=== PATIENT | male | born 1975 | race Caucasian/White ===

== ENCOUNTER 2019-05-20 14:44 | Emergency (ER) | payer OTHER, SELFPAY ==
[2019-05-20] VITALS (28 sets, daily range): BP systolic 109–133; BP diastolic 57–82; PULSE 55–77; RESP 6–19; TEMP 36.9; O2SAT 91–98
--- NOTE | 2019-05-20 14:51 | ED.GENADUL_ITS ---
Discharge Plan Disposition Patient Disposition: AGAINST MEDICAL ADVICE Condition: Stable Discharge Details Chief Complaint: Chest Pain Clinical Impression: Chest pain, Arm pain, left Primary Care Provider: Jayleen Bird ED Provider: Hillary Grijalva Home Meds and New Rx's Prescriptions: Continued acetaminophen [Tylenol] 325 MG tablet 1,000 mg PO PRN RF: 0 loratadine [Claritin] 10 MG tablet 10 mg PO PRN RF: 0 Discharge Instructions Instructions: Chest Pain (ED) Additional Instructions: Call your primary care doctor tomorrow to schedule a follow-up appointment for reevaluation and for referral for outpatient stress test. Return immediately to the emergency department if you develop any worsening or new concerning symptoms. Discharge Data Discharge Physician: Hillary Grijalva Medical Decision Making 43-year-old male with a history of sleep apnea who presents with left-sided chest pain since yesterday morning while sitting at his desk. EKG notes a rate of 65, sinus no acute ST-T wave ischemic changes, nondiagnostic. Patient is hemodynamically stable. Patient has had similar episodes over the past few years, with negative cardiac work-up each time, most recently November 2017 in which she had a negative stress test. Heart score 0. PERC negative and no DVT risk factors so doubt PE. Denies any tearing sensation so doubt dissection. As his episodes are similar to previous episodes may be associated to musculoskeletal pain, anxiety, costochondritis. We will do a cardiac work-up, chest x-ray and give a dose of nitro and reassess. 1540 -- no relief with nitro and pt now has headache. Will stop nitro and give toradol, IVF. 1630 -- labs and imaging reviewed and unremarkable. Chest x-ray negative. Patient had requested to go home per nurse. Upon my evaluation, patient admits to return of chest and left arm pain. I advised that patient obtain a second troponin EKG but he is declining at this time. The risks of and disability due to a serious cardiac pathology were explained and patient fully understands and is still requesting to leave. He demonstrates capacity make decisions. AMA form signed. He is advised to follow-up with his primary care doctor for evaluation and for referral for outpatient stress test and to return here if worse. Medical Records Medical records reviewed: Yes I reviewed the patient's medical records. ECG Data Attestation: I personally reviewed and interpreted this ECG (s) as follows: Interpretation: Rate of 65, sinus, no acute ST elevation or depression. QTc 393. QRS 99 HPI General Mode of arrival: ambulatory . Date/Time Provider Initiated Documentation: 05/20/19 14:51 . Limitations to Documentation: no limitations . Information obtained by: patient . HPI Narrative: Patient is a 43-year-old male with a history of sleep apnea who presents with left-sided chest pain since yesterday morning. Patient states he was sitting at his desk at work when the pain started. He describes it as sharp, radiating to his left arm associated with left hand numbness. He states the pain is worse with any movement. He denies any relieving factors. He has taken Tylenol last dose at 1 PM without relief. States the pain is 4/10 currently and at its worst. He admits to occasional dizziness but none at present. He denies any vomiting or shortness of breath, recent travel, recent surgery, leg pain or swelling. He denies any family history of sudden cardiac . Related Data Home Medications Medication Instructions Recorded Confirmed acetaminophen [Tylenol] 1,000 mg PO PRN 01/28/17 05/20/19 loratadine [Claritin] 10 mg PO PRN tab-cap 07/01/17 05/20/19 Allergies Allergy/AdvReac Type Severity Reaction Status Date / Time ANIMALS Allergy Intermediate Uncoded 05/20/19 14:58 Review of Systems Review of Systems All systems reviewed & are unremarkable except as noted in HPI and below Constitutional Reports as per HPI, Denies chills and Denies fever(s) Eyes Denies blurry vision ENT Denies dizziness, Denies sore throat and Denies throat swelling Cardiovascular Reports chest pain and Denies dyspnea Respiratory Denies cough and Denies dyspnea Gastrointestinal Denies abdominal pain, Denies diarrhea and Denies vomiting Genitourinary Denies hematuria and Denies dysuria Musculoskeletal Denies back pain and Denies numbness Integumentary/Breasts Denies lesions and Denies rash Neurologic Denies dizziness, Denies focal weakness and Denies numbness Allergic/Immunologic Denies throat swelling [facility] Medical History Obstructive sleep apnea (Chronic) Surgical History History of hernia repair (Chronic) History of tonsillectomy (Chronic) Hx of cholecystectomy (Chronic) Social History Smoking/Tobacco Use Status: Former Tobacco Use Alcohol Intake: current Alcohol Intake frequency: a few times a month Drug use: Never Do you feel safe at home: Yes Do you feel safe in your relationship?: Yes Exam Const General: cooperative, healthy appearing and no acute distress HENMT Head: normal to inspection Face and sinus: normal facial exam Eyes General: appearance normal, both eyes and all related structures Pupils: PERRL EOM: EOM intact bilaterally Neck Neck: normal visual inspection and No submandibular swelling Lymphatic: no lymphadenopathy noted Chest Chest: normal inspection of the chest, normal palpation of entire chest wall, no crepitus and no tenderness Resp Effort & Inspection: normal respiratory effort and able to speak in complete sentences Auscultation: clear to auscultation bilaterally Cardio Rate: regular rate Rhythm: regular rhythm GI Inspection: normal to inspection Palpation: soft, not firm, not rigid and nontender Auscultation: normal bowel sounds Back/Spine/Pelvis Pelvis: no pain with anterior-posterior compression Skin General skin exam: no rashes or lesions noted Neuro General: alert, awake and oriented x3 Cognition: normal cognition Speech: speech normal Motor: muscle tone normal throughout Sensory Exam: no sensory deficits noted Extrem General: normal to inspection, full ROM, normal capillary refill, no calf tenderness bilaterally and no edema Psych Appearance: grossly normal Mental Status: mental status grossly normal Speech and Movement: speech and movement normal Affect: normal affect
--- NOTE | 2019-05-20 15:17 | DI.RAD_ITS ---
SYMPTOM/DIAGNOSIS: CHEST PAIN, R/O ACUTE DISEASE CHEST X-RAY: PA and lateral. Comparison 11/04/17 The heart is normal in size. The lungs are clear. The mediastinal structures and pleura appear intact. CONCLUSION: Normal chest.
[2019-05-20] MEDS: Aspirin 325 MG TAB PO (15:29)
[2019-05-20 15:30] LABS: Abs Immature Grans 0.02 k/cumm (0.0-0.09); Absolute Basophil Count 0.05 k/cumm (0.0-0.2); Absolute Eosinophil Count 0.21 k/cumm (0.0-0.7); Absolute Lymphocyte Count 2.21 k/cumm (1.2-3.4); Absolute Monocyte Count 0.75 k/cumm (0.11-0.7); Absolute Neutrophil Count 5.64 k/cumm (1.2-6.7); Basophils % 0.6; Eosinophils % 2.4; HCT 46.8 % (40.0-50.0); HGB 15.7 g/dL (13.5-17.5); Immature Grans % 0.2; Lymphocytes % 24.9; Mean Corp. HGB Concentration 33.5 g/dL (32.0-36.0); Mean Corpuscular Hemoglobin 28.9 pg (27.0-33.0); Mean Corpuscular Volume 86.2 fL (80-95); Mean Platelet Volume 10.8 fL (8.0-11.0); Monocytes % 8.4; Neutrophils % 63.5; Platelet Count 289 x1000/uL (130-400); RBC 5.43 m/cumm (4.50-6.00); White Blood Cell Count 8.88 k/cumm (4.4-10.8)
[2019-05-20] MEDS: Ketorolac 30 MG/ML VIAL IVP (15:52)
[2019-05-20] MEDS: Normal Saline 1,000 ML 1000 ML IV (15:52)
[2019-05-20 16:10] LABS: ALT 29 U/L (12-78); AST 15 U/L (15-37); Albumin 3.9 g/dL (3.4-5.0); Alkaline Phosphatase 78 U/L (46-116); Anion Gap 9.7 mmol/L (3-11); BUN 17 mg/dL (7-18); Bilirubin, Total 0.3 mg/dL (0.2-1.0); CO2 27.3 mmol/L (21.0-32.0); CREATININE 1.01 mg/dL (0.70-1.30); Calcium 8.5 mg/dL (8.5-10.1); Chloride 101 mmol/L (98-107); Glucose 91 mg/dL (70-100); Magnesium 1.8 mg/dL (1.8-2.4); Potassium 4.1 mmol/L (3.5-5.1); Sodium 138 mmol/L (136-145); Total Protein 7.4 g/dL (6.4-8.2)
[2019-05-20 16:20] LABS: Troponin I < 0.05 ng/mL (0.00-0.06)
--- NOTE | 2019-05-20 16:29 | DI.VRAD_ITS ---
EXAM: XR Chest, 2 Views EXAM DATE/TIME: 05/20/2019 3:19 PM CLINICAL HISTORY: 43 years old, male; Left-sided chest pain; Patient HX: Chest pain; Per PT: Left center; Additional info: R/O acute disease TECHNIQUE: Imaging protocol: XR of the chest, 2 views. COMPARISON: CR PORTABLE CHEST ONE VIEW 11/04/2017 7:58 AM FINDINGS: Lungs: Unremarkable. No consolidation. Pleural space: Unremarkable. No pleural effusion. No pneumothorax. Heart/Mediastinum: Unremarkable. No cardiomegaly. Bones/joints: Mild scoliosis. IMPRESSION: No acute finding. Dictated and Authenticated by: Sandra Seymour MD. Ordering:ANALISA Thornton MD
== END 2019-05-20 17:10 | disposition left against medical advice (07) ==
PROVIDERS: Emergency Provider Physician Assistant; PCP Nurse Practitioner Family
DX: R07.9 Chest pain, unspecified (principal); M79.602 Pain in left arm; Z53.29 Procedure and treatment not carried out because of patient's decision for other reasons; G47.33 Obstructive sleep apnea (adult) (pediatric)
CPT/HCPCS: 36415; 80053; 93005; 96361; 96374; 99285; 71046; 83735; 84484; 85025; 93010; J1885

== ENCOUNTER 2019-12-23 11:09 | Emergency (ER) | payer MEDICAID, SELFPAY ==
[2019-12-23 11:11] VITALS: BP 137/87; PULSE 73; TEMP 36.8; O2SAT 97
--- NOTE | 2019-12-23 11:15 | DI.RAD_ITS ---
EXAM: XR FOOT RT COMPLETE CLINICAL HISTORY: pain s/p trauma. TECHNIQUE: 2D digital imaging was performed. COMPARISON: No exams were available for comparison FINDINGS: BONES: No acute fracture is present. No bony destructive lesion is seen. JOINTS: No dislocation present. There are minimal degenerative changes. SOFT TISSUE: Normal. IMPRESSION: Unremarkable radiographs of the right foot. DATA REPOSITORY: RADIATION DOSE DELIVERED:
--- NOTE | 2019-12-23 11:19 | ED.GENADUL_ITS ---
Discharge Plan Disposition Patient Disposition: HOME Condition: Stable Discharge Details Chief Complaint: Orthopedic Clinical Impression: Foot pain, right Primary Care Provider: Jayleen Bird ED Provider: Oc Ortiz Home Meds and New Rx's Prescriptions: Continued acetaminophen [Tylenol] 325 MG tablet 1,000 mg PO PRN RF: 0 loratadine [Claritin] 10 MG tablet 10 mg PO PRN RF: 0 Discharge Instructions Additional Instructions: you can take 1000mg tylenol and 600mg ibuprofen every 6 hours for pain as needed if pain continues in a week follow up with your primary care provider if you have severe worsening pain, fevers or spreading redness of the skin return to the emergency department Medical Decision Making 44 yo male comes in with right foot pain. States over a week ago hit the inner aspect on a table and has had pain since and now feels a lump so came here for ane tricia. Denies pain elsewhere such as headache, neck pain, chest pain or abdominal pain. Has no pain in the ankle with full rom, normal pulses and sensation. Pain is localized to mid 1st metatarsal and does have hard area of swelling. Suspect bone spur but will xray to eval for fx. xray unremarkable on my read, suspect contusion with swelling, advised follow up with pcp if pain contineus and return precautions given Differential Diagnosis Differential Diagnosis: fracture, bone spur Imaging Data Radiologic Study: Attestation: I personally reviewed and interpreted this imaging study as follows: Imaging: X-Ray My impression: no acute findings HPI General Mode of arrival: ambulatory . Date/Time Provider Initiated Documentation: 12/23/19 11:10 . Limitations to Documentation: no limitations . Information obtained by: patient . History of Present Illness 44 year old M presents to the emergency department with the chief complaint of right foot pain, described as moderate, Patient started experiencing this day(s) (10) and it has been constant. No relieving factors improve symptom(s), No exacerbating factors reported . Patient notes no other symptoms.. Related Data Home Medications Medication Instructions Recorded Confirmed acetaminophen [Tylenol] 1,000 mg PO PRN 01/28/17 12/23/19 loratadine [Claritin] 10 mg PO PRN tab-cap 07/01/17 12/23/19 Allergies Allergy/AdvReac Type Severity Reaction Status Date / Time ANIMALS Allergy Intermediate Uncoded 12/23/19 11:14 General Stated Complaint: Orthopedic TJ: 4 Review of Systems All systems reviewed & are unremarkable except as noted in HPI and below Constitutional Constitutional: Denies chills, Denies fever(s) and Denies weakness Cardiovascular Cardiovascular: Denies chest pain and Denies dyspnea Respiratory Respiratory: Denies cough and Denies dyspnea Gastrointestinal Gastrointestinal: Denies abdominal pain, Denies nausea and Denies vomiting Musculoskeletal Musculoskeletal: Denies joint swelling Neurologic Neurologic: Denies weakness [facility] Social History Smoking/Tobacco Use Status: Former Tobacco Use Alcohol Intake: current Alcohol Intake frequency: a few times a month Drug use: Never Substance use type: does not use Do you feel safe at home: Yes Do you feel safe in your relationship?: Yes Exam Const General: no acute distress Orientation: alert HENMT Head: normal to inspection Ears: external ears normal General nose exam: external nose normal Mouth: moist mucous membranes Eyes General: appearance normal, both eyes and all related structures Neck Neck: normal visual inspection Resp Effort & Inspection: normal respiratory effort and able to speak in complete sentences Cardio Rate: regular rate Skin General skin exam: no rashes or lesions noted Neuro General: alert and oriented x3 Extrem General: full ROM and normal capillary refill Psych Mental Status: mental status grossly normal Course Vital Signs Vital signs: Vital Signs Temperature 36.8 C 12/23/19 11:11 Pulse 73 12/23/19 11:11 Blood Pressure 137/87 12/23/19 11:11 Pulse Oximetry 97 12/23/19 11:11 Temperature 36.8 C 12/23/19 11:11 Temperature Source Temporal Artery Scan 12/23/19 11:11 Pulse 73 12/23/19 11:11 Respiratory Effort Non-Labored 12/23/19 11:13 Blood Pressure 137/87 12/23/19 11:11 Blood Pressure Position Sitting 12/23/19 11:11 Pulse Oximetry 97 12/23/19 11:11 Oxygen Delivery Method Room Air 12/23/19 11:11 Oxygen Flow Rate 0 12/23/19 11:11 Pain Level 10 12/23/19 11:11
== END 2019-12-23 11:47 | disposition home or self-care (01) ==
PROVIDERS: Emergency Provider Emergency Medicine; PCP Nurse Practitioner Family
DX: M25.571 Pain in right ankle and joints of right foot (principal)
CPT/HCPCS: 99283; 73630

== ENCOUNTER 2021-02-10 09:09 | Emergency (ER) | payer MEDICAID, SELFPAY ==
[2021-02-10] VITALS (26 sets, daily range): BP systolic 93–134; BP diastolic 65–79; PULSE 66–93; RESP 10–24; TEMP 36.4–36.6; O2SAT 99–100
--- NOTE | 2021-02-10 09:00 | RT.EKG_ITS ---
APPROVED REPORT Exam: Resting ECG Patient Location: E HR:75 bpm ECG Measurements Heart Rate 75 AXIS WV 151 P 61 QRSd 101 QRS 43 QT 354 T 68 QTc 396 Conclusion Sinus rhythm...normal P axis, V-rate 60- 99 I have reviewed and interpreted ECG and agree with software generated interpretation.
--- NOTE | 2021-02-10 09:26 | W.ED.GENAD ---
Discharge Plan Disposition Patient Disposition: HOME Condition: Stable Discharge Details Clinical Impression: Neutropenia, Colloid cyst of brain Primary Care Provider: Jayleen Bird ED Provider: Cali Curry Home Meds and New Rx's Prescriptions: Continued acetaminophen [Tylenol] 325 MG tablet 1,000 mg PO PRN RF: 0 loratadine [Claritin] 10 MG tablet 10 mg PO PRN RF: 0 Discharge Instructions Instructions: Neutropenia (ED) Additional Instructions: At this time your CT of your head reveals a colloid cyst, I personally spoke with Dr. Bran, neurosurgery at [facility] regarding this. His office will be reaching out to you Friday or Friday to set up outpatient reevaluation. Your laboratory values reveal that your white blood cell count is low and you will require further evaluation for this. I have placed you on our care management team to help expedite outpatient follow-up through your primary care provider and/or hematology-oncology. Please watch for new or worsening symptoms and return to the ER for any concerns. Discharge Data Discharge Date/Time-TO BE ENTERED AT DEPARTURE: 02/10/21 12:13 Medical Decision Making 45-year-old gentleman with no significant past medical history presents to the ER for multiple complaints. Global headache intermittent for 3 years, dizziness described more as weakness or that he could pass out, not like the room is spinning, intermittent blurry vision. He states his symptoms were worse yesterday but they have not completely resolved so he is here for evaluation. Clinically he appears well, nontoxic, neurologically intact. No nuchal rigidity. Given his multiple vague symptoms I will obtain a cardiac work-up I will also like to obtain a head CT for further evaluation of potential intracranial process. Will obtain IV access, give IV fluids, and reassess. Visual acuity bilaterally 20/25, right eye 20/50, left eye 20/30 Laboratory values reveal a white blood cell count of 0.67 hemoglobin 11.6 hematocrit 32.9 platelet count 112 absolute neutrophil 0.04. INR 1.1, sodium 130 potassium 4.2 chloride 95, creatinine 1.1 with a GFR greater than 60. Glucose 66. Calcium 8.3 magnesium 2.0 troponin less than 0.05. This neutropenia appears new however are most recent CBC is at least a couple of years old. He denies any fever or symptoms that would be consistent with acute illness. CT imaging of head revealed 8 mm colloid cyst, nothing acute. I was able to speak with with neurosurgery, Dr. Bran at [facility]. He does not believe the patient requires emergent transfer. He will have his office contact the patient on Friday or Friday of next week and set up outpatient reevaluation to discuss potential elective procedures. Given his newfound neutropenia without any obvious signs of infection, my plan is to place him on the care management list to help expedite outpatient heme-onc follow-up. I discussed his work-up including my conversation with Dr. Bran, as well as his neutropenia and my concern for underlying illness. He does understand that he will need outpatient neurology follow-up and will need follow-up with likely heme-onc for further evaluation of his neutropenia. At this time he reports that he is feeling improvement and is comfortable discharge. He was given standard discharge instructions and strict return precautions. Patient has no additional questions or concerns and is comfortable with this plan. Upon discharge he is able to ambulate steadily. Medical Records Medical records reviewed: Yes I reviewed the patient's medical records. Imaging Data Radiologic Study: Attestation: I personally reviewed and interpreted this imaging study as follows: Imaging: X-Ray Radiologist's impression: Chest x-ray read by radiology as no acute findings Radiologic Study #2: Attestation: I personally reviewed and interpreted this imaging study as follows: Imaging: CT Scan Radiologist's impression: CT of head read by radiology as an 8 mm colloid cyst at the foramen of Monro. No acute abnormality. No significant ventricular dilatation Lab Data Lab results reviewed: Yes I reviewed the patient's lab results. Labs: Laboratory Tests Range/Units 02/10/21 02/10/21 02/10/21 09:28 09:28 09:28 WBC (4.4-10.8) 10^3/uL 0.67 L* RBC (4.36-5.78) 10^6/uL 3.21 L Hgb (13.5-17.5) g/dL 11.6 L Hct (40.0-50.0) % 32.9 L MCV (80-95) fL 102.5 H MCH (27.0-33.0) pg 36.1 H MCHC (32.0-36.0) % 35.3 RDW (11.8-14.1) % 13.1 Plt Count (130-400) 10^3/uL 112 L MPV (8.0-11.0) fL 9.5 Immature Gran % 0.0 Neutrophils % 6.0 Lymphocytes % 85.0 Atypical Lymphs % 3 Monocytes % 6.0 Eosinophils % 0.0 Basophils % 0.0 Nucleated RBC % % 1 Absolute Neutrophils (1.2-6.7) 10^3/uL 0.04 L* Absolute Lymphocytes (1.2-3.4) 10^3/uL 0.59 L Absolute Monocytes (0.1-0.8) 10^3/uL 0.04 L Absolute Eosinophils (0.0-0.7) 10^3/uL 0.00 Absolute Basophils (0.0-0.2) 10^3/uL 0.00 RBC Morphology See below Basophilic Stippling Present Macrocytosis 2+ PT (9.3-11.0) sec 10.9 INR (0.9-1.1) 1.1 APTT (21.0-27.5) sec 22.5 Sodium (136-145) mmol/L 130 L Potassium (3.5-5.1) mmol/L 4.2 Chloride (98-107) mmol/L 97 L Carbon Dioxide (21.0-32.0) mmol/L 31.6 Anion Gap (3-11) mmol/L 1.4 L BUN (7-18) mg/dL 17 Creatinine (0.70-1.30) mg/dL 1.1 Estimated GFR/1.73 m2 (mL/min/1.73m2) >= 60.00 Glucose (74-106) mg/dL 66 L Calcium (8.5-10.1) mg/dL 8.3 L Magnesium (1.8-2.4) mg/dL 2.0 Total Bilirubin (0.2-1.0) mg/dL 0.3 AST (15-37) U/L 20 ALT (16-63) U/L 35 Alkaline Phosphatase (46-116) U/L 74 Troponin I (<0.06) ng/mL < 0.05 Total Protein (6.4-8.2) g/dL 7.5 Albumin (3.4-5.0) g/dL 3.9 TSH (0.36-3.74) uIU/mL 1.18 ECG Data Attestation: I personally reviewed and interpreted this ECG (s) as follows: Interpretation: Sinus rhythm, ventricular of 75. No STEMI. Please see official report by Dr. Shayla MARTINEZ General Mode of arrival: ambulatory. Date/Time Provider Initiated Documentation: 02/10/21 09:26. Limitations to Documentation: no limitations. Information obtained by: patient. HPI Narrative: This is a 45-year-old gentleman who denies significant past medical history. He denies smoking or drug use. Reports alcohol a few times a month. He presents today with multiple complaints. He reports a headache more often than not, global, intermittent for the last few years. He reports that occasionally his headaches are associated with nausea and vomiting but very infrequently. He also reports intermittent blurry vision in both eyes, was worse yesterday, almost back to baseline now. He reports dizziness has also been intermittent, the dizziness feels more like generalized weakness or like he could pass out as opposed to the room spinning. He has occasionally felt a little ataxic but has never fallen because of it. He denies recent illness or trauma. He denies neck pain, chest pain, shortness of breath, abdominal pain, nausea, vomiting, focal weakness, numbness, tingling, change in bowel or bladder habits. He tells me that nothing really makes his symptoms worse or better. Typically simply resolve on their own. Related Data Home Medications Medication Instructions Recorded Confirmed acetaminophen [Tylenol] 1,000 mg PO PRN 01/28/17 02/11/21 loratadine [Claritin] 10 mg PO PRN tab-cap 07/01/17 02/11/21 Allergies Allergy/AdvReac Type Severity Reaction Status Date / Time ANIMALS Allergy Intermediate Uncoded 02/11/21 10:23 General Stated Complaint: Dizzy/Sync TJ: 3 Review of Systems Constitutional Constitutional: Reports fatigue, Denies fever(s), Reports headache(s) and Reports weakness Eyes Eyes: Reports blurry vision and Denies diplopia ENT Ears, Nose, Mouth, and Throat: Denies vertigo, Reports dizziness, Reports headache(s) and Denies neck pain Cardiovascular Cardiovascular: Denies chest pain and Denies dyspnea Respiratory Respiratory: Denies cough and Denies dyspnea Gastrointestinal Gastrointestinal: Denies abdominal pain, Denies nausea and Denies vomiting Musculoskeletal Musculoskeletal: Denies back pain and Denies neck pain Integumentary/Breasts Skin/Breast: Denies rash Neurologic Neurologic: Denies vertigo, Reports dizziness, Reports headache(s) and Reports weakness Endocrine Endocrine: Reports fatigue Hematologic/Lymphatic Hematologic/Lymphatic: Denies easy bleeding and Denies easy bruising [facility] Medical History Obstructive sleep apnea Surgical History History of hernia repair History of tonsillectomy Hx of cholecystectomy Social History Smoking/Tobacco Use Status: Former Tobacco Use Smoking risk assessment performed?: Yes Alcohol Intake: current Alcohol Intake frequency: a few times a month Drug use: Never Substance use type: does not use Do you feel safe at home: Yes Do you feel safe in your relationship?: Yes Exam Const General: cooperative, healthy appearing, comfortable and no acute distress Orientation: alert, awake and oriented x3 HENMT Head: normal to inspection, normocephalic and atraumatic Ears: external ears normal, TM's normal bilaterally and EAC's normal General nose exam: external nose normal Face and sinus: normal facial exam Mouth: moist mucous membranes Throat: posterior oropharynx normal Eyes General: appearance normal, both eyes and all related structures Alignment and Position: alignment normal Periorbital: periorbital findings normal Eyelids: eyelids normal Conjunctivae: conjunctivae normal Sclera: sclerae normal Cornea: corneas normal Pupils: PERRL EOM: EOM intact bilaterally Direct ophthalmoscopy: normal light reflex Other: No nystagmus Neck Neck: normal visual inspection, full ROM, no lymphadenopathy, no meningeal signs, trachea midline, supple and nontender Resp Effort & Inspection: normal respiratory effort and able to speak in complete sentences Auscultation: clear to auscultation bilaterally Cardio Rate: regular rate Rhythm: regular rhythm GI Palpation: soft, not firm, no guarding and nontender Back/Spine/Pelvis Back: No back tenderness Skin General skin exam: no rashes or lesions noted Neuro General: patient alert, patient awake, patient oriented x3, moves all extremities and no focal motor deficits Cranial Nerves: CN's II-XI intact bilaterally Cognition: normal cognition Speech: speech normal Gait: normal gait Motor: muscle tone normal throughout, strength 5/5 throughout, no pronator drift, no movement abnormalities noted and no fasciculations Sensory Exam: no sensory deficits noted Coordination: [id number] test normal, [id number] test normal and Does not sway with eyes open Extrem General: normal to inspection, full ROM and capillary refill normal Psych Appearance: grossly normal Mental Status: mental status grossly normal Course Vital Signs Vital signs: Vital Signs Temperature 36.4 C L 02/10/21 09:13 Pulse 82 02/10/21 09:13 Respiratory Rate 18 02/10/21 09:13 Blood Pressure 134/79 02/10/21 09:13 Pulse Oximetry 99 02/10/21 09:13 Temperature 36.4 C L 02/10/21 09:13 Temperature Source Temporal Artery Scan 02/10/21 09:13 Pulse 82 02/10/21 09:13 Respiratory Rate 18 02/10/21 09:13 Respiratory Effort Non-Labored 02/10/21 09:18 Blood Pressure 134/79 02/10/21 09:13 Blood Pressure Position Sitting 02/10/21 09:13 Pulse Oximetry 99 02/10/21 09:13 Oxygen Delivery Method Room Air 02/10/21 09:13 Oxygen Flow Rate 0 02/10/21 09:13 Pain Level 5 02/10/21 09:13
[2021-02-10] MEDS: Normal Saline 1,000 ML 125 ML IV (09:45)
[2021-02-10] MEDS: Normal Saline Flush 10 ML SYR IVP (09:45)
[2021-02-10 09:49] LABS: HCT 32.9 % (40.0-50.0); HGB 11.6 g/dL (13.5-17.5); MCH 36.1 pg (27.0-33.0); MCHC 35.3 % (32.0-36.0); MCV 102.5 fL (80-95); MPV 9.5 fL (8.0-11.0); RBC 3.21 10^6/uL (4.36-5.78); RDW 13.1 % (11.8-14.1); RDW-SD 49.1 fL
--- NOTE | 2021-02-10 10:02 | DI.CT_ITS ---
EXAM: CT HEAD WO CLINICAL HISTORY: CARCAMO, blurry vision, dizzy. TECHNIQUE: Imaging Protocol: Axial computed tomography images with coronal and sagittal reformatted images were created and reviewed COMPARISON: CT HEAD WITHOUT CONTRAST from 07/17/2016 FINDINGS: Ventricles and Extra axial spaces: Normal in size and morphology for the patient's age. There is an 0 .8 cm round hyperdense mass at the foramen of Monro. This is consistent with a colloid cyst. Hemorrhage: None. Cerebral parenchyma: Normal. No acute territorial infarct. Midline shift: None. Brainstem/Cerebellum: Normal. Calvarium: Normal. Visualized Paranasal sinuses/Mastoids: Clear. Soft Tissues: Unremarkable. IMPRESSION: 1. No acute intracranial process. 2. Round hyperdense mass at the foramen of Monro most consistent with a colloid cyst. 3. No ventricular dilatation. RADIATION DOSE DELIVERED: 946.92mGy.cm Total DLP DATA REPOSITORY: All CT scans at this facility are submitted to the National Radiology Data Registry (NRDR) Dose Index Registry (DIR) with the [employer] ([employer]). RADIATION OPTIMIZATION: All CT scans at this facility use at least one of these dose optimization te chniques: automated exposure control; mA and/or kV adjustment per patient size (includes targeted exa ms where dose is matched to clinical indication); or iterative reconstruction.
[2021-02-10 10:05] LABS: INR 1.1 (0.9-1.1); PTT Activated 22.5 sec (21.0-27.5); Prothrombin Time 10.9 sec (9.3-11.0)
--- NOTE | 2021-02-10 10:07 | DI.RAD_ITS ---
EXAM: XR CHEST 2V PA LATERAL CLINICAL HISTORY: dizzy TECHNIQUE: 2D digital imaging was performed. COMPARISON: CR XR CHEST 2V PA LATERAL from 05/20/2019 FINDINGS: MEDIASTINUM: Normal. HEART: Normal. PULMONARY VASCULATURE: Normal. LUNGS: Clear. PLEURAL SPACE: No pleural effusion or pneumothorax. BONE:Within normal limits for the patient's age. Stable scoliosis. OTHER FINDINGS:Normal. IMPRESSION: No acute pulmonary findings. DATA REPOSITORY: RADIATION DOSE DELIVERED:
[2021-02-10 10:11] LABS: Absolute Neutrophil Count 0.04 10^3/uL (1.2-6.7); Nucleated RBC 1 %; WBC 0.67 10^3/uL (4.4-10.8)
[2021-02-10 10:12] LABS: ALT 35 U/L (16-63); AST 20 U/L (15-37); Absolute Lymphocyte Count 0.59 10^3/uL (1.2-3.4); Albumin 3.9 g/dL (3.4-5.0); Alkaline Phosphatase 74 U/L (46-116); Anion Gap 1.4 mmol/L (3-11); Atypical Lymphocytes % 3; BUN 17 mg/dL (7-18); Bilirubin, Total 0.3 mg/dL (0.2-1.0); CO2 31.6 mmol/L (21.0-32.0); CREATININE 1.1 mg/dL (0.70-1.30); Calcium 8.3 mg/dL (8.5-10.1); Chloride 97 mmol/L (98-107); Glucose 66 mg/dL (74-106); Potassium 4.2 mmol/L (3.5-5.1); Sodium 130 mmol/L (136-145); TSH (W/Ref FT4) 1.18 uIU/mL (0.36-3.74); Total Protein 7.5 g/dL (6.4-8.2); Troponin I < 0.05 ng/mL (<0.06)
[2021-02-10 10:13] LABS: Absolute Monocyte Count 0.04 10^3/uL (0.1-0.8)
[2021-02-10 10:14] LABS: Basophilic Stippling Present; Diff Comment Manual Differential; Macrocytosis 2+; Platelet Count 112 10^3/uL (130-400)
--- NOTE | 2021-02-10 10:24 | DI.VRAD_ITS ---
PROCEDURE INFORMATION: Exam: CT Head Without Contrast Exam date and time: 02/10/2021 10:03 AM Age: 45 years old Clinical indication: Pain; Headache not specified; Patient HX: Headache, blurry vision, dizzy. TECHNIQUE: Imaging protocol: Computed tomography of the head without contrast. COMPARISON: CT HEAD WITHOUT CONTRAST 07/17/2016 2:57 PM FINDINGS: Brain: The examination shows a rounded hyperdense mass measuring 8 mm in diameter at the foramen of Monro. This is consistent with a colloid cyst. There is no significant ventricular dilatation. No abnormal parenchymal densities are seen. There is no intracranial hemorrhage edema or other acute abnormality. Cerebral ventricles: The ventricles are not dilated. Bones/joints: Unremarkable. No acute fracture. Paranasal sinuses: Visualized sinuses are unremarkable. No fluid levels. Mastoid air cells: Visualized mastoid air cells are well aerated. Soft tissues: Unremarkable. IMPRESSION: 1. There is an 8 mm colloid cyst at the foramen of Monro. 2. No acute abnormality. 3. No significant ventricular dilatation. Dictated and Authenticated by: Moshe Henderson MD. Ordering:YADIEL Leiva MD
--- NOTE | 2021-02-10 10:26 | DI.VRAD_ITS ---
PROCEDURE INFORMATION: Exam: XR Chest Exam date and time: 02/10/2021 10:09 AM Age: 45 years old Clinical indication: Pain; Patient HX: Dizzy SOB TECHNIQUE: Imaging protocol: XR of the chest. Views: 2 views. COMPARISON: CR XR CHEST 2V PA LATERAL 05/20/2019 4:01 PM FINDINGS: Lungs: Unremarkable. No consolidation. Pleural spaces: Unremarkable. No pleural effusion. No pneumothorax. Heart/Mediastinum: Unremarkable. No cardiomegaly. Bones/joints: Mild scoliosis. IMPRESSION: No acute findings. Dictated and Authenticated by: Moshe Henderson MD. Ordering:YADIEL Leiva MD
--- NOTE | 2021-02-10 12:15 | NUR.NOTE ---
Referral given to Care Management to f/u with heme onc at [facility] [place] to f/u neutropeniaNursing Note:
== END 2021-02-10 12:13 | disposition home or self-care (01) ==
PROVIDERS: Emergency Provider Physician Assistant; PCP Nurse Practitioner Family
DX: D70.9 Neutropenia, unspecified (principal); G93.0 Cerebral cysts
CPT/HCPCS: 80053; 93005; 96360; 99285; 70450; 71046; 83735; 84443; 84484; 85025; 85610; 85730; 93010; 99284

== ENCOUNTER 2021-02-11 10:16 | Inpatient (IN) | payer MEDICAID, SELFPAY ==
[2021-02-11] VITALS (51 sets, daily range): BP systolic 88–145; BP diastolic 67–83; PULSE 63–104; RESP 9–29; TEMP 36.7–38.9; O2SAT 97–100
[2021-02-11] MEDS: Normal Saline 1,000 ML 1000 ML IV (10:34)
[2021-02-11] MEDS: Ondansetron 4 MG/2 ML VIAL IVP (10:34)
[2021-02-11 10:44] LABS: HCT 31.5 % (40.0-50.0); HGB 11.1 g/dL (13.5-17.5); MCH 35.7 pg (27.0-33.0); MCHC 35.2 % (32.0-36.0); MCV 101.3 fL (80-95); MPV 9.6 fL (8.0-11.0); Nucleated RBC 0 %; RBC 3.11 10^6/uL (4.36-5.78); RDW 12.8 % (11.8-14.1); RDW-SD 47.8 fL
[2021-02-11 10:52] LABS: ALT 34 U/L (16-63); AST 21 U/L (15-37); Albumin 3.9 g/dL (3.4-5.0); Alkaline Phosphatase 72 U/L (46-116); Anion Gap 8.3 mmol/L (3-11); BUN 16 mg/dL (7-18); Bilirubin, Total 0.4 mg/dL (0.2-1.0); CO2 30.7 mmol/L (21.0-32.0); Calcium 8.5 mg/dL (8.5-10.1); Chloride 103 mmol/L (98-107); Glucose 144 mg/dL (74-106); Potassium 4.3 mmol/L (3.5-5.1); Sodium 142 mmol/L (136-145); Total Protein 7.4 g/dL (6.4-8.2)
[2021-02-11 11:12] LABS: WBC 0.64 10^3/uL (4.4-10.8)
[2021-02-11 11:13] LABS: Platelet Count 99 10^3/uL (130-400)
[2021-02-11 11:14] LABS: Absolute Lymphocyte Count 0.55 10^3/uL (1.2-3.4); Absolute Monocyte Count 0.03 10^3/uL (0.1-0.8); Atypical Lymphocytes % 3
[2021-02-11 11:15] LABS: Absolute Neutrophil Count 0.06 10^3/uL (1.2-6.7); Basophilic Stippling Present; Diff Comment Manual Differential; Polychromasia Present
[2021-02-11] MEDS: ACETAMINOPHEN 1,000 MG/100 ML BTL 400 MG IVPB (11:17)
[2021-02-11 11:59] LABS: Bilirubin Negative (Negative); Blood Negative (Negative); Clarity Clear (Clear); Glucose Negative (Negative); Ketones Negative (Negative); Leukocyte Esterase Negative (Negative); Nitrite Negative (Negative); Urobilinogen 0.2 EU/dL (Up TO 0.2)
[2021-02-11 12:40] LABS: Mono Screening Negative (Negative)
--- NOTE | 2021-02-11 12:41 | W.ED.GENAD ---
Discharge Plan Disposition Patient Disposition: [facility] INPATIENT Condition: Serious Discharge Details Chief Complaint: Headache Clinical Impression: Pancytopenia, Headache, Dizziness Primary Care Provider: Jayleen Bird ED Provider: Cali Curry Home Meds and New Rx's Prescriptions: No Action acetaminophen [Tylenol] 325 MG tablet 1,000 mg PO PRN RF: 0 loratadine [Claritin] 10 MG tablet 10 mg PO PRN RF: 0 Medical Decision Making 45-year-old gentleman who denies any significant past medical history presents to the ER today for ongoing symptoms. He was actually seen in the ER yesterday by me, diagnosed with neutropenia and a colloid cyst. Neurosurgery was contacted and will follow him as an outpatient. During his evaluation yesterday he reported that his symptoms have been increasing in frequency and severity over the past couple of weeks although when I personally saw him he reports his symptoms were worse yesterday than they were at the time of his visit. He was subsequently discharged and went home feeling well throughout the evening. He awoke this morning and reports that his symptoms have returned. Nausea, vomiting, photosensitivity, headache, generalized weakness, feeling like he could pass out, blurry vision. Clinically he appears well, nontoxic, no meningeal signs, and is neurologically intact. Given his neutropenia, will obtain IV access, repeat laboratory values and recheck to heme-onc at [facility]. At [address] Ponce. He reports that the differential is wide and he certainly needs a further evaluation and work-up. Based upon the patient's clinical presentation he feels as though the patient does not meet requirement to transfer emergently to his facility and believes the patient could be evaluated at our facility. If our hospitalist team is uncomfortable with our plan then he recommends I speak with their hospitalist team. In the meantime he recommends adding on a folate, B12, TSH, blood cultures, urinalysis. Plus or minus an LP if clinically indicated. He also brings up the idea of a atypical endocarditis presentation. He would also recommend seeing if we can get a blood smear evaluated by a pathologist in a more timely fashion. Ultimately he believes the patient will need a bone biopsy. I then spoke with our pathologist, Dr. Noble. He agrees that the case is interesting in the differential is wide from myeloid neoplastic disorder, infectious process, DIC, etc. He recommends adding on an LDH. He is able to let me know that the smear will be read likely tomorrow morning. Patient is afebrile, no meningeal signs. He reports a headache intermittent for years. Difficult to say that an LP is emergently indicated, especially in the setting of neutropenia if this is not infectious we could introduce infection or other complications. Patient was given 1 g IV Tylenol, reports his headache is a 6 out of 10 and declines any additional pain medication. I then discussed the case with our hospitalist team Dr. Jimenez. He recommends adding on a CRP, D-dimer, Covid test, Monospot. He is agreeable to admission but would like to await the Covid test to know where to place the patient. D-dimer elevated, negative Covid test. CTA of chest and abdomen and pelvis CT with contrast ordered, awaiting admission. Medical Records Medical records reviewed: Yes I reviewed the patient's medical records. Lab Data Lab results reviewed: Yes I reviewed the patient's lab results. Lab results narrative: 02/11/21 12:34 Blood Blood Culture - Pending 02/11/21 12:05 Blood Blood Culture - Pending Laboratory Tests Range/Units 02/11/21 02/11/21 02/11/21 10:30 10:30 10:30 WBC (4.4-10.8) 10^3/uL 0.64 L* RBC (4.36-5.78) 10^6/uL 3.11 L Hgb (13.5-17.5) g/dL 11.1 L Hct (40.0-50.0) % 31.5 L MCV (80-95) fL 101.3 H MCH (27.0-33.0) pg 35.7 H MCHC (32.0-36.0) % 35.2 RDW (11.8-14.1) % 12.8 Plt Count (130-400) 10^3/uL 99 L MPV (8.0-11.0) fL 9.6 Immature Gran % 0.0 Neutrophils % 9.0 Lymphocytes % 83.0 Atypical Lymphs % 3 Monocytes % 5.0 Eosinophils % 0.0 Basophils % 0.0 Nucleated RBC % % 0 Absolute Neutrophils (1.2-6.7) 10^3/uL 0.06 L* Absolute Lymphocytes (1.2-3.4) 10^3/uL 0.55 L Absolute Monocytes (0.1-0.8) 10^3/uL 0.03 L Absolute Eosinophils (0.0-0.7) 10^3/uL 0.00 Absolute Basophils (0.0-0.2) 10^3/uL 0.00 RBC Morphology See below Polychromasia Present Basophilic Stippling Present D-Dimer (<500) ng/mlFEU > 7500 H Sodium (136-145) mmol/L 142 D Potassium (3.5-5.1) mmol/L 4.3 Chloride (98-107) mmol/L 103 Carbon Dioxide (21.0-32.0) mmol/L 30.7 Anion Gap (3-11) mmol/L 8.3 BUN (7-18) mg/dL 16 Creatinine (0.70-1.30) mg/dL 1.0 Estimated GFR/1.73 m2 (mL/min/1.73m2) >= 60.00 Glucose (74-106) mg/dL 144 H D Calcium (8.5-10.1) mg/dL 8.5 Total Bilirubin (0.2-1.0) mg/dL 0.4 AST (15-37) U/L 21 ALT (16-63) U/L 34 Alkaline Phosphatase (46-116) U/L 72 Lactate Dehydrogenase (85-227) U/L C-Reactive Protein (0.0-0.3) mg/dL Total Protein (6.4-8.2) g/dL 7.4 Albumin (3.4-5.0) g/dL 3.9 Vitamin B12 (193-986) pg/mL Folate (8.6-20.0) ng/mL TSH (0.36-3.74) uIU/mL Urine Color (Yellow) Urine Clarity (Clear) Urine pH (5-8) Ur Specific [place] (1.005-1.025) Urine Protein (Negative) mg/dL Urine Ketones (Negative) mg/dL Urine Blood (Negative) Urine Nitrite (Negative) Urine Bilirubin (Negative) Urine Urobilinogen (Up TO 0.2) EU/dL Ur Leukocyte Esterase (Negative) Urine Glucose (Negative) mg/dL COVID-19 Source SARS-CoV-2 (PCR) (Negative) Monoscreen (Negative) Range/Units 02/11/21 02/11/21 02/11/21 10:30 11:52 12:34 WBC (4.4-10.8) 10^3/uL RBC (4.36-5.78) 10^6/uL Hgb (13.5-17.5) g/dL Hct (40.0-50.0) % MCV (80-95) fL MCH (27.0-33.0) pg MCHC (32.0-36.0) % RDW (11.8-14.1) % Plt Count (130-400) 10^3/uL MPV (8.0-11.0) fL Immature Gran % Neutrophils % Lymphocytes % Atypical Lymphs % Monocytes % Eosinophils % Basophils % Nucleated RBC % % Absolute Neutrophils (1.2-6.7) 10^3/uL Absolute Lymphocytes (1.2-3.4) 10^3/uL Absolute Monocytes (0.1-0.8) 10^3/uL Absolute Eosinophils (0.0-0.7) 10^3/uL Absolute Basophils (0.0-0.2) 10^3/uL RBC Morphology Polychromasia Basophilic Stippling D-Dimer (<500) ng/mlFEU Sodium (136-145) mmol/L Potassium (3.5-5.1) mmol/L Chloride (98-107) mmol/L Carbon Dioxide (21.0-32.0) mmol/L Anion Gap (3-11) mmol/L BUN (7-18) mg/dL Creatinine (0.70-1.30) mg/dL Estimated GFR/1.73 m2 (mL/min/1.73m2) Glucose (74-106) mg/dL Calcium (8.5-10.1) mg/dL Total Bilirubin (0.2-1.0) mg/dL AST (15-37) U/L ALT (16-63) U/L Alkaline Phosphatase (46-116) U/L Lactate Dehydrogenase (85-227) U/L C-Reactive Protein (0.0-0.3) mg/dL Total Protein (6.4-8.2) g/dL Albumin (3.4-5.0) g/dL Vitamin B12 (193-986) pg/mL > 2000 H Folate (8.6-20.0) ng/mL 15.7 TSH (0.36-3.74) uIU/mL 1.47 Urine Color (Yellow) Yellow Urine Clarity (Clear) Clear Urine pH (5-8) 6.0 Ur Specific [place] (1.005-1.025) 1.020 Urine Protein (Negative) mg/dL Negative Urine Ketones (Negative) mg/dL Negative Urine Blood (Negative) Negative Urine Nitrite (Negative) Negative Urine Bilirubin (Negative) Negative Urine Urobilinogen (Up TO 0.2) EU/dL 0.2 Ur Leukocyte Esterase (Negative) Negative Urine Glucose (Negative) mg/dL Negative COVID-19 Source SARS-CoV-2 (PCR) (Negative) Monoscreen (Negative) Negative Range/Units 02/11/21 02/11/21 02/11/21 12:34 12:34 12:35 WBC (4.4-10.8) 10^3/uL RBC (4.36-5.78) 10^6/uL Hgb (13.5-17.5) g/dL Hct (40.0-50.0) % MCV (80-95) fL MCH (27.0-33.0) pg MCHC (32.0-36.0) % RDW (11.8-14.1) % Plt Count (130-400) 10^3/uL MPV (8.0-11.0) fL Immature Gran % Neutrophils % Lymphocytes % Atypical Lymphs % Monocytes % Eosinophils % Basophils % Nucleated RBC % % Absolute Neutrophils (1.2-6.7) 10^3/uL Absolute Lymphocytes (1.2-3.4) 10^3/uL Absolute Monocytes (0.1-0.8) 10^3/uL Absolute Eosinophils (0.0-0.7) 10^3/uL Absolute Basophils (0.0-0.2) 10^3/uL RBC Morphology Polychromasia Basophilic Stippling D-Dimer (<500) ng/mlFEU Sodium (136-145) mmol/L Potassium (3.5-5.1) mmol/L Chloride (98-107) mmol/L Carbon Dioxide (21.0-32.0) mmol/L Anion Gap (3-11) mmol/L BUN (7-18) mg/dL Creatinine (0.70-1.30) mg/dL Estimated GFR/1.73 m2 (mL/min/1.73m2) Glucose (74-106) mg/dL Calcium (8.5-10.1) mg/dL Total Bilirubin (0.2-1.0) mg/dL AST (15-37) U/L ALT (16-63) U/L Alkaline Phosphatase (46-116) U/L Lactate Dehydrogenase (85-227) U/L 189 C-Reactive Protein (0.0-0.3) mg/dL 0.16 Total Protein (6.4-8.2) g/dL Albumin (3.4-5.0) g/dL Vitamin B12 (193-986) pg/mL Folate (8.6-20.0) ng/mL TSH (0.36-3.74) uIU/mL Urine Color (Yellow) Urine Clarity (Clear) Urine pH (5-8) Ur Specific [place] (1.005-1.025) Urine Protein (Negative) mg/dL Urine Ketones (Negative) mg/dL Urine Blood (Negative) Urine Nitrite (Negative) Urine Bilirubin (Negative) Urine Urobilinogen (Up TO 0.2) EU/dL Ur Leukocyte Esterase (Negative) Urine Glucose (Negative) mg/dL COVID-19 Source Nasal/nares SARS-CoV-2 (PCR) (Negative) Negative Monoscreen (Negative) HPI General Mode of arrival: wheelchair. Date/Time Provider Initiated Documentation: 02/11/21 10:21. Limitations to Documentation: no limitations. Information obtained by: patient. HPI Narrative: This is a 45-year-old gentleman who denies significant past medical history. Patient was seen in the ER yesterday and evaluated by me, please see my note from yesterday as well. In short, he reports global headache over the past few years is there more often than not, typically takes [id number] medication for his symptoms. He has had what he describes as intermittent dizzy spells and blurry vision however they have increased in severity and frequency over the past couple of weeks. He describes his dizziness more of a sensation as he could fall or pass out. He has not fallen or passed out. 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 He was also diagnosed with neutropenia, last lab value back in 2019, unclear how acute this is. He has no infectious symptoms. He was placed on the care management list to help expedite outpatient hematology-oncology evaluation. Patient reports that after leaving the ER yesterday he felt fairly well throughout the evening but upon awakening this morning he felt as though his symptoms were as severe today as they were 2 days ago. He reports a global headache worse in the posterior aspect, nausea, vomiting, mild photosensitivity. He reports to me that he does occasionally have nausea, vomiting, photosensitivity with his headaches but the symptoms are not always present with his headache. Since leaving the ER yesterday he denies any trauma. He tells me that he took [id number] medications before arriving in the ER, reports his headache is a 7 out of 10. He tells me that this headache is bearable and does not want anything stronger for his discomfort. Related Data Home Medications Medication Instructions Recorded Confirmed acetaminophen [Tylenol] 1,000 mg PO PRN 01/28/17 02/11/21 loratadine [Claritin] 10 mg PO PRN tab-cap 07/01/17 02/11/21 Allergies Allergy/AdvReac Type Severity Reaction Status Date / Time ANIMALS Allergy Intermediate Uncoded 02/11/21 10:23 General Stated Complaint: Headache TJ: 2 Review of Systems Constitutional Constitutional: Reports fatigue, Denies fever(s) and Reports headache(s) Eyes Eyes: Reports blurry vision ENT Ears, Nose, Mouth, and Throat: Reports dizziness and Reports headache(s) Cardiovascular Cardiovascular: Denies chest pain and Denies dyspnea Respiratory Respiratory: Denies cough and Denies dyspnea Gastrointestinal Gastrointestinal: Denies abdominal pain, Reports nausea and Reports vomiting Genitourinary Genitourinary: Denies dysuria Musculoskeletal Musculoskeletal: Denies back pain, Denies numbness and Denies tingling Integumentary/Breasts Skin/Breast: Denies rash Neurologic Neurologic: Reports dizziness, Reports headache(s), Denies numbness, Denies tingling and Reports weakness (Generalized) Endocrine Endocrine: Reports fatigue Hematologic/Lymphatic Hematologic/Lymphatic: Denies easy bleeding and Denies easy bruising [facility] Medical History (Updated 02/11/21 @ 14:48 by JUNE Nagy) Obstructive sleep apnea Surgical History History of hernia repair History of tonsillectomy Hx of cholecystectomy Social History Smoking/Tobacco Use Status: Former Tobacco Use Smoking risk assessment performed?: Yes Alcohol Intake: current Alcohol Intake frequency: a few times a month Drug use: Never Substance use type: does not use Do you feel safe at home: Yes Do you feel safe in your relationship?: Yes Exam Const General: cooperative, healthy appearing, comfortable and no acute distress Orientation: alert, awake and oriented x3 HENNM Head: normal to inspection, normocephalic and atraumatic Face and sinus: normal facial exam Eyes General: appearance normal, both eyes and all related structures Alignment and Position: alignment normal Periorbital: periorbital findings normal Eyelids: eyelids normal Conjunctivae: conjunctivae normal Sclera: sclerae normal Cornea: corneas normal Pupils: PERRL EOM: EOM intact bilaterally Direct ophthalmoscopy: normal light reflex Other: No nystagmus Neck Neck: normal visual inspection, full ROM, no lymphadenopathy, no meningeal signs, trachea midline, supple, negative Brudzinski's sign, negative Kernig's sign and nontender Resp Effort & Inspection: normal respiratory effort and able to speak in complete sentences Auscultation: clear to auscultation bilaterally Cardio Rate: regular rate Rhythm: regular rhythm GI Palpation: soft, not firm, no guarding and nontender Back/Spine/Pelvis Back: No back tenderness Skin General skin exam: no rashes or lesions noted Neuro General: patient alert, patient awake, patient oriented x3, moves all extremities and no focal motor deficits Cranial Nerves: CN's II-XI intact bilaterally Cognition: normal cognition Speech: speech normal Gait: normal gait Motor: muscle tone normal throughout and strength 5/5 throughout Sensory Exam: no sensory deficits noted Extrem General: normal to inspection, full ROM and capillary refill normal Psych Appearance: grossly normal Mental Status: mental status grossly normal Course Vital Signs Vital signs: Vital Signs Temperature 36.7 C 02/11/21 10:20 Pulse 82 02/11/21 10:20 Respiratory Rate 20 02/11/21 10:20 Blood Pressure 145/76 H 02/11/21 10:20 Pulse Oximetry 98 02/11/21 10:20 Temperature 36.7 C 02/11/21 10:20 Temperature Source Skin 02/11/21 10:20 Pulse 77 02/11/21 11:46 Pulse 71 02/11/21 11:46 Respiratory Rate 17 02/11/21 11:46 Respiratory Effort Non-Labored 02/11/21 10:23 Blood Pressure 105/71 02/11/21 11:46 Blood Pressure Mean 79 02/11/21 11:46 Blood Pressure Position Sitting 02/11/21 10:20 Pulse Oximetry 100 02/11/21 11:46 Oxygen Delivery Method Room Air 02/11/21 10:20 Oxygen Flow Rate 0 02/11/21 10:20 Pain Level 7 02/11/21 10:20 Lab/Test Results Lab/Test Results: 02/11/21 12:05 Blood Blood Culture - Pending 02/11/21 11:50 Blood Blood Culture - Pending Laboratory Tests Range/Units 02/11/21 02/11/21 02/11/21 10:30 10:30 10:30 WBC (4.4-10.8) 10^3/uL 0.64 L* RBC (4.36-5.78) 10^6/uL 3.11 L Hgb (13.5-17.5) g/dL 11.1 L Hct (40.0-50.0) % 31.5 L MCV (80-95) fL 101.3 H MCH (27.0-33.0) pg 35.7 H MCHC (32.0-36.0) % 35.2 RDW (11.8-14.1) % 12.8 Plt Count (130-400) 10^3/uL 99 L MPV (8.0-11.0) fL 9.6 Immature Gran % 0.0 Neutrophils % 9.0 Lymphocytes % 83.0 Atypical Lymphs % 3 Monocytes % 5.0 Eosinophils % 0.0 Basophils % 0.0 Nucleated RBC % % 0 Absolute Neutrophils (1.2-6.7) 10^3/uL 0.06 L* Absolute Lymphocytes (1.2-3.4) 10^3/uL 0.55 L Absolute Monocytes (0.1-0.8) 10^3/uL 0.03 L Absolute Eosinophils (0.0-0.7) 10^3/uL 0.00 Absolute Basophils (0.0-0.2) 10^3/uL 0.00 RBC Morphology See below Polychromasia Present Basophilic Stippling Present Sodium (136-145) mmol/L 142 D Potassium (3.5-5.1) mmol/L 4.3 Chloride (98-107) mmol/L 103 Carbon Dioxide (21.0-32.0) mmol/L 30.7 Anion Gap (3-11) mmol/L 8.3 BUN (7-18) mg/dL 16 Creatinine (0.70-1.30) mg/dL 1.0 Estimated GFR/1.73 m2 (mL/min/1.73m2) >= 60.00 Glucose (74-106) mg/dL 144 H D Calcium (8.5-10.1) mg/dL 8.5 Total Bilirubin (0.2-1.0) mg/dL 0.4 AST (15-37) U/L 21 ALT (16-63) U/L 34 Alkaline Phosphatase (46-116) U/L 72 Total Protein (6.4-8.2) g/dL 7.4 Albumin (3.4-5.0) g/dL 3.9 Urine Color (Yellow) Urine Clarity (Clear) Urine pH (5-8) Ur Specific [place] (1.005-1.025) Urine Protein (Negative) mg/dL Urine Ketones (Negative) mg/dL Urine Blood (Negative) Urine Nitrite (Negative) Urine Bilirubin (Negative) Urine Urobilinogen (Up TO 0.2) EU/dL Ur Leukocyte Esterase (Negative) Urine Glucose (Negative) mg/dL Monoscreen (Negative) Negative Range/Units 02/11/21 11:52 WBC (4.4-10.8) 10^3/uL RBC (4.36-5.78) 10^6/uL Hgb (13.5-17.5) g/dL Hct (40.0-50.0) % MCV (80-95) fL MCH (27.0-33.0) pg MCHC (32.0-36.0) % RDW (11.8-14.1) % Plt Count (130-400) 10^3/uL MPV (8.0-11.0) fL Immature Gran % Neutrophils % Lymphocytes % Atypical Lymphs % Monocytes % Eosinophils % Basophils % Nucleated RBC % % Absolute Neutrophils (1.2-6.7) 10^3/uL Absolute Lymphocytes (1.2-3.4) 10^3/uL Absolute Monocytes (0.1-0.8) 10^3/uL Absolute Eosinophils (0.0-0.7) 10^3/uL Absolute Basophils (0.0-0.2) 10^3/uL RBC Morphology Polychromasia Basophilic Stippling Sodium (136-145) mmol/L Potassium (3.5-5.1) mmol/L Chloride (98-107) mmol/L Carbon Dioxide (21.0-32.0) mmol/L Anion Gap (3-11) mmol/L BUN (7-18) mg/dL Creatinine (0.70-1.30) mg/dL Estimated GFR/1.73 m2 (mL/min/1.73m2) Glucose (74-106) mg/dL Calcium (8.5-10.1) mg/dL Total Bilirubin (0.2-1.0) mg/dL AST (15-37) U/L ALT (16-63) U/L Alkaline Phosphatase (46-116) U/L Total Protein (6.4-8.2) g/dL Albumin (3.4-5.0) g/dL Urine Color (Yellow) Yellow Urine Clarity (Clear) Clear Urine pH (5-8) 6.0 Ur Specific [place] (1.005-1.025) 1.020 Urine Protein (Negative) mg/dL Negative Urine Ketones (Negative) mg/dL Negative Urine Blood (Negative) Negative Urine Nitrite (Negative) Negative Urine Bilirubin (Negative) Negative Urine Urobilinogen (Up TO 0.2) EU/dL 0.2 Ur Leukocyte Esterase (Negative) Negative Urine Glucose (Negative) mg/dL Negative Monoscreen (Negative)
[2021-02-11 12:45] LABS: Source Nasal/Nares
[2021-02-11 12:57] LABS: C-Reactive Protein 0.16 mg/dL (0.0-0.3)
[2021-02-11 13:00] LABS: LDH 189 U/L (85-227)
[2021-02-11 13:05] LABS: D-Dimer > 7500 ng/mlFEU (<500)
[2021-02-11 13:12] LABS: TSH (W/Ref FT4) 1.47 uIU/mL (0.36-3.74)
--- NOTE | 2021-02-11 13:26 | DI.CT_ITS ---
EXAM: CT CHEST PE ABD PELVIS W CLINICAL HISTORY: elevated dimer. TECHNIQUE: Imaging Protocol: Axial CT angiography was performed with multi-slice acquisition and m ulti-planar and/or 3D reconstructions. CONTRAST MATERIAL: Intravenous: Omnipaque 350 Contrast volume:100 ml Oral: None COMPARISON: CT CTA THORAX from 11/04/2017 FINDINGS: CHEST: PULMONARY ARTERIES: Slightly less than optimal technique. There are no obvious intra-arterial fillin g defects to suggest the presence of acute pulmonary emboli. LUNGS: There are no confluent infiltrates nor pleural effusions. No pneumothorax.. In the lateral a spect of the right upper lobe there is a subtle 8 x 6 millimeter nodular density which was not previo usly present and will require follow-up.Lateral to this is a subtle 3 x 2 millimeter pleural based de nsity which is unchanged from November 2017 and therefore benign. In addition, there is a small nodul e in the peripheral aspect of the superior segment of the right upper lobe which measures 5 millimete rs and is unchanged from November 2017 and therefore probably benign. Lower down in the right lung th ere is a pleural-based 5 millimeter noncalcified nodule which exhibits minimal change from 2018. Low er down in the anterior right lung base-right middle lobe there is a small area of subpleural infiltr ate measuring 10 x 6 millimeters, not previously present. Requires follow-up. There is no pleural e ffusion. In the opposite-left lung there are no significant focal findings nor pleural effusion. No obvious findings in trachea and mainstem bronchi. MEDIASTINUM: There is no hilar nor mediastinal adenopathy. Visualized thyroid unremarkable. CARDIAC: Heart size is normal. There is no pericardial effusion. There is no significant shift of t he interventricular septum.Caliber thoracic aorta is within normal limits. There is no evidence of a ortic dissection. OSSEOUS: No significant osseous lesions.. ABDOMEN: There is no ascites. LIVER: There are no focal hepatic lesions nor dilatation of intrahepatic ducts. GALLBLADDER/BILIARY: The gallbladder is again noted to be surgically absent. The CBD is not dilated. PANCREAS: No evidence of pancreatic mass nor dilatation of the pancreatic duct. SPLEEN: Spleen is not enlarged. There is a subtle small hypodensity posterior aspect of the spleen m easuring 5 millimeters. Splenic and portal veins are patent. ADRENALS: There are no significant adrenal masses. KIDNEYS:There are multiple small peripherally located low-attenuation areas in both kidneys, not havi ng the appearance of typical simple cysts. Ultrasound recommended there are no intrarenal calculi no r hydronephrosis.. Ureters are not dilated. Urinary bladder is slightly distended. Otherwise unrem arkable. ABDOMINAL AORTA: Abdominal aorta diameters upper normal. Distally there is some atherosclerotic dise ase of the aorta just above the bifurcation below the patent inferior mesenteric artery takeoff point . Diameter of the distal most abdominal aorta is 1.7 cm. There is no significant arterial megaly of the iliac arteries. LYMPH NODES: There is no retroperitoneal or para-aortic adenopathy. ABDOMINAL WALL/GI: No evidence of significant anterior abdominal wall hernia. Fluid-filled but upper normal diameter small bowel loops. No true bowel obstruction. Colon is not collapsed. PELVIS: LYMPH NODES: There is no intrapelvic nor inguinal adenopathy. GI: No evidence of appendicitis.No evidence of sigmoid diverticulitis. URINARY BLADDER: No calculi nor masses evident REPRODUCTIVE: Prostate not enlarged. OSSEOUS: No significant osseous lesions. IMPRESSION: 1. No evidence of acute pulmonary emboli nor pulmonary infarction. 2. However, there are small nodular densities in the right lung, some unchanged from November 2017 and some not previously present. Recommend follow-up CT scan in 3 months. No pleural effusions nor obv ious intrathoracic adenopathy. 3. Multiple small subcentimeter size peripheral hypodensities in both kidneys, more prominent on the right side. These do not have typical appearance of cysts. Recommend follow-up ultrasound. 4. The gallbladder is surgically absent. The biliary tree is not dilated. 5. Small bowel loops are fluid filled and upper normal diameter. There is no true bowel obstruction. No free air. No abscess. No ascites. RADIATION DOSE DELIVERED: 1,479.19mGy.cm Total DLP DATA REPOSITORY: All CT scans at this facility are submitted to the National Radiology Data Registry (NRDR) Dose Index Registry (DIR) with the [employer] (A[employer]). RADIATION OPTIMIZATION: All CT scans at this facility use at least one of these dose optimization te chniques: automated exposure control; mA and/or kV adjustment per patient size (includes targeted exa ms where dose is matched to clinical indication); or iterative reconstruction.
[2021-02-11 13:40] LABS: COVID-19 PCR Negative (Negative)
[2021-02-11 13:43] LABS: Folate 15.7 ng/mL (8.6-20.0); Vitamin B12 > 2000 pg/mL (193-986)
[2021-02-11] MEDS: Omnipaque 350 MG/ML 100 ML BTL IJ (14:27)
[2021-02-11] MEDS: Normal Saline - Diluent 50 ML VIAL IV (14:28)
[2021-02-11] MEDS: Normal Saline Flush 10 ML SYR IVP ×3 (14:28→22:36)
--- NOTE | 2021-02-11 15:20 | DI.VRAD_ITS ---
PROCEDURE INFORMATION: Exam: CTA Chest With Contrast Exam date and time: 02/11/2021 2:33 PM Age: 45 years old Clinical indication: Other: Weakness, wbc 0.6, elevated d-dimer TECHNIQUE: Imaging protocol: Computed tomographic angiography of the chest with contrast. 3D rendering (Not supervised by radiologist): MIP and/or 3D reconstructed images were created by the technologist. Radiation optimization: All CT scans at this facility use at least one of these dose optimization techniques: automated exposure control; mA and/or kV adjustment per patient size (includes targeted exams where dose is matched to clinical indication); or iterative reconstruction. Contrast material: OMNIPAQUE 350; Contrast volume: 100 ml; Contrast route: INTRAVENOUS (IV); COMPARISON: CTA THORAX 11/04/2017 9:49 AM FINDINGS: Pulmonary arteries: No evidence of pulmonary embolus to the segmental level. Aorta: No aneurysm of the aorta. No dissection of the aorta. Lungs: 5 mm pulmonary nodule in the right middle lobe. Series 6, image 272. 6 mm pulmonary nodule series 6, image 275. 4.5 mm pleural based nodule right middle lobe image 311.. Pleural spaces: See Lungs finding. Heart: Unremarkable. No cardiomegaly. No pericardial effusion. Lymph nodes: Unremarkable. No enlarged lymph nodes. Bones/joints: Unremarkable. No acute fracture. Soft tissues: Unremarkable. IMPRESSION: 1. No evidence of pulmonary embolus to the segmental level. 2. No aneurysm of the aorta. 3. No dissection of the aorta. 4. 5 mm pulmonary nodule in the right middle lobe. Series 6, image 272. 6 mm pulmonary nodule series 6, image 275. 4.5 mm pleural based nodule right middle lobe image 311.. PROCEDURE INFORMATION: Exam: CT Abdomen And Pelvis With Contrast Exam date and time: 02/11/2021 2:33 PM Age: 45 years old Clinical indication: Other: Weakness, wbc 0.6, elevated d-dimer TECHNIQUE: Imaging protocol: Computed tomography of the abdomen and pelvis with contrast. 3D rendering (Not supervised by radiologist): MIP and/or 3D reconstructed images were created by the technologist. Radiation optimization: All CT scans at this facility use at least one of these dose optimization techniques: automated exposure control; mA and/or kV adjustment per patient size (includes targeted exams where dose is matched to clinical indication); or iterative reconstruction. Contrast material: OMNIPAQUE 350; Contrast volume: 100 ml; Contrast route: INTRAVENOUS (IV); COMPARISON: CTA THORAX 11/04/2017 9:49 AM FINDINGS: Liver: Normal. No mass. Gallbladder and bile ducts: Cholecystectomy Pancreas: Normal. No ductal dilation. Spleen: 11 mm low-attenuation area in the medial spleen. Series 12, image 20. Measures 31 Hounsfield units. Not a simple cyst No splenomegaly. Adrenal glands: Normal. No mass. Kidneys and ureters: Multiple small low-attenuation areas in both kidneys. Some of these measure more than 20 Hounsfield units and are not simple cysts There is no evidence of renal or ureteral calcifications. Stomach and bowel: Unremarkable. No obstruction. No mucosal thickening. Appendix: Normal appendix Intraperitoneal space: Unremarkable. No free air. No significant fluid collection. Vasculature: Unremarkable. No abdominal aortic aneurysm. Lymph nodes: Unremarkable. No enlarged lymph nodes. Urinary bladder: Unremarkable as visualized. Reproductive: Unremarkable as visualized. Bones/joints: Unremarkable. No acute fracture. Soft tissues: Unremarkable. IMPRESSION: 11 mm low-attenuation area in the medial spleen. Series 12, image 20. Measures 31 Hounsfield units. Not a simple cyst . Differential includes infection, hemangioma, lymphoma, leukemia, malignancy Multiple small low-attenuation areas in both kidneys. Some of these measure more than 20 Hounsfield units and are not simple cysts Dictated and Authenticated by: Felipe Gimenez MD. Ordering:YADIEL Leiva MD
--- NOTE | 2021-02-11 16:12 | W.PM.HP.N ---
Date of service: 02/11/21 Time of Service: 16:13 Assessment and Plan Assessment and plan (1) Pancytopenia: Status: Acute Assessment and plan: No signs/symptoms of infectious process but tick-born infectious lab are pending. No h/o noted tick over the last year. Concerns for myeloid neoplastic disorder. Markedly elevated B12 and splenic lesion compatable with leukemia Will discuss findings of CTA chest/abd/pelvis with [facility] heme-onc. (2) Headache: Status: Acute Assessment and plan: Has intermittent headaches, but current headache is different in location and quality. MRI head ordered. Toradol 30mg IV once. PRN if helpful. Tylenol prn. He would like to avoid narcotics if possible. History of Present Illness History of Present Illness Chief Complaint: Headache, blurry vision, weakness Narrative: This is a 45 yo male w/o any significant PMH that presented initially to the ED the day before this admission then again today. He has had several days of a headache that is constant, located in the occiput and radiates to the neck. Also c/o intermittent blurred vision at the periphery of his visual zaman. He endorses global sense of weakness and at times has felt like he might pass out but has not. NO vertigo. He denies any SOA, CP, cough, F/C. 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 Neurosurgery at [facility] contacted and did not feel this would cause his current symptomology but would like him to f/u as an outpt. He was found to be pancytopenic, including neutropenia. His D-dimer was elevated above the detection limits, COVID negative, Electroyles normal, CRP normal. B12 >2000 CTA chest/abd pelvis was negative for pulmonary embolism, positive for a RML 5 mm pulmnonary nodule, 11 mm low-attentuation area in the medial speen, multiple small low-attenuation areas in both kidneys. Pending are tests for anaplasma, babesia and Lyme. [place] screen was negative. Of note, the last labs that are available for comparison were drom May 2019. Dr Curry contacted Dr Ferrer, Heme/Onc physician at [facility] as well as Dr Noble, pathologist at [facility]. A peripheral smear was ordered. Concerns are infectious vs a myeloid neoplastic disorder. Review of Systems All systems reviewed & are unremarkable except as noted in HPI and below PFSH Medical History Obstructive sleep apnea Surgical History History of hernia repair History of tonsillectomy Hx of cholecystectomy Social History Smoking/Tobacco Use Status: Former Tobacco Use Smoking risk assessment performed?: Yes Alcohol Intake: current Alcohol Intake frequency: a few times a month Drug use: Never Substance use type: does not use Do you feel safe at home: Yes Do you feel safe in your relationship?: Yes Meds Home Medications and Allergies Allergies Allergy/AdvReac Type Severity Reaction Status Date / Time ANIMALS Allergy Intermediate Uncoded 02/11/21 10:23 Home Medications Medication Instructions Recorded Confirmed Type acetaminophen [Tylenol] 1,000 mg PO PRN 01/28/17 02/11/21 History loratadine [Claritin] 10 mg PO PRN tab-cap 07/01/17 02/11/21 History Exam Const General: cooperative, no acute distress and well developed Nutritional Appearance: average body habitus Orientation: alert and oriented x3 HENMT Head: normocephalic and atraumatic Eyes Conjunctivae: conjunctival abnormality bilaterally (mildly pale) Sclera: sclerae normal Pupils: PERRL Neck Neck: full ROM Resp Effort & Inspection: normal respiratory effort Auscultation: clear to auscultation bilaterally Cardio Rate: regular rate Rhythm: regular rhythm Heart Sounds: S1 normal and S2 normal GI Palpation: soft and nontender Skin General skin exam: no rashes or lesions noted Neuro General: no meningeal signs and no focal motor deficits Cranial Nerves: facial strength normal Cognition: normal cognition Speech: speech normal Gait: normal gait Extrem General: no pedal edema and no calf tenderness Psych Appearance: grossly normal Mental Status: mental status grossly normal Affect: normal affect Results Labs Result diagrams: 02/11/21 10:30 02/11/21 10:30 Labs: Laboratory Results - last 24 hr 02/11/21 02/11/21 02/11/21 10:30 10:30 10:30 WBC 0.64 L* RBC 3.11 L Hgb 11.1 L Hct 31.5 L MCV 101.3 H MCH 35.7 H MCHC 35.2 RDW 12.8 Plt Count 99 L MPV 9.6 Immature Gran % 0.0 Neutrophils % 9.0 Lymphocytes % 83.0 Atypical Lymphs % 3 Monocytes % 5.0 Eosinophils % 0.0 Basophils % 0.0 Nucleated RBC % 0 Absolute Neutrophils 0.06 L* Absolute Lymphocytes 0.55 L Absolute Monocytes 0.03 L Absolute Eosinophils 0.00 Absolute Basophils 0.00 RBC Morphology See below Polychromasia Present Basophilic Stippling Present D-Dimer > 7500 H Sodium 142 D Potassium 4.3 Chloride 103 Carbon Dioxide 30.7 Anion Gap 8.3 BUN 16 Creatinine 1.0 Estimated GFR/1.73 m2 >= 60.00 Glucose 144 H D Calcium 8.5 Total Bilirubin 0.4 AST 21 ALT 34 Alkaline Phosphatase 72 Lactate Dehydrogenase C-Reactive Protein Total Protein 7.4 Albumin 3.9 Vitamin B12 Folate TSH Urine Color Urine Clarity Urine pH Ur Specific [place] Urine Protein Urine Ketones Urine Blood Urine Nitrite Urine Bilirubin Urine Urobilinogen Ur Leukocyte Esterase Urine Glucose COVID-19 Source SARS-CoV-2 (PCR) Monoscreen 02/11/21 02/11/21 02/11/21 10:30 11:52 12:34 WBC RBC Hgb Hct MCV MCH MCHC RDW Plt Count MPV Immature Gran % Neutrophils % Lymphocytes % Atypical Lymphs % Monocytes % Eosinophils % Basophils % Nucleated RBC % Absolute Neutrophils Absolute Lymphocytes Absolute Monocytes Absolute Eosinophils Absolute Basophils RBC Morphology Polychromasia Basophilic Stippling D-Dimer Sodium Potassium Chloride Carbon Dioxide Anion Gap BUN Creatinine Estimated GFR/1.73 m2 Glucose Calcium Total Bilirubin AST ALT Alkaline Phosphatase Lactate Dehydrogenase C-Reactive Protein Total Protein Albumin Vitamin B12 > 2000 H Folate 15.7 TSH 1.47 Urine Color Yellow Urine Clarity Clear Urine pH 6.0 Ur Specific [place] 1.020 Urine Protein Negative Urine Ketones Negative Urine Blood Negative Urine Nitrite Negative Urine Bilirubin Negative Urine Urobilinogen 0.2 Ur Leukocyte Esterase Negative Urine Glucose Negative COVID-19 Source SARS-CoV-2 (PCR) Monoscreen Negative 02/11/21 02/11/21 02/11/21 12:34 12:34 12:35 WBC RBC Hgb Hct MCV MCH MCHC RDW Plt Count MPV Immature Gran % Neutrophils % Lymphocytes % Atypical Lymphs % Monocytes % Eosinophils % Basophils % Nucleated RBC % Absolute Neutrophils Absolute Lymphocytes Absolute Monocytes Absolute Eosinophils Absolute Basophils RBC Morphology Polychromasia Basophilic Stippling D-Dimer Sodium Potassium Chloride Carbon Dioxide Anion Gap BUN Creatinine Estimated GFR/1.73 m2 Glucose Calcium Total Bilirubin AST ALT Alkaline Phosphatase Lactate Dehydrogenase 189 C-Reactive Protein 0.16 Total Protein Albumin Vitamin B12 Folate TSH Urine Color Urine Clarity Urine pH Ur Specific [place] Urine Protein Urine Ketones Urine Blood Urine Nitrite Urine Bilirubin Urine Urobilinogen Ur Leukocyte Esterase Urine Glucose COVID-19 Source Nasal/nares SARS-CoV-2 (PCR) Negative Monoscreen Last Vital Signs Temp 37.5 C 02/11/21 15:54 Pulse 67 02/11/21 15:54 Resp 15 02/11/21 15:54 BP 122/80 02/11/21 15:54 Pulse Ox 99 02/11/21 15:54 COVID-19 Screening Have you, or household traveled for leisure in last 14 days?: No Had IN PERSON contact w/suspected or confirmed C-19 person: No
[2021-02-11] MEDS: Ketorolac 30 MG/ML VIAL IVP (17:02)
[2021-02-11] MEDS: Acetaminophen 325 MG TAB 650 MG PO (22:35)
--- NOTE | 2021-02-12 | DI.MRI_ITS ---
EXAM: MR BRAIN WO/W CLINICAL HISTORY: Headache, possible mets on CT abd/pelvis TECHNIQUE: Multiplanar multisequence MRI of the brain was performed. Both noninfused and contrast i nfused sequences were performed. IV Contrast injected was 18 cc Dotarem. COMPARISON: CT CT HEAD WO from 02/10/2021 FINDINGS: CEREBRAL PARENCHYMA: There is no evidence of intracranial hemorrhage. Ventricular size is normal. The recently described probable colloid cyst in the midline at the level of the foramen on [place]ro is actual less evident on the MRI scan, not exhibiting typical T1 bright signal. There is also no ring enhancing lesion at this level. However, there is a significant abnormal finding in the medial aspec t of the left occipital lobe in the medial occipital temporal gyrus which exhibits increased signal o n T2 and FLAIR as well as increased signal on diffusion imaging. This does not exhibit abnormal enha ncement following contrast injection. There is also a tiny focus of increased signal on diffusion im aging in the adjacent posterior aspect-pulvinar of the left thalamus, also exhibiting bright signal o n diffusion imaging. There is no significant focal signal abnormality in the cerebellar hemispheres nor within the regina an d midbrain. There is no abnormal signal abnormality in the periventricular white matter. There are no ring enhancing lesions in the brain PITUITARY GLAND: No mass nor parasellar abnormality. No obvious abnormality in the cavernous sinuses. FLOW VOIDS: Expected flow voids are noted. No evidence of obvious aneurysm. No obvious vascular mal formation. PARANASAL SINUSES: The visualized paranasal sinuses appear unremarkable. ORBITS: No obvious abnormal findings. IMPRESSION: 1. Main finding here is a strip of abnormal signal in the left occipitotemporal gyrus, not exhibiting enhancement but exhibiting significant signal abnormality on diffusion imaging as well as convention al sequences. Also tiny nearby focus of signal abnormality also noted in the posterior left regina. M ain considerations are for inflammatory versus ischemic. Cannot completely exclude neoplasm despite absence of enhancement. Question immunocompromised patient. 2. The previously described dense lesion seen at the level of the foramen of Monro on the recent 02/01 CT scan is less evident on the MRI study. 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 There is no asymmetric enlargement of the frontal horns of the lateral ventricles. This finding can be followed with repeat noninfused CT scan after appropriate clinical interval. Findings called by myself to the hospitalist following completion of the study Friday for 02/12/2021. DATA REPOSITORY:
--- NOTE | 2021-02-12 00:34 | W.PM.PROGNOT ---
Date of Service Date of service: 02/12/21 Time of Service: 00:34 Assessment and Plan Assessment and plan (1) Headache: Status: Acute Assessment and plan: see HPI Subjective Subjective Interval history since last seen: Called because of worsening headache, and fever. Case reviewed. Findings of note for pancytopenia and infectious w/u negative heretofore. Reports more or less chronic CARCAMO, but different in quality past few days, and progressively more intense. Reports CARCAMO is in back of head, with associated photophobia and some blurry vision. On exam temp 38.9, some pain with passive neck flexion though no maia stiffness; alert, pleasant and moves all 4s. A/P:Concern for ENTERTAINMENT USHER infection. I have asked ER physician to perform LP. Will update when results in. Exam Narrative Exam Narrative: see HPI Objective Last Vital Signs Temp 38.9 C H 02/11/21 23:40 Pulse 104 H 02/11/21 23:40 Resp 17 02/11/21 23:40 BP 106/69 02/11/21 23:40 Pulse Ox 97 02/11/21 23:40 Laboratory Results - last 24 hr 02/11/21 02/11/21 02/11/21 10:30 10:30 10:30 WBC 0.64 L* RBC 3.11 L Hgb 11.1 L Hct 31.5 L MCV 101.3 H MCH 35.7 H MCHC 35.2 RDW 12.8 Plt Count 99 L MPV 9.6 Immature Gran % 0.0 Neutrophils % 9.0 Lymphocytes % 83.0 Atypical Lymphs % 3 Monocytes % 5.0 Eosinophils % 0.0 Basophils % 0.0 Nucleated RBC % 0 Absolute Neutrophils 0.06 L* Absolute Lymphocytes 0.55 L Absolute Monocytes 0.03 L Absolute Eosinophils 0.00 Absolute Basophils 0.00 RBC Morphology See below Polychromasia Present Basophilic Stippling Present D-Dimer > 7500 H Sodium 142 D Potassium 4.3 Chloride 103 Carbon Dioxide 30.7 Anion Gap 8.3 BUN 16 Creatinine 1.0 Estimated GFR/1.73 m2 >= 60.00 Glucose 144 H D Calcium 8.5 Total Bilirubin 0.4 AST 21 ALT 34 Alkaline Phosphatase 72 Lactate Dehydrogenase C-Reactive Protein Total Protein 7.4 Albumin 3.9 Vitamin B12 Folate TSH Urine Color Urine Clarity Urine pH Ur Specific [place] Urine Protein Urine Ketones Urine Blood Urine Nitrite Urine Bilirubin Urine Urobilinogen Ur Leukocyte Esterase Urine Glucose COVID-19 Source SARS-CoV-2 (PCR) Monoscreen 02/11/21 02/11/21 02/11/21 10:30 11:52 12:34 WBC RBC Hgb Hct MCV MCH MCHC RDW Plt Count MPV Immature Gran % Neutrophils % Lymphocytes % Atypical Lymphs % Monocytes % Eosinophils % Basophils % Nucleated RBC % Absolute Neutrophils Absolute Lymphocytes Absolute Monocytes Absolute Eosinophils Absolute Basophils RBC Morphology Polychromasia Basophilic Stippling D-Dimer Sodium Potassium Chloride Carbon Dioxide Anion Gap BUN Creatinine Estimated GFR/1.73 m2 Glucose Calcium Total Bilirubin AST ALT Alkaline Phosphatase Lactate Dehydrogenase C-Reactive Protein Total Protein Albumin Vitamin B12 > 2000 H Folate 15.7 TSH 1.47 Urine Color Yellow Urine Clarity Clear Urine pH 6.0 Ur Specific [place] 1.020 Urine Protein Negative Urine Ketones Negative Urine Blood Negative Urine Nitrite Negative Urine Bilirubin Negative Urine Urobilinogen 0.2 Ur Leukocyte Esterase Negative Urine Glucose Negative COVID-19 Source SARS-CoV-2 (PCR) Monoscreen Negative 02/11/21 02/11/21 02/11/21 12:34 12:34 12:35 WBC RBC Hgb Hct MCV MCH MCHC RDW Plt Count MPV Immature Gran % Neutrophils % Lymphocytes % Atypical Lymphs % Monocytes % Eosinophils % Basophils % Nucleated RBC % Absolute Neutrophils Absolute Lymphocytes Absolute Monocytes Absolute Eosinophils Absolute Basophils RBC Morphology Polychromasia Basophilic Stippling D-Dimer Sodium Potassium Chloride Carbon Dioxide Anion Gap BUN Creatinine Estimated GFR/1.73 m2 Glucose Calcium Total Bilirubin AST ALT Alkaline Phosphatase Lactate Dehydrogenase 189 C-Reactive Protein 0.16 Total Protein Albumin Vitamin B12 Folate TSH Urine Color Urine Clarity Urine pH Ur Specific [place] Urine Protein Urine Ketones Urine Blood Urine Nitrite Urine Bilirubin Urine Urobilinogen Ur Leukocyte Esterase Urine Glucose COVID-19 Source Nasal/nares SARS-CoV-2 (PCR) Negative Monoscreen
--- NOTE | 2021-02-12 01:09 | W.ED.PROC ---
Date of service: 02/12/21 Time of Service: 00:30 Procedures Lumbar Puncture Time Out Performed: Yes Patient Position: left lateral decubitus Skin Prep: Povidone-Iodine 1% Local Anesthetic: Lidocaine 1% Amount of anesthesia used (mL): 2.5 Spinal Needle Gauge: 22G Complications: Need to have other Practitoner Attempt and unable to obtain CSF Medical Decision Making Asked to perform LP by hospitalist, Dr. Jorge. Discussed procedure with patient and consented after going over risk and benefit. Procedure unsuccessful with no CSF obtained after 3 attempts. Procedure aborted and will have anesthesia come in an attempt LP.
[2021-02-12 02:55] LABS: Glucose (CSF) 61 mg/dL (40-70); Total Protein (CSF) 40 mg/dL (15-45)
[2021-02-12 03:38] LABS: Clarity Clear; RBC 13 /mm3 (0-5); Tube # 4; WBC 5 /uL (0-5); Xanthochromia Absent
[2021-02-12 03:43] LABS: RBC Tube#1 CSF 49 /mm3 (0-5)
[2021-02-12 06:20] VITALS: BP 130/73; PULSE 86; RESP 16; TEMP 36.8; O2SAT 95
[2021-02-12] MEDS: Normal Saline Flush 10 ML SYR IVP ×4 (06:49→23:16)
[2021-02-12] MEDS: CEFEPIME 2 GM in Normal Saline 100 ML IVPB ×3 (06:50→23:16)
[2021-02-12 07:05] LABS: MCH 35.2 pg (27.0-33.0); MCHC 35.7 % (32.0-36.0); MCV 98.6 fL (80-95); MPV 9.9 fL (8.0-11.0); Nucleated RBC 0 %; Platelet Count 95 10^3/uL (130-400); RBC 2.84 10^6/uL (4.36-5.78); RDW 12.2 % (11.8-14.1); RDW-SD 44.1 fL
[2021-02-12 07:37] VITALS: BP 113/73; PULSE 83; RESP 18; TEMP 36.1; O2SAT 96
[2021-02-12 07:53] LABS: WBC 0.71 10^3/uL (4.4-10.8)
[2021-02-12 07:54] LABS: Bands % 1
[2021-02-12 07:55] LABS: Absolute Lymphocyte Count 0.58 10^3/uL (1.2-3.4); Absolute Monocyte Count 0.04 10^3/uL (0.1-0.8); Atypical Lymphocytes % 34
[2021-02-12 07:56] LABS: Absolute Neutrophil Count 0.08 10^3/uL (1.2-6.7)
[2021-02-12 07:58] LABS: Diff Comment Manual Differential; RBC Morphology Normal
--- NOTE | 2021-02-12 09:51 | INITIAL_ITS ---
- If Service Date Differs Date of service: 02/12/21 Time of Service: 09:51 Care Management Initial Assess REASON FOR HOSPITALIZATION:: Pancytopenia PAST MEDICAL HISTORY/PAST SURGICAL HISTORY:: Medical History . Obstructive sleep apnea. Surgical History . History of hernia repair. History of tonsillectomy. Hx of cholecystectomy PREVIOUS FUNCTIONAL STATUS/SOCIAL/FAMILY SUPPORTS:: Philippe lives in [place], [place] with his Shivani and 19 year old daughter. 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 Philippe is independent at baseline and receives no community services. CURRENT FUNCTIONAL STATUS:: Philippe was lying in bed when CM met with him. He was agreeable to conversation but was in obvious pain. Philippe stated that he has had this headache for about 3 days and that it is much worse than his headaches usually are. His room is being kept quiet, with shades drawn to reduce stimuli. ADVANCE DIRECTIVES:: none on file Has patient been provided with info about the portal/API?: Yes Did the patient sign up for the portal?: No CODE STATUS:: Full Code INSURANCE COVERAGE / FINANCIAL ISSUES:: Medicaid CURRENT HOME/COMMUNITY SERVICES/EQUIPMENT:: none PRIMARY CARE PHYSICIAN:: PCP is through [facility] but is not sure who his actual provider is. POTENTIAL DISCHARGE NEEDS:: Establish with a new PCP PATIENT/FAMILY EDUCATION NEEDS:: Review of discharge instructions, follow up plan, Limitations, Ask Me Three TRANSPORTATION:: via private vehicle with family PLAN:: Philippe's discharge plan is unclear at this time. He may require transfer to a tertiary care facility for further diagnostic workup. When he is discharged home he will follow up with his community providers. CM will continue to support patient, family and dischare planning needs.
[2021-02-12] MEDS: Ketorolac 30 MG/ML VIAL IVP ×2 (11:50→19:58)
[2021-02-12] MEDS: Gadoterate meglumine 20 ML VIAL 10 ML IVP (12:46)
[2021-02-12 15:41] VITALS: BP 116/73; PULSE 77; RESP 18; TEMP 36.9; O2SAT 95
--- NOTE | 2021-02-12 16:00 | CHAPLAIN ---
Galen was very pleasant, resting in bed, but not fully comfortable. He was very pleasant and told me that he lives in [place], after growing up in [place]. According to Care Management notes, he is supported by his and daughter, and usually works daily. I explained my role and offered support.
--- NOTE | 2021-02-12 16:33 | PHA.REVIEW ---
Pharmacy Admission Review - Admission Clinical Review (Last Reviewed 02/11/21 @ 16:31 by Richard Jimenez MD) Pancytopenia (Acute) Headache (Acute) Dizziness (Acute) ANIMALS Allergy (Intermediate, Uncoded 02/11/21 10:23) Height 5 ft 11 in Weight 87.9 kg - Renal Dosing Renal Dosing: BUN 16 mg/dL (7-18) 02/11/21 10:30 Creatinine 1.0 mg/dL (0.70-1.30) 02/11/21 10:30 Medications needing adjustments: Reviewed (Crcl ~99 mL/min current meds okay.) - Anticoagulation Anticoagulation: Hgb 10.0 g/dL (13.5-17.5) L 02/12/21 06:40 Hct 28.0 % (40.0-50.0) L 02/12/21 06:40 Plt Count 95 10^3/uL (130-400) L 02/12/21 06:40 Creatinine 1.0 mg/dL (0.70-1.30) 02/11/21 10:30 DVT Prohphylaxis: Reviewed (SCDs ordered, no meds (pancytopenia)) - Opiate Usage Evaluate Pain Scale/Pains Meds: N/A - Relevant Labs Sodium 142 mmol/L (136-145) D 02/11/21 10:30 Potassium 4.3 mmol/L (3.5-5.1) 02/11/21 10:30 Chloride 103 mmol/L (98-107) 02/11/21 10:30 C-Reactive Protein 0.16 mg/dL (0.0-0.3) 02/11/21 12:34 Electrolytes, C-Reactive P, ESR: Reviewed - DM Control DM Control: Glucose 144 mg/dL (74-106) H D 02/11/21 10:30 Insulin Dosing: N/A (BG elevated on admission) - Heart Failure/NV EF%, CHACE's, B-Blockers, Diuretics: N/A - BP Control BP Control: Blood Pressure 116/73 Blood Pressure 113/73 Blood Pressure 130/73 If elevated: N/A - Qtc Review If Elevated: N/A - IV to PO Switch IV Medications: Reviewed - Home Meds Home Med List reviewed: Reviewed Relevent Home Meds Not ordered & why?: both home meds are ordered - Current meds Current Medication Order Review: Intervened (Provider aware of drug-disease interaction with ketorolac and pancytopenia, watch for signs/symptoms of bleeding. Discontinued DI meds, already had been given.) - Comments Comments/Follow Ups: Continue to watch VS, labs and for med changes.
--- NOTE | 2021-02-12 16:45 | W.PM.PROGNOT ---
Date of Service Date of service: 02/12/21 Time of Service: 16:46 Assessment and Plan Assessment and plan (1) Pancytopenia: Status: Acute Assessment and plan: New findings; last labs in chart/available were in 05/2019. Planning bone [place] [facility] (2) DVT prophylaxis: Status: Acute Assessment and plan: No anticoagulants; planning bone marrow bx. (3) Discharge planning issues: Status: Acute Assessment and plan: Spoke with Dr Arvizu at [facility]c. She will have inpatient team contact us tomorrow for transfer. (4) Neutropenic fever: Status: Acute Assessment and plan: He presented to the ED with c/o CARCAMO, hazy peripheral vision intermittently and presyncope intermittently. CT head gave no indication as to the cause of his symtpoms LP was unremarkable; gram stain showed no organisms. MRI head was concerning for findings of a strip of abnormal signal in the left occipitotemporal gyrus, not exhibiting enhancement but exhibiting significant signal abnormality on diffusion imaging as well as conventional sequences. Also tiny nearby focus of signal abnormality also noted in the posterior left regina. Main considerations are for inflammatory versus ischemic. Cannot completely exclude neoplasm despite absence of enhancement. IV Acyclovir initiated. HSV PCR and tick-borne panel pending. Subjective Subjective Patient reports: denies shortness of breath Interval history since last seen: Ongoing CARCAMO; some mild improvement after Toradol and acetaminophen No N/V. No fever today. Tm of 38.9 last PM Exam Const General: cooperative and no acute distress Nutritional Appearance: average body habitus Orientation: alert and oriented x3 Eyes Sclera: sclerae normal Pupils: PERRL Neck Neck: full ROM Resp Effort & Inspection: normal respiratory effort Auscultation: clear to auscultation bilaterally Cardio Rate: regular rate Rhythm: regular rhythm Heart Sounds: S1 normal and S2 normal GI Palpation: soft and nontender Skin General skin exam: no rashes or lesions noted Neuro General: no focal motor deficits Cranial Nerves: no nystagmus and facial strength normal Cognition: normal cognition Speech: speech normal Gait: normal gait Extrem General: no pedal edema and no calf tenderness Psych Appearance: grossly normal Speech and Movement: speech and movement normal Mood: congruent mood Affect: normal affect Objective Last Vital Signs Temp 36.9 C 02/12/21 15:41 Pulse 77 02/12/21 15:41 Resp 18 02/12/21 15:41 BP 116/73 02/12/21 15:41 Pulse Ox 95 02/12/21 15:41 Laboratory Results - last 24 hr 02/12/21 02/12/21 02/12/21 02:25 02:25 02:25 WBC RBC Hgb Hct MCV MCH MCHC RDW Plt Count MPV Immature Gran % Neutrophils % Band Neutrophils % Lymphocytes % Atypical Lymphs % Monocytes % Eosinophils % Basophils % Nucleated RBC % Absolute Neutrophils Absolute Lymphocytes Absolute Monocytes Absolute Eosinophils Absolute Basophils RBC Morphology Xanthochromia Absent CSF Tube Number 4 CSF Color Colorless CSF Clarity Clear CSF WBC 5 CSF RBC 13 H CSF RBC (1) 49 H CSF Diff Comment CSF Glucose 61 CSF Total Protein 40 Hep Bs Antigen Hep Bs Antibody Hep Bs Antibody, Quant Hep B Core Total Ab Hepatitis C Antibody Herpes Simplex Source HSV I DNA PCR HSV II DNA PCR HIV 1&2 Antibody Rapid 02/12/21 02/12/21 02/12/21 06:40 08:12 Unknown WBC 0.71 L* RBC 2.84 L Hgb 10.0 L Hct 28.0 L MCV 98.6 H MCH 35.2 H MCHC 35.7 RDW 12.2 Plt Count 95 L MPV 9.9 Immature Gran % 0.0 Neutrophils % 10.0 Band Neutrophils % 1 Lymphocytes % 48.0 Atypical Lymphs % 34 Monocytes % 6.0 Eosinophils % 0.0 Basophils % 0.0 Nucleated RBC % 0 Absolute Neutrophils 0.08 L* Absolute Lymphocytes 0.58 L Absolute Monocytes 0.04 L Absolute Eosinophils 0.00 Absolute Basophils 0.00 RBC Morphology Normal Xanthochromia CSF Tube Number CSF Color CSF Clarity CSF WBC CSF RBC CSF RBC (1) CSF Diff Comment CSF Glucose CSF Total Protein Hep Bs Antigen Hep Bs Antibody Hep Bs Antibody, Quant Hep B Core Total Ab Hepatitis C Antibody Herpes Simplex Source Cancelled HSV I DNA PCR Cancelled HSV II DNA PCR Cancelled HIV 1&2 Antibody Rapid Cancelled 02/12/21 Unknown WBC RBC Hgb Hct MCV MCH MCHC RDW Plt Count MPV Immature Gran % Neutrophils % Band Neutrophils % Lymphocytes % Atypical Lymphs % Monocytes % Eosinophils % Basophils % Nucleated RBC % Absolute Neutrophils Absolute Lymphocytes Absolute Monocytes Absolute Eosinophils Absolute Basophils RBC Morphology Xanthochromia CSF Tube Number CSF Color CSF Clarity CSF WBC CSF RBC CSF RBC (1) CSF Diff Comment CSF Glucose CSF Total Protein Hep Bs Antigen Cancelled Hep Bs Antibody Cancelled Hep Bs Antibody, Quant Cancelled Hep B Core Total Ab Cancelled Hepatitis C Antibody Cancelled Herpes Simplex Source HSV I DNA PCR HSV II DNA PCR HIV 1&2 Antibody Rapid
[2021-02-12 20:04] VITALS: BP 138/76; PULSE 83; RESP 14; TEMP 37.6; O2SAT 96
[2021-02-12 23:56] LABS: HSV 1 DNA Result Negative (Negative); HSV 2 DNA Result Negative (Negative)
[2021-02-13] MEDS: CEFEPIME 2 GM in Normal Saline 100 ML IVPB ×2 (08:18→16:24)
[2021-02-13] MEDS: Normal Saline Flush 10 ML SYR IVP ×2 (08:19→13:08)
[2021-02-13] MEDS: Mylanta Suspension 30 ML CUP PO (08:19)
[2021-02-13] MEDS: Ketorolac 30 MG/ML VIAL IVP (08:19)
[2021-02-13 08:32] LABS: Absolute Monocyte Count 0.02 10^3/uL (0.1-0.8); HGB 10.5 g/dL (13.5-17.5); MCH 35.6 pg (27.0-33.0); MCHC 36.2 % (32.0-36.0); MCV 98.3 fL (80-95); MPV 9.4 fL (8.0-11.0); Platelet Count 91 10^3/uL (130-400); RBC 2.95 10^6/uL (4.36-5.78); RDW 12.4 % (11.8-14.1); RDW-SD 44.5 fL
[2021-02-13 08:44] VITALS: BP 115/75; PULSE 74; RESP 17; TEMP 36.9; O2SAT 99
[2021-02-13 08:53] LABS: Anion Gap 7.7 mmol/L (3-11); BUN 15 mg/dL (7-18); C-Reactive Protein 0.21 mg/dL (0.0-0.3); CO2 28.3 mmol/L (21.0-32.0); Calcium 9.1 mg/dL (8.5-10.1); Chloride 105 mmol/L (98-107); Glucose 107 mg/dL (74-106); Magnesium 2.1 mg/dL (1.8-2.4); Potassium 4.5 mmol/L (3.5-5.1); Sodium 141 mmol/L (136-145)
[2021-02-13 09:04] LABS: WBC 0.76 10^3/uL (4.4-10.8)
[2021-02-13 09:05] LABS: Absolute Lymphocyte Count 0.68 10^3/uL (1.2-3.4); Absolute Neutrophil Count 0.06 10^3/uL (1.2-6.7)
[2021-02-13 09:06] LABS: Atypical Lymphocytes % 5; Diff Comment Manual Differential; Nucleated RBC 1 %; RBC Morphology Normal
[2021-02-13 10:13] LABS: Hepatitis A Antibody IgM Negative (Negative); Hepatitis B Core Antibody Negative (Negative); Hepatitis B surface Ag Negative (Negative); Hepatitis C Ab w Rflx HCV PCR Negative (Negative)
--- NOTE | 2021-02-13 10:24 | W.NUTRFU ---
Date of service: 02/13/21 Time of Service: 10:24 Nutritional Follow up NOTE: 45 year old male admitted with neutrophenic fever. Following neutropenic diet with adeqeuate intake to meet baseline weight. Not currently at nutritional risk. Will continue to follow Time Spent in Nutritional Counseling and Treatment: 0
[2021-02-13 11:13] LABS: Lyme Ab w Rflx to Lyme Confirm Negative (Negative)
--- NOTE | 2021-02-13 11:47 | W.PM.DS.N ---
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 The patient's workup included - a negative noncontrast CT of the head with the exception of a likely colloid cyst at the foramen of Monro -a negative CXR -negative blood cultures -he does have atypical lymphocytes on his peripheral smear (nucleus looks abnormal; no further characterization available). -a negative UA -a CT of chest/abdomen/pelvis with showing nodular densities in the right lung (some of them seen in 2018), hypodensities in both kidneys which looked atypical for cysts as well as fluid-filled bowel, c/w diarrhea. -a negative lumbar puncture on 02/12/21 (5 WBC, 13 RBC, Glucose of 61, Total protein of 40; fluid was clear/colorless); cultures with NGTD, negative cytospin concentrated smear. HSV PCR in LP was negative. -MRI brain w/w/o contrast with a strip of abnormal signal in left occipitotemporal gyrus (nonenhancing) as well as posterior left regina: inflammatory vs ischemic. A neoplasm could not be ruled out. Colloid cyst at matthew of Monro was again seen. -negative monoscreen. -negative hepatitis studies. -negative COVID-19 PCR on 02/11/21. -additional studies still pending: tick studies, HIV, SPEP/serum light chains, stool studies, cryptococcus CSF, peripheral smear send-out. The patient did spike a fever on 02/11/21. He was initiated on cefepime and, on 02/12/21, based on the MRI read, IV acyclovir was added. Tmax in the last 24 hrs is 37.6. The patient continues to have a posterior headache (started before the LP) and does not feel better. Blood in stool was reported this morning. Upon talking to the patient, this does not appear to be clinically very significant as the patient only noted it on his toilet paper when wiping. We have not seen diarrhea from this patient since admission, but he did have it prior to admission and stool studies are ordered (uncollected at the time of writing this discharge summary). Case was discussed with [facility]: it is felt the patient could have acute leukemia and would benefit from a transfer to a tertiary care facility for further evaluation (including but not limited to bone marrow biopsy) and treatment (possible chemotherapy). He was accepted in transfer by Dr Narvaez's service. Patient is in agreement with transfer and is stable for transfer. Care for patient as well as completion of his transfer summary today took 1 hr. for list of inpatient medications, please see inpatient MAR. Home Meds and New Rx's Prescriptions: No Action acetaminophen [Tylenol] 325 MG tablet 1,000 mg PO PRN RF: 0 loratadine [Claritin] 10 MG tablet 10 mg PO PRN RF: 0 Discharge Instructions Stand Alone Forms: Nursing Discharge Form Activity:: Activity as Tolerated Diet:: neutropenic Discharge Orders Discharge Orders: Discharge Order (Routine); Ordered 02/13/21 Ordered By: Jessa Saldana DS: Summary Time Spent with Patient providing and/or coordinating discharge services: Greater than 30 minutes Status at Discharge Functional status at discharge: independent ambulation Overall status at discharge: patient is not back to baseline Mental Status: mental status grossly normal Speech and Movement: speech and movement normal Mood: congruent mood Affect: normal affect Exam Narrative Exam Narrative: General: pleasant overnight male, pale, A&Ox3, does not appear uncomfortable with light in the room, fluent speech, follows commands, appropriate HEENT: EOMI, dry MM Heart: RRR, no m/r/g Lungs: faint crackles at B bases that disappear with deep breaths Abdomen: soft, nontender, nondistended Extremities: no edema BLE's Psych Mental Status: mental status grossly normal Speech and Movement: speech and movement normal Mood: congruent mood Affect: normal affect DS: Data Vitals/I&O Vitals and I&O: Vital Signs Temperature 36.9 C 02/13/21 08:44 Temperature Source Temporal Artery Scan 02/13/21 08:44 Pulse 74 02/13/21 08:44 Pulse Rhythm Regular 02/13/21 08:27 Pulse 67 02/11/21 15:10 Respiratory Rate 17 02/13/21 08:44 Respiratory Effort 02/13/21 08:27 Respiratory Depth Normal 02/13/21 08:27 Respiratory Pattern Normal 02/13/21 08:27 Blood Pressure 115/75 02/13/21 08:44 Blood Pressure Mean 85 02/11/21 14:15 Blood Pressure Position Sitting 02/11/21 10:20 Pulse Oximetry 99 02/13/21 08:44 Oxygen Delivery Method Room Air 02/13/21 08:44 Oxygen Flow Rate 0 02/13/21 08:44 Pain Level 8 02/13/21 08:44 Comment 02/12/21 20:04 Intake & Output 02/12/21 02/12/21 02/13/21 11:59 23:59 11:59 Intake Total 340 / 2140 1700 / 2140 970 / 970 Balance 340 / 2140 1700 / 2140 970 / 970 Intake: IV 100 / 560 360 / 560 350 / 350 Oral 240 / 1580 1340 / 1580 620 / 620 Other: Urine Color Yellow Urine Appearance Clear Clear Clear Urine Odor Normal Comment reports voiding without difficulty Stool Size Small Stool Characteristics Formed Hard Brown Bloody Voiding Methods Toilet Toilet Data Completed and Pending Completed studies during hospitalization [Text1]: CT head w/o contrast 02/10/21: 1. No acute intracranial process. 2. Round hyperdense mass at the foramen of Monro most consistent with a colloid cyst. 3. No ventricular dilatation. CXR: No acute pulmonary findings. CT chest/abdomen/pelvis 02/11/21: 1. No evidence of acute pulmonary emboli nor pulmonary infarction. 2. However, there are small nodular densities in the right lung, some unchanged from November 2017 and some not previously present. Recommend follow-up CT scan in 3 months. No pleural effusions nor obvious intrathoracic adenopathy. 3. Multiple small subcentimeter size peripheral hypodensities in both kidneys, more prominent on the right side. These do not have typical appearance of cysts. Recommend follow-up ultrasound. 4. The gallbladder is surgically absent. The biliary tree is not dilated. 5. Small bowel loops are fluid filled and upper normal diameter. There is no true bowel obstruction. No free air. No abscess. No ascites. MRI brain w/w/o contrast: 1. Main finding here is a strip of abnormal signal in the left occipitotemporal gyrus, not exhibiting enhancement but exhibiting significant signal abnormality on diffusion imaging as well as conventional sequences. Also tiny nearby focus of signal abnormality also noted in the posterior left regina. Main considerations are for inflammatory versus ischemic. Cannot completely exclude neoplasm despite absence of enhancement. Question immunocompromised patient. 2. The previously described dense lesion seen at the level of the foramen of Monro on the recent 02/10/2021 CT scan is less evident on the MRI study. It is probably a colloid cyst despite absence of typical bright T1 signal on noninfused T1 sequences. There is no asymmetric enlargement of the frontal horns of the lateral ventricles. This finding can be followed with repeat noninfused CT scan after appropriate clinical interval. Labs on day of discharge: Labs from last 24 hours 02/13/21 02/13/21 02/13/21 Unknown 08:20 08:20 WBC 0.76 L* RBC 2.95 L Hgb 10.5 L Hct 29.0 L MCV 98.3 H MCH 35.6 H MCHC 36.2 H RDW 12.4 Plt Count 91 L MPV 9.4 Immature Gran % 0.0 Neutrophils % 8.0 Lymphocytes % 84.0 Atypical Lymphs % 5 Monocytes % 3.0 Eosinophils % 0.0 Basophils % 0.0 Nucleated RBC % 1 Absolute Neutrophils 0.06 L* Absolute Lymphocytes 0.68 L Absolute Monocytes 0.02 L Absolute Eosinophils 0.00 Absolute Basophils 0.00 RBC Morphology Normal Sodium Potassium Chloride Carbon Dioxide Anion Gap BUN Creatinine Estimated GFR/1.73 m2 Glucose Calcium Magnesium C-Reactive Protein Total Protein (PEP) Pending Albumin % (PEP) Pending Dfsbp-0-Eaedxhrjk (%) Pending Xgvax-7-Gsxwkmsvc (%) Pending Beta Globulins (%) Pending Gamma Globulins (%) Pending M-Tony % Pending PEP Comment Pending CSF Cryptococcal Ag Ttr Pending CSF Cryptococcus Ag Pending Free Talmage LC, Quant Pending Free Lambda LC, Quant Pending Free Talmage/Lambda Ratio Pending Lyme Disease Antibody Cryptosporidium/Giardia Pending Hepatitis A IgM Ab Hep Bs Antigen Hep B Core Total Ab Hepatitis C Antibody HSV Source Description HSV I DNA PCR HSV II DNA PCR 02/13/21 02/12/21 02/12/21 08:20 09:11 02:25 WBC RBC Hgb Hct MCV MCH MCHC RDW Plt Count MPV Immature Gran % Neutrophils % Lymphocytes % Atypical Lymphs % Monocytes % Eosinophils % Basophils % Nucleated RBC % Absolute Neutrophils Absolute Lymphocytes Absolute Monocytes Absolute Eosinophils Absolute Basophils RBC Morphology Sodium 141 Potassium 4.5 Chloride 105 Carbon Dioxide 28.3 Anion Gap 7.7 BUN 15 Creatinine 1.0 Estimated GFR/1.73 m2 >= 60.00 Glucose 107 H Calcium 9.1 Magnesium 2.1 C-Reactive Protein 0.21 Total Protein (PEP) Albumin % (PEP) Gsqtw-9-Qjbtclzew (%) Kgxco-5-Ziaenntan (%) Beta Globulins (%) Gamma Globulins (%) M-Tony % PEP Comment CSF Cryptococcal Ag Ttr CSF Cryptococcus Ag Free Talmage LC, Quant Free Lambda LC, Quant Free Talmage/Lambda Ratio Lyme Disease Antibody Cryptosporidium/Giardia Hepatitis A IgM Ab Negative Hep Bs Antigen Negative Hep B Core Total Ab Negative Hepatitis C Antibody Negative HSV Source Description Not Applicable HSV I DNA PCR Negative HSV II DNA PCR Negative 02/11/21 12:34 WBC RBC Hgb Hct MCV MCH MCHC RDW Plt Count MPV Immature Gran % Neutrophils % Lymphocytes % Atypical Lymphs % Monocytes % Eosinophils % Basophils % Nucleated RBC % Absolute Neutrophils Absolute Lymphocytes Absolute Monocytes Absolute Eosinophils Absolute Basophils RBC Morphology Sodium Potassium Chloride Carbon Dioxide Anion Gap BUN Creatinine Estimated GFR/1.73 m2 Glucose Calcium Magnesium C-Reactive Protein Total Protein (PEP) Albumin % (PEP) Whjid-1-Fhuibpfrh (%) Ahmdq-5-Rminngnip (%) Beta Globulins (%) Gamma Globulins (%) M-Tony % PEP Comment CSF Cryptococcal Ag Ttr CSF Cryptococcus Ag Free Talmage LC, Quant Free Lambda LC, Quant Free Talmage/Lambda Ratio Lyme Disease Antibody Negative Cryptosporidium/Giardia Hepatitis A IgM Ab Hep Bs Antigen Hep B Core Total Ab Hepatitis C Antibody HSV Source Description HSV I DNA PCR HSV II DNA PCR Preliminary micro results at discharge 02/12/21 02:25 Body Fluid Culture - Preliminary Cerebrospinal Fluid 02/11/21 12:34 Blood Culture - Preliminary Blood NO GROWTH 24 HOURS 02/11/21 12:05 Blood Culture - Preliminary Blood NO GROWTH 24 HOURS [facility] Medical History (Updated 02/13/21 @ 12:13 by Jessa Saldana MD) Obstructive sleep apnea Surgical History History of hernia repair History of tonsillectomy Hx of cholecystectomy Social History Smoking/Tobacco Use Status: Former Tobacco Use Smoking risk assessment performed?: Yes Alcohol Intake: current Alcohol Intake frequency: a few times a month Drug use: Never Substance use type: does not use Do you feel safe at home: Yes Do you feel safe in your relationship?: Yes
[2021-02-13] MEDS: Normal Saline 1,000 ML 125 ML IV (12:05)
[2021-02-13] MEDS: Ondansetron 4 MG/2 ML VIAL IVP (13:08)
[2021-02-13 15:45] VITALS: BP 121/80; PULSE 69; RESP 16; TEMP 36.7; O2SAT 97
[2021-02-13] MEDS: Acetaminophen 325 MG TAB 650 MG PO (17:32)
--- NOTE | 2021-02-13 18:10 | CMDISCH_ITS ---
- If Service Date Differs Date of service: 02/13/21 Time of Service: 18:10 LACE Index Scoring Tool - Questions: Length of Stay (in days): 2 Acuity (Admit via E.D.?): Yes E.D. Visits: 2 - Answers: Total Score: 7 Risk of Readmission: Low Risk Care Management Discharge Reason for Hospitalization: Pancytopenia Discharge Plan: Philippe has been accepted for transfer to [facility]. He will transport via ambulance through [facility] as soon as a bed is available. He will follow up with the providers and plan of care at that facility. Patient/Family Education Needs: Expectations, limitations, Ask Me Three Services Needed at Discharge: Transportation
[2021-02-14 10:32] LABS: Kappa Free Light Chain 1.68 mg/dL (0.33-1.94); Lambda Free Light Chain 1.37 mg/dL (0.57-2.63)
[2021-02-14 16:12] LABS: Albumin 58.8 % (55.8-66.1); Comment (See Note); Total Protein 6.4 g/dL (6.3-8.2)
[2021-02-14 20:15] LABS: Anaplasma phagocytophilum Negative (Negative); B. miyamotoi PCR Negative (Negative); Babesia divergens/MO-1 Negative (Negative); Babesia duncani Negative (Negative); Babesia microti Negative (Negative); Ehrlichia chaffeensis Negative (Negative); Ehrlichia ewingii/canis Negative (Negative); Ehrlichia muris eauclairensis Negative (Negative)
[2021-02-15 14:49] LABS: HIV 1 RNA Qualitative Undetected copies/mL (Undetected)
== END 2021-02-13 17:31 | disposition short-term general hospital (02) | DRG 835 ==
LOC: ER 14:52 → MS 15:23
PROVIDERS: General Practice; Internal Medicine; Admitting Provider Family Medicine; Emergency Provider Physician Assistant; Visit Provider Family Medicine
DX: C95.00 Acute leukemia of unspecified cell type not having achieved remission (principal); D61.818 Other pancytopenia; D70.9 Neutropenia, unspecified; G93.0 Cerebral cysts; R51.9 Headache, unspecified; H53.8 Other visual disturbances; R53.1 Weakness; R50.81 Fever presenting with conditions classified elsewhere; G47.33 Obstructive sleep apnea (adult) (pediatric); Z87.891 Personal history of nicotine dependence; R90.82 White matter disease, unspecified; K52.9 Noninfective gastroenteritis and colitis, unspecified; Z20.822 Contact with and (suspected) exposure to COVID-19; R91.8 Other nonspecific abnormal finding of lung field
CPT/HCPCS: 62270; 36415; 70553; 71275; 74177; 80048; 80053; 82945; 86704; 86709; 86803; 87040; 87340; 87529; 87536; 87635; 87798; 89050; 89051; 96361; 96374; 96375; 99220; 99232; 99233; 99239; 99285; 81003; 82607; 82746; 83615; 83735; 83883; 84157; 84165; 84443; 85025; 85379; 86140; 86308; 86618; 87070; 87205; 99225; 99354; G0378; J0131; J0133; J1885; J2405; J3490

== ENCOUNTER 2021-04-18 13:47 | Outpatient (CLI) | payer MEDICAID, SELFPAY ==
--- NOTE | 2021-04-18 13:45 | RT.EKG_ITS ---
APPROVED REPORT Exam: Resting ECG Reason for Exam: Check QTC Patient Location: O HR:84 bpm ECG Measurements Heart Rate 84 AXIS IN 141 P 39 QRSd 99 QRS 4 QT 337 T 35 QTc 397 Conclusion Sinus rhythm...normal P axis, V-rate 60- 99
--- OUTSIDE RECORDS SUMMARY | 2021-04-18 13:53 | XMS_ITS ---
:1975 Author Care Team Providers Name Role Phone CYNDY Adrien AMAYA Primary Care Provider [phone] [facility] OTHER [phone] JOAN IGLESIAS MD [employer] [phone] Allergies Code Code System Name Reaction Severity Status Onset NKDA ? Medications Name Status Start Date Stop Date ? ? isosorbide mononitrate ER 30 mg Active ? Not available tablet,extended release 24 hr magnesium gluconate 27 mg magnesium (500 mg) tablet Active ? Not available Take 1 tablet every day by oral route. metoprolol succinate ER 25 mg Active ? No t available tablet,extended release 24 hr Vitamin D3 50 mcg (2,000 unit) capsule Active ? Not available Take 2 capsules every day by oral route. Problems Name Status Onset Date Source ? Dyslipidemia Active ? ? Obesity Active ? ? Gastroesophageal Reflux Disease Active ? ? Sleep Apnea Unknown ? ? Procedures None recorded. Results Lab Results Date Name Specimen Result Interpretation Description Value Range Status Address ? 06/15/2019 Ferritin, S - Ferr [phone] Final [facility] Serum or NG/mL NG/mL Hospital Lab Plasma (Internal) : [address] 06/15/2019 Vitamin B12, S - Vit B12 497.0 239.0-931 Fi nal [facility] Serum pg/mL .0 pg/mL Hospital Lab (Internal) : [address] 06/15/2019 Vitamin D, S - 25-Hydr <4.0 ? Final [place] 25-Hydroxy, oxy D2 NG/mL Hospi adelia Lab Total, Serum (Int ernal): [address] ? ? S - 25-Hydr 58 NG/mL ? Final [facility] oxy D3 Hospital L ab (Internal) : [address] ? ? S - 25-Hydr 58 NG/mL ? Final [facility] oxy D Hospital L ab Total (Internal) : [address] Past Encounters None recorded. Social History Tobacco Smoking Status Former Smoker Notes: 14, 1/2 ppd. quit 2009 Vaccine List None recorded. Plan of Care Reminders Provider Appointments None ? ? recorded. Lab None ? ? recorded. Referral None ? ? recorded. Procedures None ? ? recorded. Surgeries None ? ? recorded. Imaging None ? ? recorded. Vitals 06/15/2019 09:00AM Office 30 Height Weight BMI Blood Pressure 180.34 cm 83.01 kg 25.5 kg/m2 130/80 mm[Hg] 03/16/2019 08:30AM Office 15 Height Weight BMI Blood Pressure 180.34 cm 88.99 kg 27.4 kg/m2 119/74 mm[Hg] 01/11/2019 09:15AM New Patient 45 Height Weight BMI Blood Pressure 180.34 cm 97.89 kg 30.1 kg/m2 126/76 mm[Hg]
--- NOTE | 2021-07-19 11:45 | RT.EKG_ITS ---
APPROVED REPORT Exam: Resting ECG Reason for Exam: acute promyelocytic leukrmia in remission Patient Location: O HR:66 bpm ECG Measurements Heart Rate 66 AXIS MO 151 P 47 QRSd 109 QRS 16 QT 397 T 56 QTc 417 Conclusion Sinus rhythm...normal P axis, V-rate 60- 99 Normal Electrocardiogram
== END 2021-04-18 13:48 | disposition home or self-care (01) ==
LOC: RT 13:52
PROVIDERS: Visit Provider Internal Medicine Hematology & Oncology
DX: C92.41 Acute promyelocytic leukemia, in remission (principal)
CPT/HCPCS: 93005; 93010

== ENCOUNTER 2021-04-30 07:27 | Outpatient (CLI) | payer MEDICAID, SELFPAY ==
--- NOTE | 2021-04-30 07:30 | RT.EKG_ITS ---
APPROVED REPORT Exam: Resting ECG Reason for Exam: Check QTCs, Acute promyelocytic leuk. in re.C92.41 Patient Location: O HR:91 bpm ECG Measurements Heart Rate 91 AXIS MN 144 P 38 QRSd 96 QRS -2 QT 338 T 32 QTc 416 Conclusion Sinus rhythm...normal P axis, V-rate 60- 99
== END 2021-04-30 07:28 | disposition home or self-care (01) ==
LOC: RT 07:28
PROVIDERS: Visit Provider Internal Medicine Hematology & Oncology
DX: C92.41 Acute promyelocytic leukemia, in remission (principal)
CPT/HCPCS: 93005; 93010

== ENCOUNTER 2021-05-02 02:29 | Outpatient (RCR) | payer MEDICAID, SELFPAY ==
[2021-04-18] MEDS: Normal Saline Flush 10 ML SYR IVP (15:13)
[2021-04-18] MEDS: Heparin 500 UNITS/5 ML SYRINGE IV (15:13)
[2021-04-18 15:28] LABS: Abs Immature Grans 0.09 10^3/uL (0.0-0.06); Absolute Basophil Count 0.05 10^3/uL (0.0-0.2); Absolute Eosinophil Count 0.35 10^3/uL (0.0-0.7); Absolute Lymphocyte Count 1.58 10^3/uL (1.2-3.4); Absolute Monocyte Count 0.82 10^3/uL (0.1-0.8); Absolute Neutrophil Count 5.05 10^3/uL (1.2-6.7); Basophils % 0.6; Eosinophils % 4.4; HCT 37.3 % (40.0-50.0); HGB 12.1 g/dL (13.5-17.5); Immature Grans % 1.1; Lymphocytes % 19.9; MCH 33.6 pg (27.0-33.0); MCHC 32.4 % (32.0-36.0); MCV 103.6 fL (80-95); MPV 10.1 fL (8.0-11.0); Monocytes % 10.3; Neutrophils % 63.7; Nucleated RBC 0 %; Platelet Count 188 10^3/uL (130-400); RDW 15.2 % (11.8-14.1); RDW-SD 58.4 fL; WBC 7.94 10^3/uL (4.4-10.8)
[2021-04-18 15:38] LABS: ALT 51 U/L (16-63); AST 19 U/L (15-37); Albumin 3.4 g/dL (3.4-5.0); Alkaline Phosphatase 84 U/L (46-116); Anion Gap 8.5 mmol/L (3-11); BUN 14 mg/dL (7-18); Bilirubin, Total 0.4 mg/dL (0.2-1.0); CO2 28.5 mmol/L (21.0-32.0); CREATININE 0.9 mg/dL (0.70-1.30); Calcium 8.3 mg/dL (8.5-10.1); Chloride 106 mmol/L (98-107); Glucose 83 mg/dL (74-106); Magnesium 1.9 mg/dL (1.8-2.4); Potassium 3.9 mmol/L (3.5-5.1); Sodium 143 mmol/L (136-145); Total Protein 6.7 g/dL (6.4-8.2)
[2021-04-26] MEDS: Normal Saline Flush 10 ML SYR IVP (07:12)
[2021-04-26 07:27] LABS: Abs Immature Grans 0.14 10^3/uL (0.0-0.06); Absolute Basophil Count 0.04 10^3/uL (0.0-0.2); Absolute Eosinophil Count 0.18 10^3/uL (0.0-0.7); Absolute Lymphocyte Count 1.32 10^3/uL (1.2-3.4); Absolute Monocyte Count 0.81 10^3/uL (0.1-0.8); Absolute Neutrophil Count 5.29 10^3/uL (1.2-6.7); Basophils % 0.5; Eosinophils % 2.3; HCT 36.8 % (40.0-50.0); HGB 11.7 g/dL (13.5-17.5); Immature Grans % 1.8; MCH 32.3 pg (27.0-33.0); MCHC 31.8 % (32.0-36.0); MCV 101.7 fL (80-95); MPV 10.2 fL (8.0-11.0); Monocytes % 10.4; Nucleated RBC 0 %; RBC 3.62 10^6/uL (4.36-5.78); RDW 14.6 % (11.8-14.1); RDW-SD 54.8 fL; WBC 7.78 10^3/uL (4.4-10.8)
[2021-04-26 07:41] LABS: ALT 30 U/L (16-63); AST 19 U/L (15-37); Albumin 3.1 g/dL (3.4-5.0); Alkaline Phosphatase 116 U/L (46-116); Anion Gap 7.6 mmol/L (3-11); BUN 13 mg/dL (7-18); Bilirubin, Total 0.3 mg/dL (0.2-1.0); CO2 28.4 mmol/L (21.0-32.0); CREATININE 0.8 mg/dL (0.70-1.30); Calcium 8.5 mg/dL (8.5-10.1); Chloride 106 mmol/L (98-107); Glucose 192 mg/dL (74-106); Magnesium 1.6 mg/dL (1.8-2.4); Potassium 3.9 mmol/L (3.5-5.1); Sodium 142 mmol/L (136-145); Total Protein 6.5 g/dL (6.4-8.2)
[2021-04-26 07:47] LABS: Platelet Count 353 10^3/uL (130-400)
[2021-04-30] MEDS: Normal Saline Flush 10 ML SYR IVP (07:06)
[2021-04-30 07:08] LABS: Abs Immature Grans 0.11 10^3/uL (0.0-0.06); Absolute Basophil Count 0.07 10^3/uL (0.0-0.2); Absolute Eosinophil Count 0.21 10^3/uL (0.0-0.7); Absolute Lymphocyte Count 1.46 10^3/uL (1.2-3.4); Absolute Monocyte Count 0.82 10^3/uL (0.1-0.8); Absolute Neutrophil Count 6.97 10^3/uL (1.2-6.7); Basophils % 0.7; Eosinophils % 2.2; HCT 36.1 % (40.0-50.0); HGB 11.9 g/dL (13.5-17.5); Immature Grans % 1.1; Lymphocytes % 15.1; MCH 33.4 pg (27.0-33.0); MCV 101.4 fL (80-95); MPV 10.2 fL (8.0-11.0); Monocytes % 8.5; Neutrophils % 72.4; Nucleated RBC 0 %; Platelet Count 420 10^3/uL (130-400); RBC 3.56 10^6/uL (4.36-5.78); RDW 14.7 % (11.8-14.1); RDW-SD 54.5 fL; WBC 9.64 10^3/uL (4.4-10.8)
[2021-04-30 07:28] LABS: ALT 45 U/L (16-63); AST 24 U/L (15-37); Albumin 3.3 g/dL (3.4-5.0); Alkaline Phosphatase 133 U/L (46-116); Anion Gap 6.7 mmol/L (3-11); BUN 13 mg/dL (7-18); Bilirubin, Total 0.3 mg/dL (0.2-1.0); CO2 30.3 mmol/L (21.0-32.0); CREATININE 0.8 mg/dL (0.70-1.30); Calcium 8.6 mg/dL (8.5-10.1); Chloride 105 mmol/L (98-107); Glucose 162 mg/dL (74-106); Magnesium 1.9 mg/dL (1.8-2.4); Potassium 4.2 mmol/L (3.5-5.1); Sodium 142 mmol/L (136-145)
[2021-05-02] MEDS: Normal Saline Flush 10 ML SYR IVP (07:41)
[2021-05-02 07:50] LABS: Abs Immature Grans 0.12 10^3/uL (0.0-0.06); Absolute Basophil Count 0.05 10^3/uL (0.0-0.2); Absolute Eosinophil Count 0.24 10^3/uL (0.0-0.7); Absolute Lymphocyte Count 1.22 10^3/uL (1.2-3.4); Absolute Monocyte Count 0.76 10^3/uL (0.1-0.8); Absolute Neutrophil Count 6.88 10^3/uL (1.2-6.7); Basophils % 0.5; Eosinophils % 2.6; HCT 36.1 % (40.0-50.0); HGB 11.6 g/dL (13.5-17.5); Immature Grans % 1.3; Lymphocytes % 13.2; MCH 32.6 pg (27.0-33.0); MCHC 32.1 % (32.0-36.0); MCV 101.4 fL (80-95); MPV 10.4 fL (8.0-11.0); Monocytes % 8.2; Neutrophils % 74.2; Nucleated RBC 0 %; Platelet Count 442 10^3/uL (130-400); RBC 3.56 10^6/uL (4.36-5.78); RDW 14.7 % (11.8-14.1); RDW-SD 55.7 fL; WBC 9.27 10^3/uL (4.4-10.8)
[2021-05-02 08:02] LABS: ALT 32 U/L (16-63); AST 19 U/L (15-37); Albumin 3.2 g/dL (3.4-5.0); Alkaline Phosphatase 134 U/L (46-116); BUN 14 mg/dL (7-18); Bilirubin, Total 0.3 mg/dL (0.2-1.0); CREATININE 0.8 mg/dL (0.70-1.30); Calcium 8.8 mg/dL (8.5-10.1); Chloride 106 mmol/L (98-107); Glucose 154 mg/dL (74-106); Potassium 4.2 mmol/L (3.5-5.1); Sodium 141 mmol/L (136-145); Total Protein 6.8 g/dL (6.4-8.2)
== END 2021-05-02 23:59 | disposition home or self-care (01) ==
LOC: INF 02:29
PROVIDERS: Visit Provider Internal Medicine Hematology & Oncology
DX: C92.41 Acute promyelocytic leukemia, in remission (principal); Z45.2 Encounter for adjustment and management of vascular access device
CPT/HCPCS: 36591; 80053; 83735; 85025

== ENCOUNTER 2021-05-02 07:31 | Outpatient (CLI) | payer MEDICAID, SELFPAY ==
--- NOTE | 2021-05-02 07:45 | RT.EKG_ITS ---
APPROVED REPORT Exam: Resting ECG Reason for Exam: Check QTCs prior to infusion Patient Location: O HR:91 bpm ECG Measurements Heart Rate 91 AXIS NV 147 P 39 QRSd 96 QRS -7 QT 345 T 34 QTc 426 Conclusion Sinus rhythm...normal P axis, V-rate 60- 99
== END 2021-05-02 07:32 | disposition home or self-care (01) ==
LOC: RT 07:32
PROVIDERS: Visit Provider Internal Medicine Hematology & Oncology
DX: C92.41 Acute promyelocytic leukemia, in remission (principal)
CPT/HCPCS: 93005; 93010

== ENCOUNTER 2021-05-10 09:03 | Emergency (ER) | payer MEDICAID, SELFPAY ==
[2021-05-10] VITALS (49 sets, daily range): BP systolic 101–132; BP diastolic 65–90; PULSE 77–102; RESP 10–21; TEMP 36.7; O2SAT 97–100
--- NOTE | 2021-05-10 09:00 | RT.EKG_ITS ---
APPROVED REPORT Exam: Resting ECG Reason for Exam: chest pain Patient Location: E HR:93 bpm ECG Measurements Heart Rate 93 AXIS OR 145 P 42 QRSd 90 QRS -1 QT 347 T 36 QTc 431 Conclusion Sinus rhythm...normal P axis, V-rate 60- 99
[2021-05-10 09:23] LABS: Abs Immature Grans 0.04 10^3/uL (0.0-0.06); Absolute Basophil Count 0.05 10^3/uL (0.0-0.2); Absolute Eosinophil Count 0.62 10^3/uL (0.0-0.7); Absolute Lymphocyte Count 1.42 10^3/uL (1.2-3.4); Absolute Monocyte Count 1.33 10^3/uL (0.1-0.8); Absolute Neutrophil Count 7.24 10^3/uL (1.2-6.7); Basophils % 0.5; Eosinophils % 5.8; HCT 34.3 % (40.0-50.0); HGB 11.3 g/dL (13.5-17.5); Immature Grans % 0.4; Lymphocytes % 13.3; MCHC 32.9 % (32.0-36.0); MCV 97.2 fL (80-95); MPV 10.7 fL (8.0-11.0); Monocytes % 12.4; Neutrophils % 67.6; Nucleated RBC 0 %; Platelet Count 360 10^3/uL (130-400); RBC 3.53 10^6/uL (4.36-5.78); RDW 14.6 % (11.8-14.1); RDW-SD 51.9 fL
--- NOTE | 2021-05-10 09:30 | DI.CT_ITS ---
Exam(s) CT CHEST PE CTA EXAM: CT CHEST PE CTA CLINICAL HISTORY: chest pain, recent pericarditis. TECHNIQUE: Imaging Protocol: Axial CT angiography was performed with multi-slice acquisition and mu lti-planar and/or 3D reconstructions. CONTRAST MATERIAL: Intravenous: Omnipaque 350 Contrast volume:100 cc COMPARISON: CR,XR XR CHEST 2V PA LATERAL from 02/10/[address] CHEST PE ABD PELVIS W from 02/11/2021 FINDINGS: Pulmonary Arteries: No evidence of filling defect to suggest pulmonary emboli. Tracheobronchial tree: Patent where visualized. Mediastinum and Nancy: No dominant adenopathy or fluid collection. Pulmonary parenchyma: Leg suboptimally evaluated due to expiratory changes. No infiltrates. Several tiny pulmonary nodules are again identified, not significantly changed.. Pleura: No effusion or pneumothorax. Heart: The heart is not dilated. No coronary artery calcifications are seen. Aorta: Thoracic aorta non-dilated. Upper abdomen: Scar cholecystectomy. Bones: Scoliosis and chronic ribcage deformity. Tubes, Catheters, and Lines: Port over right chest wall tip in upper right atrium. IMPRESSION: No evidence of pulmonary embolism. No pulmonary infiltrates, pleural or pericardial effusion. RADIATION DOSE DELIVERED: 546.61mGy.cm Total DLP DATA REPOSITORY: All CT scans at this facility are submitted to the National Radiology Data Registry (NRDR) Dose Index Registry (DIR) with the [employer] (ACR). RADIATION OPTIMIZATION: All CT scans at this facility use at least one of these dose optimization te chniques: automated exposure control; mA and/or kV adjustment per patient size (includes targeted exa ms where dose is matched to clinical indication); or iterative reconstruction.
[2021-05-10 09:44] LABS: ALT 23 U/L (16-63); AST 13 U/L (15-37); Alkaline Phosphatase 120 U/L (46-116); Anion Gap 9.5 mmol/L (3-11); BUN 10 mg/dL (7-18); Bilirubin, Total 0.4 mg/dL (0.2-1.0); CO2 27.5 mmol/L (21.0-32.0); CREATININE 0.8 mg/dL (0.70-1.30); Calcium 8.5 mg/dL (8.5-10.1); Chloride 106 mmol/L (98-107); Glucose 94 mg/dL (74-106); Sodium 143 mmol/L (136-145); Total Protein 6.7 g/dL (6.4-8.2); Troponin I < 0.05 ng/mL (<0.06)
[2021-05-10] MEDS: Omnipaque 350 MG/ML 100 ML BTL IV (11:01)
[2021-05-10] MEDS: Normal Saline - Diluent 50 ML VIAL IV (11:02)
--- NOTE | 2021-05-10 11:05 | W.ED.GENAD ---
Discharge Plan Disposition Patient Disposition: AGAINST MEDICAL ADVICE Discharge Details Clinical Impression: Chest pain, Pericarditis Primary Care Provider: None,None ED Provider: Evan Red Home Meds and New Rx's Prescriptions: New ibuprofen [IBU] 600 mg tablet 600 mg PO Q8H PRNQty: 42 RF: 0 No Action acetaminophen [Tylenol] 325 MG tablet 1,000 mg PO Q6H PRNRF: 0 loratadine [Claritin] 10 MG tablet 10 mg PO PRN RF: 0 atorvastatin 40 mg tablet 40 mg PO QPM RF: 0 tretinoin (antineoplastic) 10 mg capsule 50 mg PO QAM RF: 0 tretinoin (antineoplastic) 10 mg capsule 40 mg PO QPM RF: 0 acyclovir 400 mg tablet 400 mg PO BID RF: 0 Eliquis 5 mg tablet 5 mg PO BID RF: 0 colchicine 0.6 mg capsule 0.6 mg PO BID RF: 0 Discharge Instructions Instructions: Acute Pericarditis (ED), Against Medical Advice (ED) Additional Instructions: You are leaving AGAINST MEDICAL ADVICE. You may have lifestyle modifying or life-threatening disease that would go undiagnosed and untreated. Please follow-up with Dr. Arvizu. I spoke with Dr. Arvizu today and he will have his office reach out to you to arrange follow-up next week. Dr. Arvizu recommend that you discontinue chemotherapeutic treatment this week. Please also contact Dr. Mckeon to discuss follow-up treatment. Return to the emergency department at any time for worsening or new concerning symptoms or to continue with treatment as recommended. 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 Consider pericarditis versus ACS versus pulmonary embolism. Screening ECG was reviewed and interpreted by radiology: Sinus rhythm 93 bpm, normal axis, no STEMI, please see report. Initial troponin negative. Plan to obtain CT of the chest. 12:55 -- CT chest interpreted by radiology: IMPRESSION: No evidence of pulmonary embolism. No pulmonary infiltrates, pleural or pericardial effusion. Labs reviewed: Initial troponin negative. No leukocytosis. Presentation at this point most consistent with acute pericarditis. Patient is currently taking colchicine, he was treated with steroid as well at [facility], I will treat with prednisone now. Plan to discuss case with [facility] oncology. Call to [facility] transfer center awaiting callback. --I spoke with [facility] oncologist circulation manager and discussed ED presentation course including diagnostic, he agrees with hospitalization here at [facility] for monitoring trending troponin. I spoke with Dr. Arvizu, the patient's grease machine worker, discussed ED presentation course including diagnostic, he agrees with hospitalization here at [facility] for monitoring. He recommends against additional steroid and recommends ibuprofen 600 mg 3 times daily for the next 2 weeks. He recommends holding additional outpatient chemotherapeutic treatment this week. I attempted to speak with Dr. Mckeon, patient's oncologist, unfortunately she was not available. I had a discussion with the patient about my diagnostic/treatment plan. Patient declines plan and wishes to leave against medical advise. He would prefer to continue treatment at home. I reiterated my concerns to the patient and explained the risks of leaving prior to completion of workup and treatment. I specifically emphasized the possibility of life-threatening or lifestyle modifying disease that would not be appropriately treated if they leave. Patient verbalized understanding of my concerns and the potential for life threatening or lifestyle modifying disease. Patient has capacity to make informed decision. I again explained my concerns and urged the patient to stay for treatment as outlined. Patient continued to refuse. I then discussed potential less ideal alternatives to diagnostic/treatment plan as outlines and patient refused. I recommended that the patient follow-up with primary care physician [facility]CAS or return to the Emergency Department at any time for further treatment. I will prescribe ibuprofen and have him follow-up with Dr. Arvizu. Dr. Arvizu will arrange for outpatient follow-up. HPI General Mode of arrival: ambulatory. Date/Time Provider Initiated Documentation: 05/10/21 09:07. Limitations to Documentation: no limitations. Information obtained by: patient. HPI Narrative: 45-year-old male with history of acute promyelocytic leukemia, currently receiving chemotherapy including ATRA and arsenic, recent pericarditis in March, recent acute pulmonary embolism, presents today with chief complaint of chest pain. Patient notes he has had chest pain for the past few days. Pain is constant. Pain is moderate and worse with certain positions including leaning forward and landing on his left lateral side. Pain radiates into his neck. He has no associated shortness of breath. No leg swelling or calf pain. He has had some recent loose stools. No nausea or vomiting. No fevers. Patient is on Eliquis and has been taking as prescribed. Related Data Home Medications Medication Instructions Recorded Confirmed acetaminophen [Tylenol] 1,000 mg PO Q6H PRN 01/28/17 05/10/21 loratadine [Claritin] 10 mg PO PRN tab-cap 07/01/17 05/10/21 acyclovir 400 mg PO BID 05/10/21 05/10/21 apixaban [Eliquis] 5 mg PO BID 05/10/21 05/10/21 atorvastatin 40 mg PO QPM 05/10/21 05/10/21 colchicine 0.6 mg PO BID 05/10/21 05/10/21 ibuprofen [IBU] 600 mg PO Q8H PRN #42 tab 05/10/21 tretinoin (antineoplastic) 40 mg PO QPM 05/10/21 05/10/21 tretinoin (antineoplastic) 50 mg PO QAM 05/10/21 05/10/21 Previous Rx's Medication Instructions Recorded ibuprofen [IBU] 600 mg PO Q8H PRN #42 tab 05/10/21 Allergies Allergy/AdvReac Type Severity Reaction Status Date / Time ANIMALS Allergy Intermediate Uncoded 05/10/21 09:19 General Stated Complaint: Chest Pain TJ: 2 Review of Systems All systems reviewed & are unremarkable except as noted in HPI and below Constitutional Constitutional: Denies fever(s) Cardiovascular Cardiovascular: Reports as per HPI [facility] Medical History (Updated 05/10/21 @ 13:50 by Evan Red MD) Obstructive sleep apnea Surgical History History of hernia repair History of tonsillectomy Hx of cholecystectomy Social History Smoking/Tobacco Use Status: Former Tobacco Use Smoking risk assessment performed?: Yes Alcohol Intake: current Alcohol Intake frequency: a few times a month Drug use: Never Substance use type: does not use Do you feel safe at home: Yes Do you feel safe in your relationship?: Yes Exam Const General: cooperative and no acute distress HENMT Mouth: moist mucous membranes Eyes Conjunctivae: normal conjunctivae Sclera: normal sclerae Neck Neck: trachea midline and supple Resp Auscultation: clear to auscultation bilaterally, no rales, no rhonchi and no wheezes Cardio Rate: regular rate and not tachycardic Rhythm: regular rhythm GI Palpation: soft, not firm, no guarding, no masses, not rigid and nontender Skin General skin exam: no rashes or lesions noted Neuro General: patient alert, patient awake, patient oriented x3 and tone normal Extrem General: no calf tenderness and no edema Psych Appearance: grossly normal Mental Status: mental status grossly normal Course Vital Signs Vital signs: Vital Signs Temperature 36.7 C 05/10/21 09:05 Pulse 97 H 05/10/21 09:05 Respiratory Rate 15 05/10/21 09:05 Blood Pressure 132/73 05/10/21 09:05 Pulse Oximetry 99 05/10/21 09:05 Temperature 36.7 C 05/10/21 09:05 Temperature Source Temporal Artery Scan 05/10/21 09:05 Pulse 82 05/10/21 10:16 Pulse 84 05/10/21 10:20 Respiratory Rate 12 05/10/21 10:20 Respiratory Effort Non-Labored 05/10/21 09:14 Respiratory Depth Normal 05/10/21 09:14 Respiratory Pattern Normal 05/10/21 09:14 Blood Pressure 119/82 05/10/21 10:16 Blood Pressure Mean 90 05/10/21 10:16 Blood Pressure Position Supine 05/10/21 09:05 Pulse Oximetry 98 05/10/21 10:20 Oxygen Delivery Method Room Air 05/10/21 09:05 Oxygen Flow Rate 0 05/10/21 09:05 Pain Level 5 05/10/21 09:14 Lab/Test Results Lab/Test Results: Laboratory Tests Range/Units 05/10/21 05/10/21 09:09 09:09 WBC (4.4-10.8) 10^3/uL 10.70 RBC (4.36-5.78) 10^6/uL 3.53 L Hgb (13.5-17.5) g/dL 11.3 L Hct (40.0-50.0) % 34.3 L MCV (80-95) fL 97.2 H MCH (27.0-33.0) pg 32.0 MCHC (32.0-36.0) % 32.9 RDW (11.8-14.1) % 14.6 H Plt Count (130-400) 10^3/uL 360 MPV (8.0-11.0) fL 10.7 Immature Gran % 0.4 Neutrophils % 67.6 Lymphocytes % 13.3 Monocytes % 12.4 Eosinophils % 5.8 Basophils % 0.5 Nucleated RBC % % 0 Absolute Neutrophils (1.2-6.7) 10^3/uL 7.24 H Absolute Lymphocytes (1.2-3.4) 10^3/uL 1.42 Absolute Monocytes (0.1-0.8) 10^3/uL 1.33 H Absolute Eosinophils (0.0-0.7) 10^3/uL 0.62 Absolute Basophils (0.0-0.2) 10^3/uL 0.05 Sodium (136-145) mmol/L 143 Potassium (3.5-5.1) mmol/L 4.0 Chloride (98-107) mmol/L 106 Carbon Dioxide (21.0-32.0) mmol/L 27.5 Anion Gap (3-11) mmol/L 9.5 BUN (7-18) mg/dL 10 Creatinine (0.70-1.30) mg/dL 0.8 Estimated GFR/1.73 m2 (mL/min/1.73m2) >= 60.00 Glucose (74-106) mg/dL 94 D Calcium (8.5-10.1) mg/dL 8.5 Total Bilirubin (0.2-1.0) mg/dL 0.4 AST (15-37) U/L 13 L ALT (16-63) U/L 23 Alkaline Phosphatase (46-116) U/L 120 H Troponin I (<0.06) ng/mL < 0.05 Total Protein (6.4-8.2) g/dL 6.7 Albumin (3.4-5.0) g/dL 3.0 L
[2021-05-10] MEDS: predniSONE 20 MG TAB 60 MG PO (12:43)
[2021-05-10] MEDS: Ibuprofen 600 MG TAB PO (13:31)
[2021-05-10 13:42] LABS: Troponin I < 0.05 ng/mL (<0.06)
== END 2021-05-10 16:46 | disposition left against medical advice (07) ==
PROVIDERS: Emergency Provider Student in an Organized Health Care Education/Training Program
DX: I30.9 Acute pericarditis, unspecified (principal); R07.89 Other chest pain; Z53.29 Procedure and treatment not carried out because of patient's decision for other reasons
CPT/HCPCS: 71275; 80053; 87635; 93005; 99285; 84484; 85025; 93010; J3490; J7512

== ENCOUNTER 2021-05-28 02:52 | Outpatient (CLI) | payer MEDICAID, SELFPAY ==
--- NOTE | 2021-05-28 07:45 | RT.EKG_ITS ---
APPROVED REPORT Exam: Resting ECG Reason for Exam: acute promyelocytic leukemia in remission Patient Location: O HR:73 bpm ECG Measurements Heart Rate 73 AXIS MI 147 P 44 QRSd 101 QRS 7 QT 368 T 55 QTc 407 Conclusion Sinus rhythm...normal P axis, V-rate 60- 99
== END 2021-05-28 02:53 | disposition home or self-care (01) ==
LOC: RT 02:52
PROVIDERS: Visit Provider Internal Medicine Hematology & Oncology
DX: C92.41 Acute promyelocytic leukemia, in remission (principal)
CPT/HCPCS: 93005; 93010

== ENCOUNTER 2021-05-30 02:56 | Outpatient (RCR) | payer MEDICAID, SELFPAY ==
[2021-05-08 08:27] LABS: Abs Immature Grans 0.05 10^3/uL (0.0-0.06); Absolute Basophil Count 0.07 10^3/uL (0.0-0.2); Absolute Eosinophil Count 0.51 10^3/uL (0.0-0.7); Absolute Lymphocyte Count 1.34 10^3/uL (1.2-3.4); Absolute Monocyte Count 0.88 10^3/uL (0.1-0.8); Absolute Neutrophil Count 7.49 10^3/uL (1.2-6.7); Basophils % 0.7; Eosinophils % 4.9; HCT 35.7 % (40.0-50.0); HGB 11.6 g/dL (13.5-17.5); Immature Grans % 0.5; MCH 32.5 pg (27.0-33.0); MCHC 32.5 % (32.0-36.0); MPV 10.4 fL (8.0-11.0); Monocytes % 8.5; Neutrophils % 72.4; Nucleated RBC 0 %; Platelet Count 391 10^3/uL (130-400); RBC 3.57 10^6/uL (4.36-5.78); RDW 14.5 % (11.8-14.1); RDW-SD 52.5 fL; WBC 10.34 10^3/uL (4.4-10.8)
[2021-05-08] MEDS: Normal Saline Flush 10 ML SYR IVP (08:41)
[2021-05-08 08:47] LABS: ALT 37 U/L (16-63); AST 28 U/L (15-37); Albumin 3.2 g/dL (3.4-5.0); Alkaline Phosphatase 121 U/L (46-116); BUN 12 mg/dL (7-18); Bilirubin, Total 0.3 mg/dL (0.2-1.0); CREATININE 0.8 mg/dL (0.70-1.30); Calcium 8.8 mg/dL (8.5-10.1); Chloride 107 mmol/L (98-107); Glucose 86 mg/dL (74-106); Potassium 4.4 mmol/L (3.5-5.1); Sodium 144 mmol/L (136-145); Total Protein 6.7 g/dL (6.4-8.2)
[2021-05-09] MEDS: Normal Saline Flush 10 ML SYR IVP (07:38)
[2021-05-09 07:47] LABS: Abs Immature Grans 0.04 10^3/uL (0.0-0.06); Absolute Basophil Count 0.05 10^3/uL (0.0-0.2); Absolute Eosinophil Count 0.67 10^3/uL (0.0-0.7); Absolute Lymphocyte Count 1.26 10^3/uL (1.2-3.4); Absolute Monocyte Count 0.83 10^3/uL (0.1-0.8); Absolute Neutrophil Count 6.94 10^3/uL (1.2-6.7); Basophils % 0.5; Eosinophils % 6.8; HCT 35.2 % (40.0-50.0); HGB 11.6 g/dL (13.5-17.5); Immature Grans % 0.4; Lymphocytes % 12.9; MCH 32.4 pg (27.0-33.0); MCV 98.3 fL (80-95); MPV 10.6 fL (8.0-11.0); Monocytes % 8.5; Neutrophils % 70.9; Nucleated RBC 0 %; Platelet Count 384 10^3/uL (130-400); RBC 3.58 10^6/uL (4.36-5.78); RDW 14.7 % (11.8-14.1); RDW-SD 53.4 fL; WBC 9.79 10^3/uL (4.4-10.8)
--- NOTE | 2021-05-09 08:00 | RT.EKG_ITS ---
APPROVED REPORT Exam: Resting ECG Reason for Exam: ACUTE PROMYELOCTIC LEUKEMIA IN REMISSION Patient Location: O HR:85 bpm ECG Measurements Heart Rate 85 AXIS WI 149 P 34 QRSd 96 QRS -7 QT 367 T 29 QTc 437 Conclusion Sinus rhythm...normal P axis, V-rate 60- 99
[2021-05-09 08:04] LABS: ALT 30 U/L (16-63); AST 17 U/L (15-37); Alkaline Phosphatase 124 U/L (46-116); Anion Gap 8.9 mmol/L (3-11); BUN 10 mg/dL (7-18); Bilirubin, Total 0.4 mg/dL (0.2-1.0); CO2 28.1 mmol/L (21.0-32.0); CREATININE 0.9 mg/dL (0.70-1.30); Calcium 8.3 mg/dL (8.5-10.1); Chloride 106 mmol/L (98-107); Glucose 196 mg/dL (74-106); Magnesium 1.8 mg/dL (1.8-2.4); Sodium 143 mmol/L (136-145); Total Protein 6.4 g/dL (6.4-8.2)
[2021-05-15] MEDS: Normal Saline Flush 10 ML SYR IVP (07:50)
[2021-05-15 07:57] LABS: Abs Immature Grans 0.09 10^3/uL (0.0-0.06); Absolute Basophil Count 0.07 10^3/uL (0.0-0.2); Absolute Eosinophil Count 0.68 10^3/uL (0.0-0.7); Absolute Lymphocyte Count 1.61 10^3/uL (1.2-3.4); Absolute Monocyte Count 0.83 10^3/uL (0.1-0.8); Absolute Neutrophil Count 5.93 10^3/uL (1.2-6.7); Basophils % 0.8; Eosinophils % 7.4; HCT 36.5 % (40.0-50.0); HGB 11.8 g/dL (13.5-17.5); Lymphocytes % 17.5; MCH 32.2 pg (27.0-33.0); MCHC 32.3 % (32.0-36.0); MCV 99.5 fL (80-95); MPV 10.3 fL (8.0-11.0); Neutrophils % 64.3; Nucleated RBC 0 %; Platelet Count 423 10^3/uL (130-400); RBC 3.67 10^6/uL (4.36-5.78); RDW 14.3 % (11.8-14.1); RDW-SD 52.6 fL; WBC 9.21 10^3/uL (4.4-10.8)
[2021-05-15 08:17] LABS: ALT 17 U/L (16-63); AST 12 U/L (15-37); Albumin 3.2 g/dL (3.4-5.0); Alkaline Phosphatase 116 U/L (46-116); Anion Gap 8.6 mmol/L (3-11); BUN 12 mg/dL (7-18); Bilirubin, Total 0.4 mg/dL (0.2-1.0); CO2 28.4 mmol/L (21.0-32.0); CREATININE 0.7 mg/dL (0.70-1.30); Calcium 8.6 mg/dL (8.5-10.1); Chloride 105 mmol/L (98-107); Glucose 157 mg/dL (74-106); Magnesium 2.1 mg/dL (1.8-2.4); Potassium 4.2 mmol/L (3.5-5.1); Sodium 142 mmol/L (136-145); Total Protein 6.9 g/dL (6.4-8.2)
[2021-05-28] MEDS: Normal Saline Flush 10 ML SYR IVP (07:46)
[2021-05-28 08:32] LABS: ALT 18 U/L (16-63); AST 17 U/L (15-37); Albumin 3.6 g/dL (3.4-5.0); Alkaline Phosphatase 103 U/L (46-116); Anion Gap 5.6 mmol/L (3-11); BUN 15 mg/dL (7-18); Bilirubin, Total 0.3 mg/dL (0.2-1.0); CO2 31.4 mmol/L (21.0-32.0); CREATININE 0.8 mg/dL (0.70-1.30); Calcium 8.6 mg/dL (8.5-10.1); Chloride 106 mmol/L (98-107); Glucose 149 mg/dL (74-106); Magnesium 1.8 mg/dL (1.8-2.4); Potassium 3.9 mmol/L (3.5-5.1); Sodium 143 mmol/L (136-145); Total Protein 6.9 g/dL (6.4-8.2)
[2021-05-28 08:41] LABS: Abs Immature Grans 0.07 10^3/uL (0.0-0.06); Absolute Basophil Count 0.08 10^3/uL (0.0-0.2); Absolute Eosinophil Count 0.42 10^3/uL (0.0-0.7); Absolute Lymphocyte Count 1.82 10^3/uL (1.2-3.4); Absolute Monocyte Count 0.56 10^3/uL (0.1-0.8); Absolute Neutrophil Count 6.33 10^3/uL (1.2-6.7); Basophils % 0.9; Eosinophils % 4.5; HCT 40.1 % (40.0-50.0); Immature Grans % 0.8; Lymphocytes % 19.6; MCH 30.7 pg (27.0-33.0); MCHC 32.4 % (32.0-36.0); MCV 94.6 fL (80-95); MPV 10.8 fL (8.0-11.0); Neutrophils % 68.2; Nucleated RBC 0 %; Platelet Count 332 10^3/uL (130-400); RBC 4.24 10^6/uL (4.36-5.78); RDW 13.5 % (11.8-14.1); RDW-SD 46.8 fL; WBC 9.28 10^3/uL (4.4-10.8)
[2021-05-30] MEDS: Normal Saline Flush 10 ML SYR IVP (07:30)
[2021-05-30 08:06] LABS: Abs Immature Grans 0.07 10^3/uL (0.0-0.06); Absolute Basophil Count 0.07 10^3/uL (0.0-0.2); Absolute Eosinophil Count 0.68 10^3/uL (0.0-0.7); Absolute Lymphocyte Count 1.13 10^3/uL (1.2-3.4); Absolute Monocyte Count 0.73 10^3/uL (0.1-0.8); Basophils % 0.9; Eosinophils % 8.3; HCT 41.4 % (40.0-50.0); HGB 13.4 g/dL (13.5-17.5); Immature Grans % 0.9; Lymphocytes % 13.8; MCHC 32.4 % (32.0-36.0); MCV 95.8 fL (80-95); MPV 10.8 fL (8.0-11.0); Monocytes % 8.9; Neutrophils % 67.2; Nucleated RBC 0 %; Platelet Count 319 10^3/uL (130-400); RBC 4.32 10^6/uL (4.36-5.78); RDW 13.3 % (11.8-14.1); RDW-SD 47.7 fL; WBC 8.18 10^3/uL (4.4-10.8)
[2021-05-30 08:20] LABS: ALT 22 U/L (16-63); AST 14 U/L (15-37); Albumin 3.7 g/dL (3.4-5.0); Alkaline Phosphatase 105 U/L (46-116); Anion Gap 7.6 mmol/L (3-11); BUN 13 mg/dL (7-18); Bilirubin, Total 0.4 mg/dL (0.2-1.0); CO2 28.4 mmol/L (21.0-32.0); CREATININE 0.8 mg/dL (0.70-1.30); Calcium 8.7 mg/dL (8.5-10.1); Chloride 106 mmol/L (98-107); Glucose 156 mg/dL (74-106); Magnesium 1.8 mg/dL (1.8-2.4); Sodium 142 mmol/L (136-145); Total Protein 6.8 g/dL (6.4-8.2)
== END 2021-06-02 23:59 | disposition home or self-care (01) ==
LOC: INF 02:56
PROVIDERS: Visit Provider Internal Medicine Hematology & Oncology
DX: C92.41 Acute promyelocytic leukemia, in remission (principal); Z45.2 Encounter for adjustment and management of vascular access device
CPT/HCPCS: 36591; 80053; 83735; 85025; 93005; 93010

== ENCOUNTER 2021-05-30 04:09 | Outpatient (CLI) | payer MEDICAID, SELFPAY ==
--- NOTE | 2021-05-30 07:45 | RT.EKG_ITS ---
APPROVED REPORT Exam: Resting ECG Reason for Exam: ACUTE PROMYELOCYTIC LEUKEMIA IN REMISSION C92.41 Patient Location: O HR:85 bpm ECG Measurements Heart Rate 85 AXIS [place] 144 P 44 QRSd 100 QRS -11 QT 352 T 54 QTc 420 Conclusion Sinus rhythm...normal P axis, V-rate 60- 99
== END 2021-05-30 04:10 | disposition home or self-care (01) ==
PROVIDERS: Visit Provider Internal Medicine Hematology & Oncology
DX: C92.41 Acute promyelocytic leukemia, in remission (principal)
CPT/HCPCS: 93005; 93010

== ENCOUNTER 2021-06-04 02:55 | Outpatient (CLI) | payer MEDICAID, SELFPAY ==
--- NOTE | 2021-06-04 07:45 | RT.EKG_ITS ---
APPROVED REPORT Exam: Resting ECG Reason for Exam: leukemia remission Patient Location: O HR:78 bpm ECG Measurements Heart Rate 78 AXIS MS 148 P 41 QRSd 98 QRS -10 QT 375 T 33 QTc 427 Conclusion Sinus rhythm...normal P axis, V-rate 60- 99
== END 2021-06-04 02:56 | disposition home or self-care (01) ==
LOC: RT 02:56
PROVIDERS: Visit Provider Internal Medicine Hematology & Oncology
DX: C92.41 Acute promyelocytic leukemia, in remission (principal)
CPT/HCPCS: 93005; 93010

== ENCOUNTER 2021-06-13 03:46 | Outpatient (CLI) | payer MEDICAID, SELFPAY ==
--- NOTE | 2021-06-13 07:45 | RT.EKG_ITS ---
APPROVED REPORT Exam: Resting ECG Reason for Exam: High risk medication Patient Location: O HR:79 bpm ECG Measurements Heart Rate 79 AXIS CO 146 P 35 QRSd 97 QRS -2 QT 364 T 49 QTc 419 Conclusion Sinus rhythm...normal P axis, V-rate 60- 99
== END 2021-06-13 03:47 | disposition home or self-care (01) ==
PROVIDERS: Visit Provider Internal Medicine Hematology & Oncology
DX: C92.41 Acute promyelocytic leukemia, in remission (principal)
CPT/HCPCS: 93005; 93010

== ENCOUNTER 2021-06-20 01:25 | Outpatient (RCR) | payer MEDICAID, SELFPAY ==
[2021-06-04] MEDS: Normal Saline Flush 10 ML SYR IVP (07:49)
[2021-06-04 07:52] LABS: Abs Immature Grans 0.03 10^3/uL (0.0-0.06); Absolute Basophil Count 0.05 10^3/uL (0.0-0.2); Absolute Eosinophil Count 0.66 10^3/uL (0.0-0.7); Absolute Lymphocyte Count 1.26 10^3/uL (1.2-3.4); Absolute Monocyte Count 0.46 10^3/uL (0.1-0.8); Basophils % 0.8; Eosinophils % 9.9; HCT 39.3 % (40.0-50.0); HGB 12.8 g/dL (13.5-17.5); Immature Grans % 0.5; Lymphocytes % 18.9; MCH 30.6 pg (27.0-33.0); MCHC 32.6 % (32.0-36.0); Monocytes % 6.9; Nucleated RBC 0 %; Platelet Count 276 10^3/uL (130-400); RBC 4.18 10^6/uL (4.36-5.78); RDW 13.2 % (11.8-14.1); RDW-SD 45.5 fL; WBC 6.66 10^3/uL (4.4-10.8)
[2021-06-04 08:08] LABS: ALT 36 U/L (16-63); AST 25 U/L (15-37); Albumin 3.5 g/dL (3.4-5.0); Alkaline Phosphatase 102 U/L (46-116); Anion Gap 7.7 mmol/L (3-11); BUN 10 mg/dL (7-18); Bilirubin, Total 0.3 mg/dL (0.2-1.0); CO2 29.3 mmol/L (21.0-32.0); CREATININE 0.7 mg/dL (0.70-1.30); Calcium 8.4 mg/dL (8.5-10.1); Chloride 107 mmol/L (98-107); Glucose 138 mg/dL (74-106); Magnesium 1.9 mg/dL (1.8-2.4); Sodium 144 mmol/L (136-145); Total Protein 6.6 g/dL (6.4-8.2)
[2021-06-06] MEDS: Normal Saline Flush 10 ML SYR IVP (08:17)
[2021-06-06 08:28] LABS: Abs Immature Grans 0.03 10^3/uL (0.0-0.06); Absolute Basophil Count 0.06 10^3/uL (0.0-0.2); Absolute Eosinophil Count 0.61 10^3/uL (0.0-0.7); Absolute Lymphocyte Count 1.33 10^3/uL (1.2-3.4); Absolute Monocyte Count 0.59 10^3/uL (0.1-0.8); Absolute Neutrophil Count 3.63 10^3/uL (1.2-6.7); Eosinophils % 9.8; HCT 39.5 % (40.0-50.0); HGB 12.8 g/dL (13.5-17.5); Immature Grans % 0.5; Lymphocytes % 21.3; MCH 30.6 pg (27.0-33.0); MCHC 32.4 % (32.0-36.0); MCV 94.5 fL (80-95); MPV 10.8 fL (8.0-11.0); Monocytes % 9.4; Nucleated RBC 0 %; Platelet Count 304 10^3/uL (130-400); RBC 4.18 10^6/uL (4.36-5.78); RDW 13.3 % (11.8-14.1); RDW-SD 46.4 fL; WBC 6.25 10^3/uL (4.4-10.8)
[2021-06-06 08:38] LABS: ALT 27 U/L (16-63); AST 16 U/L (15-37); Albumin 3.6 g/dL (3.4-5.0); Alkaline Phosphatase 101 U/L (46-116); Anion Gap 5.4 mmol/L (3-11); BUN 15 mg/dL (7-18); Bilirubin, Total 0.3 mg/dL (0.2-1.0); CO2 29.6 mmol/L (21.0-32.0); CREATININE 0.7 mg/dL (0.70-1.30); Calcium 8.4 mg/dL (8.5-10.1); Chloride 108 mmol/L (98-107); Glucose 110 mg/dL (74-106); Magnesium 1.8 mg/dL (1.8-2.4); Potassium 3.9 mmol/L (3.5-5.1); Sodium 143 mmol/L (136-145); Total Protein 6.6 g/dL (6.4-8.2)
[2021-06-11] MEDS: Normal Saline Flush 10 ML SYR IVP (07:51)
[2021-06-11 08:03] LABS: Abs Immature Grans 0.03 10^3/uL (0.0-0.06); Absolute Basophil Count 0.06 10^3/uL (0.0-0.2); Absolute Eosinophil Count 0.82 10^3/uL (0.0-0.7); Absolute Lymphocyte Count 1.57 10^3/uL (1.2-3.4); Absolute Monocyte Count 0.48 10^3/uL (0.1-0.8); Absolute Neutrophil Count 4.29 10^3/uL (1.2-6.7); Basophils % 0.8; Eosinophils % 11.3; HCT 40.3 % (40.0-50.0); HGB 13.1 g/dL (13.5-17.5); Immature Grans % 0.4; Lymphocytes % 21.7; MCH 30.8 pg (27.0-33.0); MCHC 32.5 % (32.0-36.0); MCV 94.6 fL (80-95); MPV 10.7 fL (8.0-11.0); Monocytes % 6.6; Neutrophils % 59.2; Nucleated RBC 0 %; Platelet Count 332 10^3/uL (130-400); RBC 4.26 10^6/uL (4.36-5.78); RDW 13.5 % (11.8-14.1); RDW-SD 46.7 fL; WBC 7.25 10^3/uL (4.4-10.8)
[2021-06-11 08:28] LABS: ALT 30 U/L (16-63); AST 19 U/L (15-37); Albumin 3.8 g/dL (3.4-5.0); Alkaline Phosphatase 100 U/L (46-116); Anion Gap 5.6 mmol/L (3-11); BUN 14 mg/dL (7-18); Bilirubin, Total 0.4 mg/dL (0.2-1.0); CO2 29.4 mmol/L (21.0-32.0); CREATININE 0.8 mg/dL (0.70-1.30); Calcium 8.7 mg/dL (8.5-10.1); Chloride 107 mmol/L (98-107); Glucose 122 mg/dL (74-106); Potassium 4.2 mmol/L (3.5-5.1); Sodium 142 mmol/L (136-145); Total Protein 6.9 g/dL (6.4-8.2)
[2021-06-13] MEDS: Normal Saline Flush 10 ML SYR IVP (08:09)
[2021-06-13 08:21] LABS: Abs Immature Grans 0.03 10^3/uL (0.0-0.06); Absolute Basophil Count 0.07 10^3/uL (0.0-0.2); Absolute Eosinophil Count 0.82 10^3/uL (0.0-0.7); Absolute Lymphocyte Count 1.16 10^3/uL (1.2-3.4); Absolute Monocyte Count 0.47 10^3/uL (0.1-0.8); Absolute Neutrophil Count 4.45 10^3/uL (1.2-6.7); Eosinophils % 11.7; HCT 41.3 % (40.0-50.0); HGB 13.2 g/dL (13.5-17.5); Immature Grans % 0.4; Lymphocytes % 16.6; MCH 30.3 pg (27.0-33.0); MCV 94.9 fL (80-95); Monocytes % 6.7; Neutrophils % 63.6; Nucleated RBC 0 %; Platelet Count 324 10^3/uL (130-400); RBC 4.35 10^6/uL (4.36-5.78); RDW 13.8 % (11.8-14.1); RDW-SD 47.7 fL
[2021-06-13 08:34] LABS: ALT 28 U/L (16-63); AST 13 U/L (15-37); Albumin 3.7 g/dL (3.4-5.0); Alkaline Phosphatase 105 U/L (46-116); Anion Gap 5.3 mmol/L (3-11); BUN 18 mg/dL (7-18); Bilirubin, Total 0.3 mg/dL (0.2-1.0); CO2 28.7 mmol/L (21.0-32.0); CREATININE 0.8 mg/dL (0.70-1.30); Calcium 8.5 mg/dL (8.5-10.1); Chloride 107 mmol/L (98-107); Glucose 143 mg/dL (74-106); Magnesium 1.9 mg/dL (1.8-2.4); Potassium 4.1 mmol/L (3.5-5.1); Sodium 141 mmol/L (136-145); Total Protein 6.8 g/dL (6.4-8.2)
[2021-06-18] MEDS: Normal Saline Flush 10 ML SYR IVP (07:40)
[2021-06-18 07:52] LABS: Abs Immature Grans 0.04 10^3/uL (0.0-0.06); Absolute Basophil Count 0.08 10^3/uL (0.0-0.2); Absolute Eosinophil Count 0.63 10^3/uL (0.0-0.7); Absolute Lymphocyte Count 1.06 10^3/uL (1.2-3.4); Absolute Monocyte Count 0.47 10^3/uL (0.1-0.8); Absolute Neutrophil Count 4.09 10^3/uL (1.2-6.7); Basophils % 1.3; Eosinophils % 9.9; HCT 39.6 % (40.0-50.0); HGB 12.6 g/dL (13.5-17.5); Immature Grans % 0.6; Lymphocytes % 16.6; MCH 30.3 pg (27.0-33.0); MCHC 31.8 % (32.0-36.0); MCV 95.2 fL (80-95); MPV 10.9 fL (8.0-11.0); Monocytes % 7.4; Neutrophils % 64.2; Nucleated RBC 0 %; Platelet Count 305 10^3/uL (130-400); RBC 4.16 10^6/uL (4.36-5.78); RDW 13.7 % (11.8-14.1); RDW-SD 47.8 fL; WBC 6.37 10^3/uL (4.4-10.8)
[2021-06-18 08:06] LABS: ALT 25 U/L (16-63); AST 17 U/L (15-37); Albumin 3.7 g/dL (3.4-5.0); Alkaline Phosphatase 92 U/L (46-116); Anion Gap 5.3 mmol/L (3-11); BUN 15 mg/dL (7-18); Bilirubin, Total 0.3 mg/dL (0.2-1.0); CO2 28.7 mmol/L (21.0-32.0); CREATININE 0.8 mg/dL (0.70-1.30); Calcium 8.2 mg/dL (8.5-10.1); Chloride 107 mmol/L (98-107); Glucose 117 mg/dL (74-106); Magnesium 1.9 mg/dL (1.8-2.4); Potassium 4.2 mmol/L (3.5-5.1); Sodium 141 mmol/L (136-145); Total Protein 6.4 g/dL (6.4-8.2)
[2021-06-20] MEDS: Normal Saline Flush 10 ML SYR IVP (07:47)
[2021-06-20 07:55] LABS: Abs Immature Grans 0.02 10^3/uL (0.0-0.06); Absolute Basophil Count 0.06 10^3/uL (0.0-0.2); Absolute Eosinophil Count 0.54 10^3/uL (0.0-0.7); Absolute Lymphocyte Count 1.16 10^3/uL (1.2-3.4); Absolute Monocyte Count 0.42 10^3/uL (0.1-0.8); Absolute Neutrophil Count 4.14 10^3/uL (1.2-6.7); Basophils % 0.9; Eosinophils % 8.5; HCT 41.7 % (40.0-50.0); HGB 13.7 g/dL (13.5-17.5); Immature Grans % 0.3; Lymphocytes % 18.3; MCH 30.4 pg (27.0-33.0); MCHC 32.9 % (32.0-36.0); MCV 92.7 fL (80-95); MPV 11.1 fL (8.0-11.0); Monocytes % 6.6; Neutrophils % 65.4; Nucleated RBC 0 %; Platelet Count 335 10^3/uL (130-400); RDW 13.9 % (11.8-14.1); RDW-SD 47.4 fL; WBC 6.34 10^3/uL (4.4-10.8)
[2021-06-20 08:19] LABS: ALT 24 U/L (16-63); AST 15 U/L (15-37); Albumin 3.9 g/dL (3.4-5.0); Alkaline Phosphatase 99 U/L (46-116); BUN 18 mg/dL (7-18); Bilirubin, Total 0.4 mg/dL (0.2-1.0); CREATININE 0.9 mg/dL (0.70-1.30); Calcium 8.7 mg/dL (8.5-10.1); Chloride 106 mmol/L (98-107); Glucose 159 mg/dL (74-106); Potassium 4.2 mmol/L (3.5-5.1); Sodium 141 mmol/L (136-145); Total Protein 6.9 g/dL (6.4-8.2)
== END 2021-07-03 23:59 | disposition home or self-care (01) ==
LOC: INF 01:25
PROVIDERS: Visit Provider Internal Medicine Hematology & Oncology
DX: C92.41 Acute promyelocytic leukemia, in remission (principal); Z45.2 Encounter for adjustment and management of vascular access device
CPT/HCPCS: 36591; 80053; 83735; 85025

== ENCOUNTER 2021-06-20 02:50 | Outpatient (CLI) | payer MEDICAID, SELFPAY ==
--- NOTE | 2021-06-20 07:45 | RT.EKG_ITS ---
APPROVED REPORT Exam: Resting ECG Reason for Exam: ACTUTE PROMYELOCTIC LEUKEMIA IN REMISSION Patient Location: O HR:87 bpm ECG Measurements Heart Rate 87 AXIS AK 154 P 54 QRSd 90 QRS -10 QT 352 T 57 QTc 423 Conclusion Sinus rhythm...normal P axis, V-rate 60- 99 Probable left atrial enlargement...P >50mS, <-0.10mV V1
== END 2021-06-20 02:51 | disposition home or self-care (01) ==
PROVIDERS: Visit Provider Internal Medicine Hematology & Oncology
DX: C92.41 Acute promyelocytic leukemia, in remission (principal)
CPT/HCPCS: 93005; 93010

== ENCOUNTER 2021-07-19 11:19 | Outpatient (CLI) | payer MEDICAID, SELFPAY | END 2021-07-19 11:20 | disposition home or self-care (01) | LOC: RT 11:20 | PROVIDERS: Visit Provider Internal Medicine Hematology & Oncology | DX: C92.41 Acute promyelocytic leukemia, in remission (principal) | CPT/HCPCS: 93005; 93010 ==

== ENCOUNTER 2021-08-01 02:49 | Outpatient (RCR) | payer MEDICAID, SELFPAY ==
[2021-07-18] MEDS: Heparin 500 UNITS/5 ML SYRINGE (07:44)
[2021-07-18] MEDS: Normal Saline Flush 10 ML SYR IVP (07:46)
[2021-07-18 07:58] LABS: Abs Immature Grans 0.04 10^3/uL (0.0-0.06); Absolute Basophil Count 0.06 10^3/uL (0.0-0.2); Absolute Eosinophil Count 0.37 10^3/uL (0.0-0.7); Absolute Lymphocyte Count 1.97 10^3/uL (1.2-3.4); Absolute Monocyte Count 0.67 10^3/uL (0.1-0.8); Absolute Neutrophil Count 5.59 10^3/uL (1.2-6.7); Basophils % 0.7; Eosinophils % 4.3; HCT 44.2 % (40.0-50.0); HGB 14.4 g/dL (13.5-17.5); Immature Grans % 0.5; Lymphocytes % 22.6; MCH 29.4 pg (27.0-33.0); MCHC 32.6 % (32.0-36.0); MCV 90.4 fL (80-95); MPV 11.5 fL (8.0-11.0); Monocytes % 7.7; Neutrophils % 64.2; Nucleated RBC 0 %; Platelet Count 227 10^3/uL (130-400); RBC 4.89 10^6/uL (4.36-5.78); RDW 13.2 % (11.8-14.1); RDW-SD 43.8 fL
[2021-07-18 08:08] LABS: Magnesium 1.9 mg/dL (1.8-2.4)
[2021-07-18 08:12] LABS: ALT 27 U/L (16-63); AST 15 U/L (15-37); Albumin 3.9 g/dL (3.4-5.0); Alkaline Phosphatase 107 U/L (46-116); Anion Gap 4.2 mmol/L (3-11); BUN 16 mg/dL (7-18); Bilirubin, Total 0.5 mg/dL (0.2-1.0); CO2 30.8 mmol/L (21.0-32.0); CREATININE 0.9 mg/dL (0.70-1.30); Calcium 8.7 mg/dL (8.5-10.1); Chloride 106 mmol/L (98-107); Glucose 115 mg/dL (74-106); Potassium 4.1 mmol/L (3.5-5.1); Sodium 141 mmol/L (136-145); Total Protein 7.1 g/dL (6.4-8.2)
[2021-07-23] MEDS: Normal Saline Flush 10 ML SYR IVP (07:46)
[2021-07-23 08:33] LABS: Abs Immature Grans 0.24 10^3/uL (0.0-0.06); Absolute Basophil Count 0.04 10^3/uL (0.0-0.2); Absolute Lymphocyte Count 2.03 10^3/uL (1.2-3.4); Absolute Monocyte Count 0.68 10^3/uL (0.1-0.8); Basophils % 0.2; HCT 42.8 % (40.0-50.0); Immature Grans % 1.3; Lymphocytes % 11.4; MCH 29.4 pg (27.0-33.0); MCHC 32.7 % (32.0-36.0); MCV 89.9 fL (80-95); MPV 11.5 fL (8.0-11.0); Monocytes % 3.8; Neutrophils % 83.3; Nucleated RBC 0 %; Platelet Count 319 10^3/uL (130-400); RBC 4.76 10^6/uL (4.36-5.78); RDW 13.2 % (11.8-14.1); RDW-SD 43.8 fL; WBC 17.83 10^3/uL (4.4-10.8)
[2021-07-23 08:34] LABS: Absolute Neutrophil Count 14.85 10^3/uL (1.2-6.7)
[2021-07-23 08:46] LABS: Magnesium 2.2 mg/dL (1.8-2.4)
[2021-07-23 08:51] LABS: ALT 21 U/L (16-63); AST 10 U/L (15-37); Albumin 3.9 g/dL (3.4-5.0); Alkaline Phosphatase 109 U/L (46-116); BUN 19 mg/dL (7-18); Bilirubin, Total 0.4 mg/dL (0.2-1.0); CREATININE 0.9 mg/dL (0.70-1.30); Calcium 8.7 mg/dL (8.5-10.1); Chloride 102 mmol/L (98-107); Glucose 210 mg/dL (74-106); Potassium 3.4 mmol/L (3.5-5.1); Sodium 142 mmol/L (136-145); Total Protein 6.9 g/dL (6.4-8.2)
[2021-07-25] MEDS: Normal Saline Flush 10 ML SYR IVP (07:44)
[2021-07-25 07:49] LABS: Abs Immature Grans 0.16 10^3/uL (0.0-0.06); Absolute Basophil Count 0.03 10^3/uL (0.0-0.2); Absolute Eosinophil Count 0.11 10^3/uL (0.0-0.7); Absolute Lymphocyte Count 2.16 10^3/uL (1.2-3.4); Absolute Monocyte Count 1.13 10^3/uL (0.1-0.8); Absolute Neutrophil Count 11.42 10^3/uL (1.2-6.7); Basophils % 0.2; Eosinophils % 0.7; HCT 42.1 % (40.0-50.0); HGB 13.6 g/dL (13.5-17.5); Immature Grans % 1.1; Lymphocytes % 14.4; MCH 29.4 pg (27.0-33.0); MCHC 32.3 % (32.0-36.0); MCV 90.9 fL (80-95); MPV 11.1 fL (8.0-11.0); Monocytes % 7.5; Neutrophils % 76.1; Nucleated RBC 0 %; Platelet Count 322 10^3/uL (130-400); RBC 4.63 10^6/uL (4.36-5.78); RDW 13.6 % (11.8-14.1); RDW-SD 45.8 fL; WBC 15.01 10^3/uL (4.4-10.8)
[2021-07-25 08:02] LABS: ALT 20 U/L (16-63); AST 8 U/L (15-37); Albumin 3.7 g/dL (3.4-5.0); Alkaline Phosphatase 106 U/L (46-116); Anion Gap 6.7 mmol/L (3-11); BUN 18 mg/dL (7-18); Bilirubin, Total 0.4 mg/dL (0.2-1.0); CO2 31.3 mmol/L (21.0-32.0); CREATININE 0.9 mg/dL (0.70-1.30); Calcium 8.7 mg/dL (8.5-10.1); Chloride 104 mmol/L (98-107); Glucose 131 mg/dL (74-106); Potassium 3.5 mmol/L (3.5-5.1); Sodium 142 mmol/L (136-145); Total Protein 6.7 g/dL (6.4-8.2)
[2021-07-30] MEDS: Normal Saline Flush 10 ML SYR IVP (07:44)
[2021-07-30 07:53] LABS: Abs Immature Grans 0.16 10^3/uL (0.0-0.06); Absolute Basophil Count 0.03 10^3/uL (0.0-0.2); Absolute Eosinophil Count 0.12 10^3/uL (0.0-0.7); Absolute Lymphocyte Count 2.36 10^3/uL (1.2-3.4); Absolute Monocyte Count 0.64 10^3/uL (0.1-0.8); Basophils % 0.2; Eosinophils % 0.9; HCT 45.8 % (40.0-50.0); HGB 14.9 g/dL (13.5-17.5); Immature Grans % 1.2; Lymphocytes % 17.3; MCH 29.3 pg (27.0-33.0); MCHC 32.5 % (32.0-36.0); MCV 90.2 fL (80-95); MPV 10.9 fL (8.0-11.0); Monocytes % 4.7; Neutrophils % 75.7; Nucleated RBC 0 %; Platelet Count 354 10^3/uL (130-400); RBC 5.08 10^6/uL (4.36-5.78); RDW 14.2 % (11.8-14.1); RDW-SD 46.8 fL; WBC 13.65 10^3/uL (4.4-10.8)
[2021-07-30 07:59] LABS: Absolute Neutrophil Count 10.33 10^3/uL (1.2-6.7)
[2021-07-30 08:20] LABS: ALT 54 U/L (16-63); AST 28 U/L (15-37); Albumin 3.9 g/dL (3.4-5.0); Alkaline Phosphatase 106 U/L (46-116); Anion Gap 6.1 mmol/L (3-11); BUN 17 mg/dL (7-18); Bilirubin, Total 0.4 mg/dL (0.2-1.0); CO2 30.9 mmol/L (21.0-32.0); CREATININE 0.9 mg/dL (0.70-1.30); Calcium 8.6 mg/dL (8.5-10.1); Chloride 102 mmol/L (98-107); Glucose 156 mg/dL (74-106); Magnesium 2.1 mg/dL (1.8-2.4); Potassium 3.8 mmol/L (3.5-5.1); Sodium 139 mmol/L (136-145); Total Protein 7.5 g/dL (6.4-8.2)
[2021-08-01] MEDS: Normal Saline Flush 10 ML SYR IVP (07:42)
[2021-08-01 07:55] LABS: Absolute Basophil Count 0.03 10^3/uL (0.0-0.2); Absolute Eosinophil Count 0.17 10^3/uL (0.0-0.7); Absolute Lymphocyte Count 2.16 10^3/uL (1.2-3.4); Absolute Monocyte Count 0.69 10^3/uL (0.1-0.8); Absolute Neutrophil Count 11.32 10^3/uL (1.2-6.7); Basophils % 0.2; Eosinophils % 1.2; HCT 43.4 % (40.0-50.0); HGB 13.9 g/dL (13.5-17.5); Immature Grans % 0.7; Lymphocytes % 14.9; MCH 29.5 pg (27.0-33.0); MCV 92.1 fL (80-95); MPV 10.9 fL (8.0-11.0); Monocytes % 4.8; Neutrophils % 78.2; Nucleated RBC 0 %; Platelet Count 337 10^3/uL (130-400); RBC 4.71 10^6/uL (4.36-5.78); RDW 14.3 % (11.8-14.1); RDW-SD 47.8 fL; WBC 14.47 10^3/uL (4.4-10.8)
--- NOTE | 2021-08-01 08:00 | RT.EKG_ITS ---
APPROVED REPORT Exam: Resting ECG Reason for Exam: acute promyelocytic leukemia in remission, check QTc Patient Location: O HR:74 bpm ECG Measurements Heart Rate 74 AXIS WI 153 P 47 QRSd 103 QRS 10 QT 377 T 45 QTc 418 Conclusion Sinus rhythm...normal P axis, V-rate 60- 99 ST elev, probable normal early repol pattern...ST elevation, age<55 Normal Electrocardiogram
[2021-08-01 08:03] LABS: ALT 40 U/L (16-63); AST 15 U/L (15-37); Albumin 3.7 g/dL (3.4-5.0); Alkaline Phosphatase 108 U/L (46-116); Anion Gap 6.1 mmol/L (3-11); BUN 18 mg/dL (7-18); Bilirubin, Total 0.4 mg/dL (0.2-1.0); CO2 29.9 mmol/L (21.0-32.0); CREATININE 0.8 mg/dL (0.70-1.30); Calcium 8.5 mg/dL (8.5-10.1); Chloride 103 mmol/L (98-107); Glucose 147 mg/dL (74-106); Magnesium 1.9 mg/dL (1.8-2.4); Potassium 3.6 mmol/L (3.5-5.1); Sodium 139 mmol/L (136-145)
== END 2021-08-02 23:59 | disposition home or self-care (01) ==
LOC: INF 02:49
PROVIDERS: Visit Provider Internal Medicine Hematology & Oncology
DX: C92.41 Acute promyelocytic leukemia, in remission (principal)
CPT/HCPCS: 36591; 80053; 87635; 83735; 85025

== ENCOUNTER 2021-08-08 07:50 | Outpatient (CLI) | payer MEDICAID, SELFPAY ==
--- NOTE | 2021-08-08 07:45 | RT.EKG_ITS ---
APPROVED REPORT Exam: Resting ECG Reason for Exam: ACUTE PROMYELOCYTIC LEUKEMIA IN REMISSION Patient Location: O HR:79 bpm ECG Measurements Heart Rate 79 AXIS [place] 140 P 41 QRSd 99 QRS 2 QT 364 T 44 QTc 419 Conclusion Sinus rhythm...normal P axis, V-rate 60- 99 Normal Electrocardiogram
== END 2021-08-08 07:51 | disposition home or self-care (01) ==
LOC: RT 07:51
PROVIDERS: Visit Provider Internal Medicine Hematology & Oncology
DX: C92.41 Acute promyelocytic leukemia, in remission (principal)
CPT/HCPCS: 93005; 93010

== ENCOUNTER 2021-08-15 04:33 | Outpatient (CLI) | payer MEDICAID, SELFPAY ==
--- NOTE | 2021-08-15 07:45 | RT.EKG_ITS ---
APPROVED REPORT Exam: Resting ECG Reason for Exam: MEDICATION Patient Location: O HR:81 bpm ECG Measurements Heart Rate 81 AXIS MT 146 P 44 QRSd 97 QRS 5 QT 376 T 48 QTc 436 Conclusion Sinus rhythm...normal P axis, V-rate 60- 99 Normal Electrocardiogram
== END 2021-08-15 04:34 | disposition home or self-care (01) ==
PROVIDERS: Visit Provider Internal Medicine Hematology & Oncology
DX: C92.41 Acute promyelocytic leukemia, in remission (principal)
CPT/HCPCS: 93005; 93010

== ENCOUNTER 2021-08-22 01:24 | Outpatient (RCR) | payer MEDICAID, SELFPAY ==
[2021-08-06] MEDS: Normal Saline Flush 10 ML SYR IVP (07:46)
[2021-08-06 08:02] LABS: Abs Immature Grans 0.08 10^3/uL (0.0-0.06); Absolute Basophil Count 0.04 10^3/uL (0.0-0.2); Absolute Eosinophil Count 0.31 10^3/uL (0.0-0.7); Absolute Lymphocyte Count 1.55 10^3/uL (1.2-3.4); Absolute Monocyte Count 0.41 10^3/uL (0.1-0.8); Basophils % 0.4; HGB 13.9 g/dL (13.5-17.5); Immature Grans % 0.8; Lymphocytes % 14.9; MCH 29.4 pg (27.0-33.0); MCHC 31.6 % (32.0-36.0); MPV 10.8 fL (8.0-11.0); Monocytes % 3.9; Nucleated RBC 0 %; Platelet Count 333 10^3/uL (130-400); RBC 4.73 10^6/uL (4.36-5.78); RDW-SD 51.6 fL; WBC 10.39 10^3/uL (4.4-10.8)
[2021-08-06 08:16] LABS: ALT 51 U/L (16-63); AST 26 U/L (15-37); Albumin 3.8 g/dL (3.4-5.0); Alkaline Phosphatase 87 U/L (46-116); Anion Gap 6.4 mmol/L (3-11); BUN 15 mg/dL (7-18); Bilirubin, Total 0.4 mg/dL (0.2-1.0); CO2 30.6 mmol/L (21.0-32.0); Calcium 8.6 mg/dL (8.5-10.1); Chloride 105 mmol/L (98-107); Glucose 116 mg/dL (74-106); Magnesium 2.2 mg/dL (1.8-2.4); Potassium 4.2 mmol/L (3.5-5.1); Sodium 142 mmol/L (136-145)
[2021-08-08] MEDS: Normal Saline Flush 10 ML SYR IVP (07:57)
[2021-08-08 08:09] LABS: Abs Immature Grans 0.04 10^3/uL (0.0-0.06); Absolute Basophil Count 0.03 10^3/uL (0.0-0.2); Absolute Eosinophil Count 0.34 10^3/uL (0.0-0.7); Absolute Lymphocyte Count 1.18 10^3/uL (1.2-3.4); Absolute Monocyte Count 0.33 10^3/uL (0.1-0.8); Absolute Neutrophil Count 6.61 10^3/uL (1.2-6.7); Basophils % 0.4; HCT 42.6 % (40.0-50.0); HGB 13.6 g/dL (13.5-17.5); Immature Grans % 0.5; Lymphocytes % 13.8; MCH 29.5 pg (27.0-33.0); MCHC 31.9 % (32.0-36.0); MCV 92.4 fL (80-95); MPV 11.1 fL (8.0-11.0); Monocytes % 3.9; Neutrophils % 77.4; Nucleated RBC 0 %; Platelet Count 289 10^3/uL (130-400); RBC 4.61 10^6/uL (4.36-5.78); RDW 15.2 % (11.8-14.1); RDW-SD 51.7 fL; WBC 8.53 10^3/uL (4.4-10.8)
[2021-08-08 08:20] LABS: ALT 43 U/L (16-63); AST 17 U/L (15-37); Albumin 3.6 g/dL (3.4-5.0); Alkaline Phosphatase 81 U/L (46-116); BUN 20 mg/dL (7-18); Bilirubin, Total 0.5 mg/dL (0.2-1.0); Calcium 8.4 mg/dL (8.5-10.1); Chloride 106 mmol/L (98-107); Glucose 151 mg/dL (74-106); Magnesium 1.9 mg/dL (1.8-2.4); Potassium 4.2 mmol/L (3.5-5.1); Sodium 142 mmol/L (136-145); Total Protein 6.7 g/dL (6.4-8.2)
[2021-08-13 07:59] LABS: Abs Immature Grans 0.03 10^3/uL (0.0-0.06); Absolute Basophil Count 0.04 10^3/uL (0.0-0.2); Absolute Eosinophil Count 0.44 10^3/uL (0.0-0.7); Absolute Lymphocyte Count 1.47 10^3/uL (1.2-3.4); Absolute Monocyte Count 0.43 10^3/uL (0.1-0.8); Absolute Neutrophil Count 4.46 10^3/uL (1.2-6.7); Basophils % 0.6; Eosinophils % 6.4; HCT 43.1 % (40.0-50.0); HGB 13.9 g/dL (13.5-17.5); Immature Grans % 0.4; Lymphocytes % 21.4; MCH 29.5 pg (27.0-33.0); MCHC 32.3 % (32.0-36.0); MCV 91.5 fL (80-95); MPV 11.4 fL (8.0-11.0); Monocytes % 6.3; Neutrophils % 64.9; Nucleated RBC 0 %; Platelet Count 284 10^3/uL (130-400); RBC 4.71 10^6/uL (4.36-5.78); RDW 15.5 % (11.8-14.1); RDW-SD 52.1 fL; WBC 6.87 10^3/uL (4.4-10.8)
[2021-08-13 08:14] LABS: ALT 33 U/L (16-63); AST 17 U/L (15-37); Alkaline Phosphatase 85 U/L (46-116); Anion Gap 7.3 mmol/L (3-11); BUN 17 mg/dL (7-18); Bilirubin, Total 0.5 mg/dL (0.2-1.0); CO2 29.7 mmol/L (21.0-32.0); CREATININE 1.1 mg/dL (0.70-1.30); Calcium 8.6 mg/dL (8.5-10.1); Chloride 103 mmol/L (98-107); Glucose 164 mg/dL (74-106); Magnesium 2.1 mg/dL (1.8-2.4); Potassium 4.1 mmol/L (3.5-5.1); Sodium 140 mmol/L (136-145)
[2021-08-13] MEDS: Normal Saline Flush 10 ML SYR IVP (08:55)
[2021-08-15] MEDS: Normal Saline Flush 10 ML SYR IVP (08:13)
[2021-08-15 08:14] LABS: Abs Immature Grans 0.03 10^3/uL (0.0-0.06); Absolute Basophil Count 0.03 10^3/uL (0.0-0.2); Absolute Eosinophil Count 0.32 10^3/uL (0.0-0.7); Absolute Lymphocyte Count 1.17 10^3/uL (1.2-3.4); Absolute Monocyte Count 0.46 10^3/uL (0.1-0.8); Absolute Neutrophil Count 3.67 10^3/uL (1.2-6.7); Basophils % 0.5; Eosinophils % 5.6; HCT 43.5 % (40.0-50.0); HGB 13.7 g/dL (13.5-17.5); Immature Grans % 0.5; Lymphocytes % 20.6; MCH 29.3 pg (27.0-33.0); MCHC 31.5 % (32.0-36.0); MCV 93.1 fL (80-95); MPV 11.3 fL (8.0-11.0); Monocytes % 8.1; Neutrophils % 64.7; Nucleated RBC 0 %; Platelet Count 290 10^3/uL (130-400); RBC 4.67 10^6/uL (4.36-5.78); RDW 15.6 % (11.8-14.1); RDW-SD 53.5 fL; WBC 5.68 10^3/uL (4.4-10.8)
[2021-08-15 08:33] LABS: ALT 24 U/L (16-63); AST 14 U/L (15-37); Albumin 3.8 g/dL (3.4-5.0); Alkaline Phosphatase 93 U/L (46-116); Anion Gap 5.3 mmol/L (3-11); BUN 17 mg/dL (7-18); Bilirubin, Total 0.5 mg/dL (0.2-1.0); CO2 29.7 mmol/L (21.0-32.0); CREATININE 0.8 mg/dL (0.70-1.30); Calcium 8.7 mg/dL (8.5-10.1); Chloride 106 mmol/L (98-107); Glucose 118 mg/dL (74-106); Magnesium 2.1 mg/dL (1.8-2.4); Potassium 4.1 mmol/L (3.5-5.1); Sodium 141 mmol/L (136-145)
== END 2021-09-02 23:59 | disposition home or self-care (01) ==
LOC: INF 01:24
PROVIDERS: Visit Provider Internal Medicine Hematology & Oncology
DX: C92.41 Acute promyelocytic leukemia, in remission (principal); Z45.2 Encounter for adjustment and management of vascular access device
CPT/HCPCS: 36591; 80053; 83735; 85025

== ENCOUNTER 2021-09-05 07:53 | Outpatient (CLI) | payer MEDICAID, SELFPAY ==
--- NOTE | 2021-09-05 07:45 | RT.EKG_ITS ---
APPROVED REPORT Exam: Resting ECG Reason for Exam: leukemia Patient Location: O HR:74 bpm ECG Measurements Heart Rate 74 AXIS TN 148 P 41 QRSd 102 QRS -7 QT 373 T 51 QTc 413 Conclusion Sinus rhythm...normal P axis, V-rate 60- 99 Normal Electrocardiogram
== END 2021-09-05 07:54 | disposition home or self-care (01) ==
LOC: RT 07:54
PROVIDERS: Visit Provider Internal Medicine Hematology & Oncology
DX: C92.41 Acute promyelocytic leukemia, in remission (principal)
CPT/HCPCS: 93005; 93010

== ENCOUNTER 2021-09-19 01:23 | Outpatient (RCR) | payer MEDICAID, SELFPAY ==
[2021-09-05] MEDS: Heparin 500 UNITS/5 ML SYRINGE IV (07:40)
[2021-09-05 08:07] LABS: Absolute Basophil Count 0.06 10^3/uL (0.0-0.2); Absolute Eosinophil Count 0.34 10^3/uL (0.0-0.7); Absolute Lymphocyte Count 2.05 10^3/uL (1.2-3.4); Absolute Monocyte Count 0.59 10^3/uL (0.1-0.8); Absolute Neutrophil Count 6.03 10^3/uL (1.2-6.7); Basophils % 0.7; Eosinophils % 3.7; HCT 43.8 % (40.0-50.0); HGB 14.3 g/dL (13.5-17.5); Immature Grans % 1.1; Lymphocytes % 22.4; MCH 29.6 pg (27.0-33.0); MCHC 32.6 % (32.0-36.0); MCV 90.7 fL (80-95); Monocytes % 6.4; Neutrophils % 65.7; Nucleated RBC 0 %; Platelet Count 241 10^3/uL (130-400); RBC 4.83 10^6/uL (4.36-5.78); RDW 14.7 % (11.8-14.1); RDW-SD 49.3 fL; WBC 9.17 10^3/uL (4.4-10.8)
[2021-09-05 08:25] LABS: ALT 24 U/L (16-63); AST 19 U/L (15-37); Albumin 3.8 g/dL (3.4-5.0); Alkaline Phosphatase 110 U/L (46-116); Anion Gap 8.8 mmol/L (3-11); BUN 12 mg/dL (7-18); Bilirubin, Total 0.4 mg/dL (0.2-1.0); CO2 30.2 mmol/L (21.0-32.0); Calcium 8.6 mg/dL (8.5-10.1); Chloride 103 mmol/L (98-107); Glucose 153 mg/dL (74-106); Magnesium 1.9 mg/dL (1.8-2.4); Sodium 142 mmol/L (136-145)
[2021-09-05] MEDS: Normal Saline Flush 10 ML SYR IVP (08:55)
[2021-09-14] MEDS: Normal Saline Flush 10 ML SYR IVP (08:03)
[2021-09-14] MEDS: Heparin 500 UNITS/5 ML SYRINGE IV (08:03)
[2021-09-14 08:49] LABS: Mono Screening Negative (Negative)
== END 2021-10-02 23:59 | disposition home or self-care (01) ==
LOC: INF 01:23
PROVIDERS: Visit Provider Internal Medicine Hematology & Oncology
DX: C92.40 Acute promyelocytic leukemia, not having achieved remission (principal); Z45.2 Encounter for adjustment and management of vascular access device
CPT/HCPCS: 36591; 80053; 83735; 85025; 86308

== ENCOUNTER 2021-10-10 02:37 | Outpatient (CLI) | payer MEDICAID, SELFPAY ==
--- NOTE | 2021-10-10 08:00 | RT.EKG_ITS ---
APPROVED REPORT Exam: Resting ECG Reason for Exam: INFUSION Patient Location: O HR:76 bpm ECG Measurements Heart Rate 76 AXIS CO 148 P 40 QRSd 102 QRS 1 QT 357 T 38 QTc 403 Conclusion Sinus rhythm...normal P axis, V-rate 60- 99 ST elev, probable normal early repol pattern...ST elevation, age<55 Normal Electrocardiogram
== END 2021-10-10 02:38 | disposition home or self-care (01) ==
LOC: RT 02:37
PROVIDERS: Visit Provider Internal Medicine Hematology & Oncology
DX: C92.41 Acute promyelocytic leukemia, in remission (principal)
CPT/HCPCS: 93005; 93010

== ENCOUNTER 2021-10-17 11:51 | Outpatient (CLI) | payer MEDICAID, SELFPAY ==
--- NOTE | 2021-10-17 11:45 | RT.EKG_ITS ---
APPROVED REPORT Exam: Resting ECG Reason for Exam: C92.41 Patient Location: O HR:72 bpm ECG Measurements Heart Rate 72 AXIS GA 152 P 44 QRSd 102 QRS -6 QT 386 T 37 QTc 424 Conclusion Sinus rhythm...normal P axis, V-rate 60- 99
== END 2021-10-17 11:52 | disposition home or self-care (01) ==
PROVIDERS: Visit Provider Internal Medicine Hematology & Oncology
DX: C92.41 Acute promyelocytic leukemia, in remission (principal)
CPT/HCPCS: 93005; 93010

== ENCOUNTER 2021-10-24 07:52 | Outpatient (CLI) | payer MEDICAID, SELFPAY ==
--- NOTE | 2021-10-24 07:45 | RT.EKG_ITS ---
APPROVED REPORT Exam: Resting ECG Reason for Exam: C92.41 Patient Location: O HR:75 bpm ECG Measurements Heart Rate 75 AXIS MS 148 P 41 QRSd 103 QRS 1 QT 366 T 36 QTc 410 Conclusion Sinus rhythm...normal P axis, V-rate 60- 99
== END 2021-10-24 07:53 | disposition home or self-care (01) ==
LOC: RT 07:53
PROVIDERS: Visit Provider Internal Medicine Hematology & Oncology
DX: C92.41 Acute promyelocytic leukemia, in remission (principal)
CPT/HCPCS: 93005; 93010

== ENCOUNTER 2021-10-31 00:35 | Outpatient (RCR) | payer MEDICAID, SELFPAY ==
[2021-10-05 07:34] LABS: Abs Immature Grans 0.07 10^3/uL (0.0-0.06); Absolute Basophil Count 0.07 10^3/uL (0.0-0.2); Absolute Eosinophil Count 0.38 10^3/uL (0.0-0.7); Absolute Lymphocyte Count 1.83 10^3/uL (1.2-3.4); Absolute Monocyte Count 0.56 10^3/uL (0.1-0.8); Absolute Neutrophil Count 5.44 10^3/uL (1.2-6.7); Basophils % 0.8; Eosinophils % 4.6; HCT 42.4 % (40.0-50.0); HGB 13.8 g/dL (13.5-17.5); Immature Grans % 0.8; Lymphocytes % 21.9; MCH 29.9 pg (27.0-33.0); MCHC 32.5 % (32.0-36.0); MCV 91.8 fL (80-95); MPV 10.7 fL (8.0-11.0); Monocytes % 6.7; Neutrophils % 65.2; Nucleated RBC 0 %; Platelet Count 238 10^3/uL (130-400); RBC 4.62 10^6/uL (4.36-5.78); RDW 13.2 % (11.8-14.1); RDW-SD 44.7 fL; WBC 8.35 10^3/uL (4.4-10.8)
[2021-10-05] MEDS: Heparin 500 UNITS/5 ML SYRINGE IV (07:40)
[2021-10-05] MEDS: Normal Saline Flush 10 ML SYR IVP (07:40)
[2021-10-05 07:50] LABS: ALT 33 U/L (16-63); AST 16 U/L (15-37); Albumin 3.9 g/dL (3.4-5.0); Alkaline Phosphatase 92 U/L (46-116); Anion Gap 5.6 mmol/L (3-11); BUN 17 mg/dL (7-18); Bilirubin, Total 0.5 mg/dL (0.2-1.0); CO2 29.4 mmol/L (21.0-32.0); CREATININE 0.9 mg/dL (0.70-1.30); Calcium 8.5 mg/dL (8.5-10.1); Chloride 102 mmol/L (98-107); Glucose 156 mg/dL (74-106); Potassium 3.8 mmol/L (3.5-5.1); Sodium 137 mmol/L (136-145); Total Protein 6.9 g/dL (6.4-8.2)
[2021-10-10 07:52] LABS: Abs Immature Grans 0.05 10^3/uL (0.0-0.06); Absolute Basophil Count 0.07 10^3/uL (0.0-0.2); Absolute Lymphocyte Count 1.59 10^3/uL (1.2-3.4); Absolute Monocyte Count 0.76 10^3/uL (0.1-0.8); Absolute Neutrophil Count 6.09 10^3/uL (1.2-6.7); Basophils % 0.8; Eosinophils % 4.5; HCT 44.6 % (40.0-50.0); HGB 14.5 g/dL (13.5-17.5); Immature Grans % 0.6; Lymphocytes % 17.7; MCH 29.8 pg (27.0-33.0); MCHC 32.5 % (32.0-36.0); MCV 91.6 fL (80-95); MPV 10.4 fL (8.0-11.0); Monocytes % 8.5; Neutrophils % 67.9; Nucleated RBC 0 %; Platelet Count 259 10^3/uL (130-400); RBC 4.87 10^6/uL (4.36-5.78); RDW-SD 43.8 fL; WBC 8.96 10^3/uL (4.4-10.8)
[2021-10-10] MEDS: Normal Saline Flush 10 ML SYR IVP (08:05)
[2021-10-10 08:15] LABS: ALT 32 U/L (16-63); AST 15 U/L (15-37); Alkaline Phosphatase 93 U/L (46-116); Anion Gap 8.5 mmol/L (3-11); BUN 18 mg/dL (7-18); Bilirubin, Total 0.5 mg/dL (0.2-1.0); CO2 28.5 mmol/L (21.0-32.0); CREATININE 0.9 mg/dL (0.70-1.30); Calcium 8.5 mg/dL (8.5-10.1); Chloride 103 mmol/L (98-107); Glucose 100 mg/dL (74-106); Sodium 140 mmol/L (136-145); Total Protein 7.2 g/dL (6.4-8.2)
[2021-10-15] MEDS: Normal Saline Flush 10 ML SYR IVP (07:42)
[2021-10-15 07:53] LABS: Abs Immature Grans 0.03 10^3/uL (0.0-0.06); Absolute Basophil Count 0.05 10^3/uL (0.0-0.2); Absolute Eosinophil Count 0.19 10^3/uL (0.0-0.7); Absolute Monocyte Count 0.49 10^3/uL (0.1-0.8); Absolute Neutrophil Count 4.74 10^3/uL (1.2-6.7); Basophils % 0.7; Eosinophils % 2.7; HCT 40.6 % (40.0-50.0); HGB 13.1 g/dL (13.5-17.5); Immature Grans % 0.4; Lymphocytes % 21.4; MCH 29.6 pg (27.0-33.0); MCHC 32.3 % (32.0-36.0); MCV 91.9 fL (80-95); MPV 10.9 fL (8.0-11.0); Neutrophils % 67.8; Nucleated RBC 0 %; Platelet Count 273 10^3/uL (130-400); RBC 4.42 10^6/uL (4.36-5.78); RDW 12.9 % (11.8-14.1); RDW-SD 43.2 fL
[2021-10-15 08:06] LABS: ALT 48 U/L (16-63); AST 28 U/L (15-37); Albumin 3.7 g/dL (3.4-5.0); Alkaline Phosphatase 89 U/L (46-116); Anion Gap 7.1 mmol/L (3-11); BUN 13 mg/dL (7-18); Bilirubin, Total 0.4 mg/dL (0.2-1.0); CO2 29.9 mmol/L (21.0-32.0); CREATININE 0.9 mg/dL (0.70-1.30); Calcium 8.3 mg/dL (8.5-10.1); Chloride 104 mmol/L (98-107); Glucose 116 mg/dL (74-106); Magnesium 2.2 mg/dL (1.8-2.4); Potassium 4.2 mmol/L (3.5-5.1); Sodium 141 mmol/L (136-145); Total Protein 6.7 g/dL (6.4-8.2)
[2021-10-17] MEDS: Normal Saline Flush 10 ML SYR IVP (07:53)
[2021-10-17 08:17] LABS: Abs Immature Grans 0.04 10^3/uL (0.0-0.06); Absolute Basophil Count 0.05 10^3/uL (0.0-0.2); Absolute Eosinophil Count 0.31 10^3/uL (0.0-0.7); Absolute Lymphocyte Count 1.35 10^3/uL (1.2-3.4); Absolute Monocyte Count 0.44 10^3/uL (0.1-0.8); Absolute Neutrophil Count 4.56 10^3/uL (1.2-6.7); Basophils % 0.7; Eosinophils % 4.6; HCT 41.6 % (40.0-50.0); HGB 13.4 g/dL (13.5-17.5); Immature Grans % 0.6; MCH 29.8 pg (27.0-33.0); MCHC 32.2 % (32.0-36.0); MCV 92.4 fL (80-95); MPV 11.1 fL (8.0-11.0); Monocytes % 6.5; Neutrophils % 67.6; Nucleated RBC 0 %; Platelet Count 296 10^3/uL (130-400); RDW-SD 43.8 fL; WBC 6.75 10^3/uL (4.4-10.8)
[2021-10-17 08:31] LABS: ALT 40 U/L (16-63); AST 20 U/L (15-37); Albumin 3.8 g/dL (3.4-5.0); Alkaline Phosphatase 97 U/L (46-116); BUN 16 mg/dL (7-18); Bilirubin, Total 0.4 mg/dL (0.2-1.0); CREATININE 0.8 mg/dL (0.70-1.30); Calcium 8.4 mg/dL (8.5-10.1); Chloride 104 mmol/L (98-107); Glucose 102 mg/dL (74-106); Magnesium 2.1 mg/dL (1.8-2.4); Potassium 4.2 mmol/L (3.5-5.1); Sodium 140 mmol/L (136-145); Total Protein 7.1 g/dL (6.4-8.2)
[2021-10-22] MEDS: Normal Saline Flush 10 ML SYR IVP (07:48)
[2021-10-22 07:54] LABS: Abs Immature Grans 0.03 10^3/uL (0.0-0.06); Absolute Basophil Count 0.05 10^3/uL (0.0-0.2); Absolute Eosinophil Count 0.26 10^3/uL (0.0-0.7); Absolute Lymphocyte Count 1.55 10^3/uL (1.2-3.4); Absolute Monocyte Count 0.36 10^3/uL (0.1-0.8); Absolute Neutrophil Count 5.11 10^3/uL (1.2-6.7); Basophils % 0.7; Eosinophils % 3.5; HCT 40.7 % (40.0-50.0); HGB 13.1 g/dL (13.5-17.5); Immature Grans % 0.4; Lymphocytes % 21.1; MCH 30.1 pg (27.0-33.0); MCHC 32.2 % (32.0-36.0); MCV 93.6 fL (80-95); MPV 10.7 fL (8.0-11.0); Monocytes % 4.9; Neutrophils % 69.4; Nucleated RBC 0 %; Platelet Count 322 10^3/uL (130-400); RBC 4.35 10^6/uL (4.36-5.78); RDW 13.3 % (11.8-14.1); RDW-SD 45.8 fL; WBC 7.36 10^3/uL (4.4-10.8)
[2021-10-22 09:16] LABS: ALT 69 U/L (16-63); AST 44 U/L (15-37); Albumin 3.9 g/dL (3.4-5.0); Alkaline Phosphatase 101 U/L (46-116); Anion Gap 9.3 mmol/L (3-11); BUN 19 mg/dL (7-18); Bilirubin, Total 0.3 mg/dL (0.2-1.0); CO2 26.7 mmol/L (21.0-32.0); CREATININE 0.9 mg/dL (0.70-1.30); Calcium 8.4 mg/dL (8.5-10.1); Chloride 107 mmol/L (98-107); Glucose 155 mg/dL (74-106); Potassium 4.2 mmol/L (3.5-5.1); Sodium 143 mmol/L (136-145)
[2021-10-24] MEDS: Normal Saline Flush 10 ML SYR IVP (07:47)
[2021-10-24 08:03] LABS: Abs Immature Grans 0.03 10^3/uL (0.0-0.06); Absolute Basophil Count 0.04 10^3/uL (0.0-0.2); Absolute Eosinophil Count 0.21 10^3/uL (0.0-0.7); Absolute Lymphocyte Count 1.43 10^3/uL (1.2-3.4); Absolute Monocyte Count 0.45 10^3/uL (0.1-0.8); Basophils % 0.6; Eosinophils % 3.1; HCT 41.9 % (40.0-50.0); HGB 13.5 g/dL (13.5-17.5); Immature Grans % 0.4; Lymphocytes % 21.2; MCHC 32.2 % (32.0-36.0); MCV 93.1 fL (80-95); MPV 10.9 fL (8.0-11.0); Monocytes % 6.7; Nucleated RBC 0 %; Platelet Count 322 10^3/uL (130-400); RDW 13.3 % (11.8-14.1); RDW-SD 45.2 fL; WBC 6.76 10^3/uL (4.4-10.8)
[2021-10-24 08:19] LABS: ALT 65 U/L (16-63); AST 32 U/L (15-37); Alkaline Phosphatase 98 U/L (46-116); Anion Gap 4.3 mmol/L (3-11); BUN 13 mg/dL (7-18); Bilirubin, Total 0.3 mg/dL (0.2-1.0); CO2 29.7 mmol/L (21.0-32.0); CREATININE 0.8 mg/dL (0.70-1.30); Calcium 8.7 mg/dL (8.5-10.1); Chloride 105 mmol/L (98-107); Glucose 117 mg/dL (74-106); Magnesium 2.1 mg/dL (1.8-2.4); Potassium 4.2 mmol/L (3.5-5.1); Sodium 139 mmol/L (136-145); Total Protein 7.1 g/dL (6.4-8.2)
[2021-10-29] MEDS: Normal Saline Flush 10 ML SYR IVP (07:52)
[2021-10-29 07:56] LABS: Abs Immature Grans 0.03 10^3/uL (0.0-0.06); Absolute Basophil Count 0.05 10^3/uL (0.0-0.2); Absolute Eosinophil Count 0.42 10^3/uL (0.0-0.7); Absolute Monocyte Count 0.32 10^3/uL (0.1-0.8); Absolute Neutrophil Count 3.68 10^3/uL (1.2-6.7); Basophils % 0.8; Eosinophils % 6.8; HCT 42.1 % (40.0-50.0); HGB 13.7 g/dL (13.5-17.5); Immature Grans % 0.5; Lymphocytes % 27.4; MCH 30.2 pg (27.0-33.0); MCHC 32.5 % (32.0-36.0); MCV 92.9 fL (80-95); Monocytes % 5.2; Neutrophils % 59.3; Nucleated RBC 0 %; Platelet Count 317 10^3/uL (130-400); RBC 4.53 10^6/uL (4.36-5.78); RDW 13.4 % (11.8-14.1); RDW-SD 45.9 fL
[2021-10-29 08:14] LABS: ALT 49 U/L (16-63); AST 26 U/L (15-37); Albumin 3.9 g/dL (3.4-5.0); Alkaline Phosphatase 110 U/L (46-116); Anion Gap 7.5 mmol/L (3-11); BUN 12 mg/dL (7-18); Bilirubin, Total 0.3 mg/dL (0.2-1.0); CO2 28.5 mmol/L (21.0-32.0); CREATININE 0.8 mg/dL (0.70-1.30); Calcium 8.2 mg/dL (8.5-10.1); Chloride 104 mmol/L (98-107); Glucose 119 mg/dL (74-106); Sodium 140 mmol/L (136-145)
[2021-10-31] MEDS: Normal Saline Flush 10 ML SYR IVP (07:49)
[2021-10-31 08:10] LABS: Abs Immature Grans 0.03 10^3/uL (0.0-0.06); Absolute Basophil Count 0.06 10^3/uL (0.0-0.2); Absolute Eosinophil Count 0.53 10^3/uL (0.0-0.7); Absolute Lymphocyte Count 1.55 10^3/uL (1.2-3.4); Absolute Monocyte Count 0.42 10^3/uL (0.1-0.8); Absolute Neutrophil Count 4.45 10^3/uL (1.2-6.7); Basophils % 0.9; Eosinophils % 7.5; HGB 13.9 g/dL (13.5-17.5); Immature Grans % 0.4; MCHC 32.3 % (32.0-36.0); MCV 92.9 fL (80-95); MPV 11.3 fL (8.0-11.0); Neutrophils % 63.2; Nucleated RBC 0 %; Platelet Count 329 10^3/uL (130-400); RBC 4.63 10^6/uL (4.36-5.78); RDW 13.5 % (11.8-14.1); RDW-SD 46.1 fL; WBC 7.04 10^3/uL (4.4-10.8)
[2021-10-31 08:23] LABS: ALT 41 U/L (16-63); AST 20 U/L (15-37); Alkaline Phosphatase 117 U/L (46-116); Anion Gap 8.8 mmol/L (3-11); BUN 15 mg/dL (7-18); Bilirubin, Total 0.4 mg/dL (0.2-1.0); CO2 29.2 mmol/L (21.0-32.0); CREATININE 0.9 mg/dL (0.70-1.30); Calcium 8.5 mg/dL (8.5-10.1); Chloride 104 mmol/L (98-107); Glucose 163 mg/dL (74-106); Magnesium 2.1 mg/dL (1.8-2.4); Sodium 142 mmol/L (136-145); Total Protein 7.1 g/dL (6.4-8.2)
== END 2021-11-02 23:59 | disposition home or self-care (01) ==
LOC: INF 00:35
PROVIDERS: Visit Provider Internal Medicine Hematology & Oncology
DX: C92.41 Acute promyelocytic leukemia, in remission (principal); Z45.2 Encounter for adjustment and management of vascular access device
CPT/HCPCS: 36591; 80053; 83735; 85025

== ENCOUNTER 2021-10-31 07:56 | Outpatient (CLI) | payer MEDICAID, SELFPAY ==
--- NOTE | 2021-10-31 07:45 | RT.EKG_ITS ---
APPROVED REPORT Exam: Resting ECG Reason for Exam: Leukemia Patient Location: O HR:76 bpm ECG Measurements Heart Rate 76 AXIS WI 147 P 39 QRSd 100 QRS -6 QT 368 T 44 QTc 412 Conclusion Sinus rhythm...normal P axis, V-rate 60- 99 Normal Electrocardiogram
== END 2021-10-31 07:57 | disposition home or self-care (01) ==
PROVIDERS: Visit Provider Internal Medicine Hematology & Oncology
DX: C92.41 Acute promyelocytic leukemia, in remission (principal)
CPT/HCPCS: 93005; 93010

== ENCOUNTER 2021-12-03 01:21 | Outpatient (CLI) | payer MEDICAID, SELFPAY ==
[2021-12-03] MEDS: Normal Saline Flush 10 ML SYR IVP (07:44)
[2021-12-03 07:49] LABS: Abs Immature Grans 0.05 10^3/uL (0.0-0.06); Absolute Basophil Count 0.07 10^3/uL (0.0-0.2); Absolute Eosinophil Count 0.42 10^3/uL (0.0-0.7); Absolute Lymphocyte Count 2.28 10^3/uL (1.2-3.4); Absolute Monocyte Count 0.68 10^3/uL (0.1-0.8); Absolute Neutrophil Count 5.31 10^3/uL (1.2-6.7); Basophils % 0.8; Eosinophils % 4.8; HCT 43.9 % (40.0-50.0); HGB 14.4 g/dL (13.5-17.5); Immature Grans % 0.6; Lymphocytes % 25.9; MCH 29.9 pg (27.0-33.0); MCHC 32.8 % (32.0-36.0); MCV 91.1 fL (80-95); MPV 11.1 fL (8.0-11.0); Monocytes % 7.7; Neutrophils % 60.2; Nucleated RBC 0 %; Platelet Count 267 10^3/uL (130-400); RBC 4.82 10^6/uL (4.36-5.78); RDW 12.6 % (11.8-14.1); RDW-SD 41.9 fL; WBC 8.81 10^3/uL (4.4-10.8)
[2021-12-03 08:42] LABS: ALT 22 U/L (16-63); AST 13 U/L (15-37); Alkaline Phosphatase 95 U/L (46-116); Anion Gap 10.2 mmol/L (3-11); BUN 12 mg/dL (7-18); Bilirubin, Total 0.4 mg/dL (0.2-1.0); CO2 26.8 mmol/L (21.0-32.0); CREATININE 0.9 mg/dL (0.70-1.30); Calcium 8.6 mg/dL (8.5-10.1); Chloride 103 mmol/L (98-107); Glucose 98 mg/dL (74-106); Magnesium 1.8 mg/dL (1.8-2.4); Potassium 4.1 mmol/L (3.5-5.1); Sodium 140 mmol/L (136-145); Total Protein 7.1 g/dL (6.4-8.2)
== END 2021-12-03 01:22 | disposition home or self-care (01) ==
LOC: INF 01:21
PROVIDERS: Visit Provider Internal Medicine Hematology & Oncology
DX: Z45.2 Encounter for adjustment and management of vascular access device (principal); C92.41 Acute promyelocytic leukemia, in remission
CPT/HCPCS: 36591; 80053; 83735; 85025

== ENCOUNTER 2021-12-05 08:19 | Outpatient (CLI) | payer MEDICAID, SELFPAY ==
--- NOTE | 2021-12-05 08:15 | RT.EKG_ITS ---
APPROVED REPORT Exam: Resting ECG Reason for Exam: INFUSION TODAY Patient Location: O HR:77 bpm ECG Measurements Heart Rate 77 AXIS WV 159 P 40 QRSd 104 QRS 3 QT 363 T 38 QTc 412 Conclusion Sinus rhythm...normal P axis, V-rate 60- 99
== END 2021-12-05 08:20 | disposition home or self-care (01) ==
LOC: RT 08:21
PROVIDERS: Visit Provider Internal Medicine Hematology & Oncology
DX: C92.41 Acute promyelocytic leukemia, in remission (principal)
CPT/HCPCS: 93005; 93010

== ENCOUNTER 2021-12-12 07:47 | Outpatient (CLI) | payer MEDICAID, SELFPAY ==
--- NOTE | 2021-12-12 07:45 | RT.EKG_ITS ---
APPROVED REPORT Exam: Resting ECG Reason for Exam: INFUSION TODAY Patient Location: O HR:80 bpm ECG Measurements Heart Rate 80 AXIS WV 148 P 37 QRSd 99 QRS -4 QT 364 T 40 QTc 421 Conclusion Sinus rhythm...normal P axis, V-rate 60- 99 ST elev, probable normal early repol pattern...ST elevation, age<55 Normal Electrocardiogram
== END 2021-12-12 07:48 | disposition home or self-care (01) ==
LOC: RT 07:48
PROVIDERS: Visit Provider Internal Medicine Hematology & Oncology
DX: C92.41 Acute promyelocytic leukemia, in remission (principal)
CPT/HCPCS: 93005; 93010

== ENCOUNTER 2021-12-17 00:37 | Outpatient (RCR) | payer MEDICAID, SELFPAY ==
[2021-12-05] MEDS: Normal Saline Flush 10 ML SYR IVP (07:53)
[2021-12-05 08:03] LABS: Abs Immature Grans 0.04 10^3/uL (0.0-0.06); Absolute Basophil Count 0.04 10^3/uL (0.0-0.2); Absolute Eosinophil Count 0.14 10^3/uL (0.0-0.7); Absolute Lymphocyte Count 1.43 10^3/uL (1.2-3.4); Absolute Monocyte Count 0.65 10^3/uL (0.1-0.8); Absolute Neutrophil Count 6.05 10^3/uL (1.2-6.7); Basophils % 0.5; Eosinophils % 1.7; HCT 41.7 % (40.0-50.0); HGB 13.5 g/dL (13.5-17.5); Immature Grans % 0.5; Lymphocytes % 17.1; MCH 29.9 pg (27.0-33.0); MCHC 32.4 % (32.0-36.0); MCV 92.3 fL (80-95); Monocytes % 7.8; Neutrophils % 72.4; Nucleated RBC 0 %; Platelet Count 263 10^3/uL (130-400); RBC 4.52 10^6/uL (4.36-5.78); RDW 12.8 % (11.8-14.1); RDW-SD 43.6 fL; WBC 8.35 10^3/uL (4.4-10.8)
[2021-12-05 08:13] LABS: ALT 21 U/L (16-63); AST 16 U/L (15-37); Albumin 3.7 g/dL (3.4-5.0); Alkaline Phosphatase 98 U/L (46-116); Anion Gap 7.2 mmol/L (3-11); BUN 13 mg/dL (7-18); Bilirubin, Total 0.2 mg/dL (0.2-1.0); CO2 28.8 mmol/L (21.0-32.0); CREATININE 0.8 mg/dL (0.70-1.30); Calcium 8.3 mg/dL (8.5-10.1); Chloride 103 mmol/L (98-107); Glucose 117 mg/dL (74-106); Magnesium 1.7 mg/dL (1.8-2.4); Sodium 139 mmol/L (136-145); Total Protein 6.8 g/dL (6.4-8.2)
[2021-12-10] MEDS: Normal Saline Flush 10 ML SYR IVP (07:44)
[2021-12-10 07:47] LABS: Abs Immature Grans 0.03 10^3/uL (0.0-0.06); Absolute Basophil Count 0.03 10^3/uL (0.0-0.2); Absolute Eosinophil Count 0.35 10^3/uL (0.0-0.7); Absolute Lymphocyte Count 1.68 10^3/uL (1.2-3.4); Absolute Monocyte Count 0.47 10^3/uL (0.1-0.8); Absolute Neutrophil Count 5.11 10^3/uL (1.2-6.7); Basophils % 0.4; Eosinophils % 4.6; HGB 13.9 g/dL (13.5-17.5); Immature Grans % 0.4; Lymphocytes % 21.9; MCH 29.8 pg (27.0-33.0); MCHC 32.3 % (32.0-36.0); MCV 92.1 fL (80-95); Monocytes % 6.1; Neutrophils % 66.6; Nucleated RBC 0 %; Platelet Count 296 10^3/uL (130-400); RBC 4.67 10^6/uL (4.36-5.78); RDW 13.2 % (11.8-14.1); RDW-SD 44.1 fL; WBC 7.67 10^3/uL (4.4-10.8)
[2021-12-10 08:05] LABS: ALT 102 U/L (16-63); AST 55 U/L (15-37); Albumin 3.8 g/dL (3.4-5.0); Alkaline Phosphatase 101 U/L (46-116); Anion Gap 7.4 mmol/L (3-11); BUN 21 mg/dL (7-18); Bilirubin, Total 0.3 mg/dL (0.2-1.0); CO2 29.6 mmol/L (21.0-32.0); CREATININE 0.8 mg/dL (0.70-1.30); Calcium 8.3 mg/dL (8.5-10.1); Chloride 104 mmol/L (98-107); Glucose 101 mg/dL (74-106); Magnesium 1.8 mg/dL (1.8-2.4); Potassium 4.3 mmol/L (3.5-5.1); Sodium 141 mmol/L (136-145); Total Protein 7.1 g/dL (6.4-8.2)
[2021-12-12] MEDS: Normal Saline Flush 10 ML SYR IVP (07:44)
[2021-12-12 07:52] LABS: Abs Immature Grans 0.02 10^3/uL (0.0-0.06); Absolute Basophil Count 0.04 10^3/uL (0.0-0.2); Absolute Eosinophil Count 0.25 10^3/uL (0.0-0.7); Absolute Lymphocyte Count 1.52 10^3/uL (1.2-3.4); Absolute Monocyte Count 0.42 10^3/uL (0.1-0.8); Absolute Neutrophil Count 4.43 10^3/uL (1.2-6.7); Basophils % 0.6; Eosinophils % 3.7; HCT 44.8 % (40.0-50.0); HGB 14.4 g/dL (13.5-17.5); Immature Grans % 0.3; Lymphocytes % 22.8; MCH 29.5 pg (27.0-33.0); MCHC 32.1 % (32.0-36.0); MCV 91.8 fL (80-95); MPV 10.8 fL (8.0-11.0); Monocytes % 6.3; Neutrophils % 66.3; Nucleated RBC 0 %; Platelet Count 324 10^3/uL (130-400); RBC 4.88 10^6/uL (4.36-5.78); RDW 13.2 % (11.8-14.1); WBC 6.68 10^3/uL (4.4-10.8)
[2021-12-12 08:05] LABS: ALT 79 U/L (16-63); AST 46 U/L (15-37); Alkaline Phosphatase 116 U/L (46-116); Anion Gap 5.5 mmol/L (3-11); BUN 16 mg/dL (7-18); Bilirubin, Total 0.3 mg/dL (0.2-1.0); CO2 28.5 mmol/L (21.0-32.0); CREATININE 0.8 mg/dL (0.70-1.30); Calcium 8.7 mg/dL (8.5-10.1); Chloride 104 mmol/L (98-107); Glucose 105 mg/dL (74-106); Potassium 4.4 mmol/L (3.5-5.1); Sodium 138 mmol/L (136-145); Total Protein 7.5 g/dL (6.4-8.2)
== END 2021-12-31 23:59 | disposition home or self-care (01) ==
LOC: INF 00:37
PROVIDERS: Visit Provider Internal Medicine Hematology & Oncology
DX: C92.41 Acute promyelocytic leukemia, in remission (principal); Z45.2 Encounter for adjustment and management of vascular access device
CPT/HCPCS: 36591; 80053; 83735; 85025

== ENCOUNTER 2022-02-13 15:16 | Outpatient (CLI) | payer MEDICAID, SELFPAY ==
--- NOTE | 2022-02-13 13:35 | DI.MRI_ITS ---
Exam(s) MR BRAIN WO EXAM: MR BRAIN WO CLINICAL HISTORY: DIZZINESS/VERTIGO R42 HX CVA Z86.73, PROMYELOCYTOC LEUKEMIA NOW ON ANTI- TECHNIQUE: Multiplanar multisequence MRI of the brain was performed. COMPARISON: CT CT HEAD WO from 02/10/2021 MR MR BRAIN WO/W from 02/12/2021 FINDINGS: No intracranial hemorrhage, mass or infarct is seen. Previously noted medial left occipital infarct is no longer visible. No significant encephalomalacia. The ventricles are normal in size. Prior CT showed a questioned colloid cyst which is not evident on the current study. There are no abnormal high signal lesions in the white matter. The vascular flow voids appear intact. The orbits and pituitary are unremarkable as visualized. The sinuses and mastoid air cells are clear. IMPRESSION: No evidence mass or infarct. DATA REPOSITORY:
== END 2022-02-13 15:36 ==
PROVIDERS: Visit Provider Family Medicine
DX: R42 Dizziness and giddiness (principal); Z86.73 Personal history of transient ischemic attack (TIA), and cerebral infarction without residual deficits
CPT/HCPCS: 70551

== ENCOUNTER 2022-02-15 18:20 | Outpatient (CLI) | payer MEDICAID, SELFPAY ==
[2022-02-15 16:35] LABS: Abs Immature Grans 0.05 10^3/uL (0.0-0.06); Absolute Basophil Count 0.05 10^3/uL (0.0-0.2); Absolute Eosinophil Count 0.25 10^3/uL (0.0-0.7); Absolute Lymphocyte Count 2.33 10^3/uL (1.2-3.4); Absolute Monocyte Count 0.81 10^3/uL (0.1-0.8); Absolute Neutrophil Count 6.92 10^3/uL (1.2-6.7); Basophils % 0.5; Eosinophils % 2.4; HCT 43.5 % (40.0-50.0); HGB 14.6 g/dL (13.5-17.5); Immature Grans % 0.5; Lymphocytes % 22.4; MCH 29.8 pg (27.0-33.0); MCHC 33.6 % (32.0-36.0); MCV 88.8 fL (80-95); MPV 10.4 fL (8.0-11.0); Monocytes % 7.8; Neutrophils % 66.4; Platelet Count 290 10^3/uL (130-400); RDW 12.4 % (11.8-14.1); WBC 10.41 10^3/uL (4.4-10.8)
[2022-02-15 17:21] LABS: ALT 25 U/L (16-63); AST 17 U/L (15-37); Albumin 4.1 g/dL (3.4-5.0); Alkaline Phosphatase 97 U/L (46-116); Anion Gap 9.3 mmol/L (3-11); BUN 18 mg/dL (7-18); Bilirubin, Total 0.3 mg/dL (0.2-1.0); CO2 26.7 mmol/L (21.0-32.0); Calcium 8.8 mg/dL (8.5-10.1); Chloride 103 mmol/L (98-107); Glucose 118 mg/dL (74-106); Potassium 4.3 mmol/L (3.5-5.1); Sodium 139 mmol/L (136-145)
[2022-02-21 17:53] LABS: PMLR Result see interpretation; Specimen Type Peripheral blood
== END 2022-02-15 18:21 | disposition home or self-care (01) ==
LOC: LBO 18:21
PROVIDERS: Visit Provider Internal Medicine Hematology & Oncology
DX: C92.41 Acute promyelocytic leukemia, in remission (principal)
CPT/HCPCS: 36415; 80053; 81315; 85025

== ENCOUNTER 2022-07-10 04:28 | Outpatient (CLI) | payer MEDICAID, SELFPAY ==
[2022-07-10 07:36] LABS: Abs Immature Grans 0.04 10^3/uL (0.0-0.06); Absolute Basophil Count 0.06 10^3/uL (0.0-0.2); Absolute Eosinophil Count 0.47 10^3/uL (0.0-0.7); Absolute Lymphocyte Count 2.21 10^3/uL (1.2-3.4); Absolute Monocyte Count 0.71 10^3/uL (0.1-0.8); Absolute Neutrophil Count 4.96 10^3/uL (1.2-6.7); Basophils % 0.7; Eosinophils % 5.6; HCT 47.2 % (40.0-50.0); HGB 15.4 g/dL (13.5-17.5); Immature Grans % 0.5; Lymphocytes % 26.2; MCH 28.1 pg (27.0-33.0); MCHC 32.6 % (32.0-36.0); MCV 86 fL (80-95); MPV 10.5 fL (8.0-11.0); Monocytes % 8.4; Neutrophils % 58.6; Platelet Count 281 10^3/uL (130-400); RBC 5.48 10^6/uL (4.36-5.78); RDW 14.4 % (11.8-14.1); RDW-SD 45.6 fL; WBC 8.45 10^3/uL (4.4-10.8)
[2022-07-10 07:51] LABS: ALT 26 U/L (16-63); AST 12 U/L (15-37); Albumin 4.1 g/dL (3.4-5.0); Alkaline Phosphatase 101 U/L (46-116); BUN 18 mg/dL (7-18); Bilirubin, Total 0.5 mg/dL (0.2-1.0); Calcium 8.8 mg/dL (8.5-10.1); Chloride 102 mmol/L (98-107); Estimated GFR 93.42 (mL/min/1.73m2); Glucose 113 mg/dL (74-106); Potassium 4.4 mmol/L (3.5-5.1); Sodium 138 mmol/L (136-145); Total Protein 7.8 g/dL (6.4-8.2)
== END 2022-07-10 04:29 | disposition home or self-care (01) ==
LOC: LBO 04:28
PROVIDERS: Visit Provider Internal Medicine Hematology & Oncology
DX: C92.41 Acute promyelocytic leukemia, in remission (principal)
CPT/HCPCS: 36415; 80053; 85025

== ENCOUNTER 2022-08-16 15:05 | Emergency (ER) | payer MEDICAID, SELFPAY ==
--- NOTE | 2022-08-16 15:00 | RT.EKG_ITS ---
APPROVED REPORT Exam: Resting ECG Reason for Exam: dizziness Patient Location: E HR:82 bpm ECG Measurements Heart Rate 82 AXIS OH 150 P 40 QRSd 100 QRS -6 QT 352 T 48 QTc 411 Conclusion Sinus rhythm...normal P axis, V-rate 60- 99
[2022-08-16 15:13] VITALS: BP 139/74; PULSE 82; RESP 20; TEMP 36.6; O2SAT 95
[2022-08-16 15:19] VITALS: BP 139/74; PULSE 79; PULSE 81; RESP 13
[2022-08-16 15:22] VITALS: RESP 18
--- NOTE | 2022-08-16 15:30 | DI.RAD_ITS ---
Exam(s) XR CHEST 1V IN DI DEPT EXAM: XR CHEST 1V IN DI DEPT CLINICAL HISTORY: near syncope, nausea TECHNIQUE: 2D digital imaging was performed of the chest. One image was obtained. An AP view was ob tained. COMPARISON: CR,XR XR CHEST 2V PA LATERAL from 02/10/2021 FINDINGS: MEDIASTINUM: Normal. HEART: Normal. PULMONARY VASCULATURE: Normal. LUNGS: Clear. PLEURAL SPACE: No pleural effusion or pneumothorax. BONE:Within normal limits for the patient's age. OTHER FINDINGS:Normal. IMPRESSION: 1. No acute pulmonary findings. 2. Findings were discussed with Dr. Duarte at 4:30 p.m. on 08/16/2022. DATA REPOSITORY: RADIATION DOSE DELIVERED:
--- NOTE | 2022-08-16 15:30 | DI.CT_ITS ---
Exam(s) CT HEAD WO EXAM: CT HEAD WO CLINICAL HISTORY: NEar Syncope, nausea. TECHNIQUE: Imaging Protocol: Axial computed tomography images with coronal and sagittal reformatted images were created and reviewed COMPARISON: CT CT HEAD WO from 02/10/2021 FINDINGS: Ventricles and Extra axial spaces: Normal in size and morphology for the patient's age. Hemorrhage: None. Cerebral parenchyma: Normal. 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 Ventricular size appears stable. Midline shift: None. Brainstem/Cerebellum: Normal. Calvarium: Normal. Visualized Paranasal sinuses/Mastoids: Clear. Soft Tissues: Unremarkable. IMPRESSION: 1. No acute intracranial process. 2. Findings were discussed with Dr. Duarte 4:30 p.m. on 08/16/2022. RADIATION DOSE DELIVERED: 806.94mGy.cm Total DLP DATA REPOSITORY: All CT scans at this facility are submitted to the National Radiology Data Registry (NRDR) Dose Index Registry (DIR) with the [employer] (ACR). RADIATION OPTIMIZATION: All CT scans at this facility use at least one of these dose optimization te chniques: automated exposure control; mA and/or kV adjustment per patient size (includes targeted exa ms where dose is matched to clinical indication); or iterative reconstruction.
[2022-08-16 15:31] VITALS: BP 146/72; PULSE 72; PULSE 75; RESP 16
--- NOTE | 2022-08-16 15:37 | ED.GENADUL_ITS ---
Discharge Plan Disposition Patient Disposition: HOME Condition: Improving Discharge Details Clinical Impression: Acute dehydration, Hyponatremia Primary Care Provider: Deyvi Mario ED Provider: Ricardo Duarte Discharge Instructions Instructions: Dehydration (ED), Hyponatremia (ED) Additional Instructions: Home to rest. Continue small, frequent sips of fluids and may liberalize salty snacks in the diet over the next 48 hours. Follow-up with regular doctor if not improving in 2 to 3 days time. Return return to the ER for any acute concern. Medical Decision Making 47-year-old male with a previous history of leukemia, status postchemotherapy and now in remission. Followed by [facility] heme-onc. States he had a normal routine day in which he put up a small tent for work purposes. Following this while driving he had abrupt onset of nausea, diaphoresis and lightheadedness. Did not have syncope. He safely stop the car. Denies chest pain or shortness of breath. States it lasted approximate 20 minutes and is now resolved. He did not have vomiting but still has some persistent nausea. Vital signs are normal, screening EKG unremarkable. He has an unremarkable neurologic exam. Nonetheless, differential diagnosis is broad including intracranial process, arrhythmia, coronary syndrome, dehydration, electrolyte abnormality or blood dyscrasia. IV access was established, patient was given 500 cc normal saline fluid bolus. He was referred for labs and imaging. CT of the head and chest x-ray are unremarkable. His labs are most notable for mild prerenal dehydration and hyponatremia that is mild as well. He is improved following fluids. He is observed without further evidence of near syncope. Discussed with the patient and his further observation on the role of a second troponin. He is also sound decision-making capacity and declines further observation in the ER. I do feel this is reasonable the patient is stable to discharge home at this time. HPI General Mode of arrival: ambulatory . Date/Time Provider Initiated Documentation: 08/16/22 15:21 . Limitations to Documentation: no limitations . Information obtained by: patient and family . History of Present Illness 47 year old M presents to the emergency department with the chief complaint of Abrupt onset nausea, diaphoresis, lightheadedness, described as moderate, and is localized to the head. Patient reports no radiation. Patient started experiencing this minute(s) and it has been now resolved. No relieving factors improve symptom(s), No exacerbating factors reported . Patient notes diaphoresis; denies chest pain, cough, fever/chills, headaches, loss of appetite, seizure, shortness of breath and syncope. Patient did receive the following treatments prior to arrival, none Related Data Allergies Allergy/AdvReac Type Severity Reaction Status Date / Time ANIMALS Allergy Intermediate Uncoded 05/10/21 09:19 General Stated Complaint: Dizzy/Sync TJ: 3 Review of Systems Narrative: States he had similar episodes while in chemotherapy treatment, now in remission, has recently felt well. PFSH All Active Problems (Updated 08/16/22 @ 16:36 by Ricardo Duarte MD) Chest pain (Acute) Pericarditis (Acute) Acute dehydration (Acute) Hyponatremia (Acute) White matter abnormality on MRI of brain (Acute) Abnormal CT of the abdomen (Acute) Lung nodules (Acute) Chronic diarrhea (Acute) Neutropenic fever (Acute) Discharge planning issues (Acute) DVT prophylaxis (Acute) Foot pain, right (Acute) Neutropenia (Acute) Colloid cyst of brain (Acute) Pancytopenia (Acute) Headache (Acute) Dizziness (Acute) Arm pain, left (Acute) Chest pain (Acute) a. Etiology not identified. History of Surgical Procedure (Chronic) a. Cholecystectomy. b. Two hernia surgeries. Stenosis, pylorus (Chronic) a. As an . Medical History (Updated 08/16/22 @ 16:36 by Ricardo Duarte MD) Obstructive sleep apnea Surgical History History of hernia repair History of tonsillectomy Hx of cholecystectomy Social History Smoking/Tobacco Use Status: Former Tobacco Use Smoking risk assessment performed?: Yes Alcohol Intake: current Alcohol Intake frequency: a few times a month Drug use: Never Substance use type: does not use Do you feel safe at home: Yes Do you feel safe in your relationship?: Yes Exam Narrative Exam Narrative: GEN: awake, alert, oriented 3. Pleasant, well groomed, interactive. HEAD: Normocephalic, atraumatic ENT: Mucous membranes moist, oropharynx unremarkable, External ear exam unremarkable EYES: PERRL, EOMI NECK: Full ROM, no ELIZABETH, no menigismus CHEST/RESP: Nontender, clear to auscultation bilateral, no wheeze/rhonchi/rales CARDIOVASCULAR: RRR, no murmur, rub adriana. 2+ Rad pulse bilateral ABDOMEN: Soft, nontender, no mass. +Bowel sounds EXT: Full ROM, no edema, no rash Neuro: Grossly normal neurologic exam, conversant, interactive. Cranial nerves II through XII intact, [id number] intact. Psych: Speech fluent, thoughts congruent, affect normal Course Vital Signs Vital signs: Vital Signs Temperature 36.6 C 08/16/22 15:13 Pulse 82 08/16/22 15:13 Respiratory Rate 20 08/16/22 15:13 Blood Pressure 139/74 08/16/22 15:13 Pulse Oximetry 95 08/16/22 15:13 Temperature 36.6 C 08/16/22 15:13 Temperature Source Temporal Artery Scan 08/16/22 15:13 Pulse 82 08/16/22 15:13 Respiratory Rate 18 08/16/22 15:22 Respiratory Effort Non-Labored 08/16/22 15:22 Respiratory Depth Normal 08/16/22 15:22 Blood Pressure 139/74 08/16/22 15:13 Pulse Oximetry 95 08/16/22 15:13 Pain Level 0 08/16/22 15:13 PAWSS Have you Been Recently Intoxicated or Drunk Within the Last 30 days?: No Have you Ever Experienced Previous Episodes of Alcohol Withdrawal?: No Have you ever Experienced Withdrawal Seizures?: No Have you ever Experienced Delirium Tremens(DT)s?: No Have you ever undergone Alcohol Rehabilitation Treatment (i.e, inpt ot outpatient treatment programs)?: No Have you ever Experienced Blackouts?: No Have you ever Combined Alcohol with other Downers within the last 90 days?: No Have you ever Combined Alcohol with any other Substance of Abuse during the last 90 days?: No Result: 0
[2022-08-16 15:46] VITALS: BP 126/78; PULSE 71; PULSE 76; RESP 12
[2022-08-16 16:14] LABS: Abs Immature Grans 0.02 10^3/uL (0.0-0.06); Absolute Basophil Count 0.06 10^3/uL (0.0-0.2); Absolute Eosinophil Count 0.29 10^3/uL (0.0-0.7); Absolute Lymphocyte Count 2.27 10^3/uL (1.2-3.4); Absolute Neutrophil Count 4.72 10^3/uL (1.2-6.7); Basophils % 0.7; Eosinophils % 3.6; HCT 44.5 % (40.0-50.0); HGB 14.8 g/dL (13.5-17.5); Immature Grans % 0.2; Lymphocytes % 27.8; MCH 28.8 pg (27.0-33.0); MCHC 33.3 % (32.0-36.0); MCV 87 fL (80-95); Monocytes % 9.8; Neutrophils % 57.9; Platelet Count 261 10^3/uL (130-400); RBC 5.13 10^6/uL (4.36-5.78); RDW 13.3 % (11.8-14.1); RDW-SD 42.5 fL; WBC 8.16 10^3/uL (4.4-10.8)
[2022-08-16 16:18] LABS: ALT 29 U/L (16-63); AST 22 U/L (15-37); Albumin 4.2 g/dL (3.4-5.0); Alkaline Phosphatase 91 U/L (46-116); Anion Gap 3.7 mmol/L (3-11); BUN 22 mg/dL (7-18); Bilirubin, Total 0.5 mg/dL (0.2-1.0); CO2 30.3 mmol/L (21.0-32.0); CREATININE 1.4 mg/dL (0.70-1.30); Calcium 8.7 mg/dL (8.5-10.1); Chloride 101 mmol/L (98-107); Estimated GFR 62.39 (mL/min/1.73m2); Glucose 91 mg/dL (74-106); Magnesium 1.9 mg/dL (1.8-2.4); Potassium 4.5 mmol/L (3.5-5.1); Sodium 135 mmol/L (136-145); Total Protein 7.6 g/dL (6.4-8.2); Troponin I < 50 ng/L (<or=60)
[2022-08-16] MEDS: Normal Saline 500 ML IV (16:38)
[2022-08-16 17:28] VITALS: BP 132/72; RESP 16; O2SAT 100
== END 2022-08-16 17:27 | disposition home or self-care (01) ==
PROVIDERS: Emergency Provider Emergency Medicine; PCP Family Medicine
DX: E86.0 Dehydration (principal); E87.1 Hypo-osmolality and hyponatremia
CPT/HCPCS: 36415; 80053; 93005; 96360; 99284; 70450; 71045; 83735; 84484; 85025; 93010

== ENCOUNTER 2022-08-22 03:45 | Outpatient (CLI) | payer MEDICAID, SELFPAY ==
[2022-08-22 07:40] LABS: Abs Immature Grans 0.04 10^3/uL (0.0-0.06); Absolute Basophil Count 0.07 10^3/uL (0.0-0.2); Absolute Eosinophil Count 0.37 10^3/uL (0.0-0.7); Absolute Lymphocyte Count 2.46 10^3/uL (1.2-3.4); Absolute Monocyte Count 0.71 10^3/uL (0.1-0.8); Absolute Neutrophil Count 4.96 10^3/uL (1.2-6.7); Basophils % 0.8; Eosinophils % 4.3; HCT 48.4 % (40.0-50.0); HGB 15.8 g/dL (13.5-17.5); Immature Grans % 0.5; Lymphocytes % 28.6; MCHC 32.6 % (32.0-36.0); MCV 89 fL (80-95); MPV 10.4 fL (8.0-11.0); Monocytes % 8.2; Neutrophils % 57.6; Platelet Count 243 10^3/uL (130-400); RBC 5.45 10^6/uL (4.36-5.78); RDW 13.1 % (11.8-14.1); RDW-SD 42.7 fL; WBC 8.61 10^3/uL (4.4-10.8)
[2022-08-22 08:43] LABS: ALT 23 U/L (16-63); AST 13 U/L (15-37); Albumin 4.2 g/dL (3.4-5.0); Alkaline Phosphatase 99 U/L (46-116); Anion Gap 8.8 mmol/L (3-11); BUN 15 mg/dL (7-18); Bilirubin, Total 0.4 mg/dL (0.2-1.0); CO2 30.2 mmol/L (21.0-32.0); Calcium 9.1 mg/dL (8.5-10.1); Chloride 102 mmol/L (98-107); Estimated GFR 93.42 (mL/min/1.73m2); Glucose 102 mg/dL (74-106); Potassium 4.8 mmol/L (3.5-5.1); Sodium 141 mmol/L (136-145); Total Protein 8.1 g/dL (6.4-8.2)
[2022-08-24 13:43] LABS: PMLR Result see interpretation; Specimen Type EDTA Whole Blood
== END 2022-08-22 03:46 | disposition home or self-care (01) ==
PROVIDERS: PCP Family Medicine; Visit Provider Internal Medicine Hematology & Oncology
DX: C92.41 Acute promyelocytic leukemia, in remission (principal)
CPT/HCPCS: 36415; 80053; 81315; 85025

== ENCOUNTER 2022-10-08 16:38 | Outpatient (CLI) | payer MEDICAID, SELFPAY ==
[2022-10-08 16:18] LABS: Abs Immature Grans 0.05 10^3/uL (0.0-0.06); Absolute Basophil Count 0.06 10^3/uL (0.0-0.2); Absolute Eosinophil Count 0.36 10^3/uL (0.0-0.7); Absolute Lymphocyte Count 2.73 10^3/uL (1.2-3.4); Absolute Monocyte Count 0.79 10^3/uL (0.1-0.8); Absolute Neutrophil Count 5.52 10^3/uL (1.2-6.7); Basophils % 0.6; Eosinophils % 3.8; HCT 46.2 % (40.0-50.0); HGB 15.3 g/dL (13.5-17.5); Immature Grans % 0.5; Lymphocytes % 28.7; MCH 29.6 pg (27.0-33.0); MCHC 33.1 % (32.0-36.0); MCV 89 fL (80-95); MPV 10.3 fL (8.0-11.0); Monocytes % 8.3; Neutrophils % 58.1; Platelet Count 249 10^3/uL (130-400); RBC 5.17 10^6/uL (4.36-5.78); RDW 12.3 % (11.8-14.1); RDW-SD 40.5 fL; WBC 9.51 10^3/uL (4.4-10.8)
[2022-10-08 16:33] LABS: ALT 27 U/L (16-63); AST 19 U/L (15-37); Albumin 4.3 g/dL (3.4-5.0); Alkaline Phosphatase 82 U/L (46-116); Anion Gap 6.2 mmol/L (3-11); BUN 17 mg/dL (7-18); Bilirubin, Total 0.4 mg/dL (0.2-1.0); CO2 31.8 mmol/L (21.0-32.0); Chloride 102 mmol/L (98-107); Estimated GFR 93.42 (mL/min/1.73m2); Glucose 85 mg/dL (74-106); Potassium 4.2 mmol/L (3.5-5.1); Sodium 140 mmol/L (136-145); Total Protein 7.9 g/dL (6.4-8.2)
[2022-10-11 15:01] LABS: PMLR Result see interpretation
== END 2022-10-08 16:39 | disposition home or self-care (01) ==
LOC: LBO 16:39
PROVIDERS: PCP Family Medicine; Visit Provider Nurse Practitioner Adult Health
DX: C92.41 Acute promyelocytic leukemia, in remission (principal)
CPT/HCPCS: 36415; 80053; 81315; 85025

== ENCOUNTER 2022-12-05 16:00 | Outpatient (REF) | payer MEDICAID, SELFPAY ==
[2022-12-05 18:56] LABS: Calculated LDL 99 mg/dL (<100); Cholesterol 154 mg/dL (<200); HDL Cholesterol 34 mg/dL (40-60); Triglyceride 106 mg/dL (<150)
== END 2022-12-05 16:01 | disposition home or self-care (01) ==
LOC: NCHCN 16:00
PROVIDERS: PCP Family Medicine; Visit Provider Nurse Practitioner Family
DX: E78.5 Hyperlipidemia, unspecified (principal); F41.8 Other specified anxiety disorders; Z71.89 Other specified counseling; Z86.73 Personal history of transient ischemic attack (TIA), and cerebral infarction without residual deficits
CPT/HCPCS: 80061

== ENCOUNTER 2022-12-24 11:26 | Emergency (ER) | payer MEDICAID, SELFPAY ==
--- NOTE | 2022-12-24 11:30 | RT.EKG_ITS ---
APPROVED REPORT Exam: Resting ECG Reason for Exam: dizzy Patient Location: E HR:68 bpm ECG Measurements Heart Rate 68 AXIS IN 151 P 46 QRSd 105 QRS 7 QT 366 T 57 QTc 389 Conclusion Sinus rhythm...normal P axis, V-rate 60- 99 - --___ Normal sinus rhythm at a rate of 68. Interventricular conduction delay. IN and QTc within normal li mits. No acute injury pattern. Compared to prior dated August 2022 QRS has prolonged slightly. No acute abnormalities. No change compared to prior.
[2022-12-24 11:35] VITALS: BP 140/85; PULSE 83; RESP 17; TEMP 36.8; O2SAT 97
[2022-12-24 11:38] VITALS: RESP 15
--- NOTE | 2022-12-24 12:00 | DI.MRI_ITS ---
Exam(s) MR ANGIO BRAIN WO CLINICAL HISTORY: dizziness, hx cva w similar symptoms. TECHNIQUE: Multiplanar multisequence MRA of the brain was performed. COMPARISON: Comparison MRI brain 02/13/2022. FINDINGS: Carotid Arteries: No aneurysm, occlusion or significant stenosis. Anterior Cerebral Arteries: Right: No aneurysm, occlusion or significant stenosis. Left: No aneurysm, occlusion or significant stenosis. Middle Cerebral Arteries: Right: No aneurysm, occlusion or significant stenosis. Left: No aneurysm, occlusion or significant stenosis. Posterior Cerebral Arteries: Right: No aneurysm, occlusion or significant stenosis. Left: No aneurysm, occlusion or significant stenosis. Vertebral Arteries: Right: No aneurysm, occlusion or significant stenosis. Left: No aneurysm, occlusion or significant stenosis. Basilar Artery: No aneurysm, occlusion or significant stenosis. IMPRESSION: 1. Normal MRA examination of the [place]. 2. Findings were discussed with Gurdeep Kumar on 12/24/2022. DATA REPOSITORY:
--- NOTE | 2022-12-24 12:00 | DI.MRI_ITS ---
Exam(s) MR ANGIO NECK WO EXAM: MR ANGIO NECK WO CLINICAL HISTORY: dizziness, hx cva w similar symptoms. TECHNIQUE: Multiplanar multisequence MRA of the Neck was performed. COMPARISON: MR MR BRAIN WO from 02/13/2022 FINDINGS: Common Carotid: Right: No dissection, occlusion or significant stenosis. Left: No dissection, occlusion or significant stenosis. External Carotid: Right: No evidence of occlusion or significant stenosis. Left: No evidence of occlusion or significant stenosis. Internal Carotid: Right: No dissection, occlusion or significant stenosis. Left: No dissection, occlusion or significant stenosis. Vertebral Artery: Right: No dissection, occlusion or significant stenosis. Left: No dissection, occlusion or significant stenosis. The visualized paraspinal soft tissues are unremarkable. IMPRESSION: 1. No evidence of dissection, occlusion or significant stenosis. 2. Findings were discussed with Gurdeep Kumar on 12/24/2022. DATA REPOSITORY:
--- NOTE | 2022-12-24 12:00 | DI.MRI_ITS ---
Exam(s) MR BRAIN WO EXAM: MR BRAIN WO CLINICAL HISTORY: Dizziness, history of CVA TECHNIQUE: Multiplanar multisequence MRI of the brain was performed. COMPARISON: MR MR BRAIN WO from 02/13/2022 FINDINGS: VENTRICLES AND EXTRA AXIAL SPACES: Normal in size and morphology for the patient's age. MIDLINE SHIFT: None. CEREBRAL PARENCHYMA: No focus of restricted diffusion to suggest acute infarct. No space-occupying le saul identified. HEMORRHAGE: None. BRAINSTEM/CEREBELLUM: Normal. CALVARIUM: Normal. VISUALIZED PARANASAL SINUSES/MASTOIDS:Clear. [place] OF STREET: Normal flow void. PITUITARY GLAND: Unremarkable. OTHER FINDINGS: None. IMPRESSION: 1. No acute abnormality. No evidence of an intracranial mass or acute infarct. 2. Findings were discussed with Gurdeep Kumar on 12/24/2022. DATA REPOSITORY:
--- NOTE | 2022-12-24 12:14 | ED.GENADUL_ITS ---
Discharge Plan Disposition Patient Disposition: Home Condition: Stable Discharge Details Clinical Impression: Dizziness Primary Care Provider: Deyvi Mario ED Provider: Gurdeep Kumar Home Meds and New Rx's Prescriptions: No Action No Known Home Meds Discharge Instructions Instructions: Dizziness (ED) Additional Instructions: Please continue to take your meclizine as needed for dizziness. Your MRI imaging was negative for any findings noted today so I suspect potential vertigo given your history but please continue to monitor your symptoms and if you notice any new or significant worsening symptoms return to the emergency department for reassessment. Otherwise please follow-up with your primary care provider next week for recheck and further referrals or testing as needed. Referrals: Deyvi Mario [Primary Care Provider] - 1 week Discharge Data Discharge Date/Time-TO BE ENTERED AT DEPARTURE: 12/24/22 14:49 Medical Decision Making Patient presenting to the emergency department for chief complaint of dizziness and left vision changes. Patient reports that he has history of leukemia and did have a stroke with similar symptoms in the past. He also does have history of vertigo but states this is completely different than his standard vertigo. Symptom onset was 5 AM this morning and no precipitating factors or contributing symptoms are noted by patient. He does state recently at eye appointment they saw a small clot in the back of his left eye. Patient denies any pain or discomfort, chest pain, shortness of breath, syncope. Beyond patient reporting dizziness with head movement or position patient has no nystagmus, normal neurological exam, normal extremity strength and sensation along with pulse. Hints exam does not reveal any obvious findings. Patient is outside the window for thrombolytics but I do feel that we should check patient's labs along with perform MRI imaging given his history of CVA with similar but not as severe presenting symptoms. Did offer patient Valium pending results but he states that while at rest having dizziness is controllable and would rather hold off on medication. I do feel that this is appropriate. Reviewed labs and CBC is unremarkable and all values within normal limits, CMP is also unremarkable with all labs within normal limits. Patient is negative for troponin. Spoke to radiologist in regards to MRI imaging which MRI and MRI imaging of the brain and MRA of the neck were reported as negative. Reassessed patient and he states no change in his condition. Given offered further medication which he refused at this time. Patient states he will continue to take the meclizine he has at home and follow-up with primary care provider. After discussion of diagnosis and plan of care patient has no further needs, questions, or concerns and states clear understanding to return to the emergency department for any worsening symptoms. This documentation was generated using [employer] system, please disregard any oddities of phrase or misspellings. HPI General Mode of arrival: ambulatory . Date/Time Provider Initiated Documentation: 12/24/22 11:26 . Limitations to Documentation: no limitations . Information obtained by: patient and RN notes reviewed . History of Present Illness 47 year old M presents to the emergency department with the chief complaint of Dizziness, left vision changes, described as mild, moderate and similar to prior episodes, Quality is described as other (Denies pain or discomfort), Patient started experiencing this hour(s) (6) and it has been constant. Immobilization improves symptom(s), Movement worsens symptoms . Patient notes no other symptoms.. Patient did receive the following treatments prior to arrival, none Related Data Home Medications Medication Instructions Recorded Confirmed Unknown [No Known Home Meds] 12/24/22 12/24/22 Allergies Allergy/AdvReac Type Severity Reaction Status Date / Time ANIMALS Allergy Intermediate Uncoded 12/24/22 11:38 General Stated Complaint: Dizzy/Sync TJ: 3 Review of Systems Constitutional Constitutional: Denies chills, Denies fever(s), Denies headache(s), Denies malaise and Denies weakness Eyes Eyes: Reports change in vision and Denies loss of vision ENT Ears, Nose, Mouth, and Throat: Reports dizziness, Denies ear discharge, Denies otalgia, Denies headache(s), Denies neck pain and Reports disequilibrium Cardiovascular Cardiovascular: Denies chest pain, Denies syncope and Denies dyspnea Respiratory Respiratory: Denies dyspnea Gastrointestinal Gastrointestinal: Denies abdominal pain, Reports nausea and Denies vomiting Musculoskeletal Musculoskeletal: Denies abnormal gait, Denies neck pain and Denies numbness Neurologic Neurologic: Reports as per HPI, Denies abnormal gait, Denies confusion, Reports dizziness, Denies syncope, Denies headache(s), Denies localized weakness, Denies loss of vision, Denies numbness, Reports disequilibrium and Denies weakness Psychiatric Psychiatric: Denies confusion PFSH All Active Problems (Updated 12/24/22 @ 14:40 by Gurdeep Kumar NP) Chest pain (Acute) Pericarditis (Acute) White matter abnormality on MRI of brain (Acute) Abnormal CT of the abdomen (Acute) Lung nodules (Acute) Chronic diarrhea (Acute) Neutropenic fever (Acute) Discharge planning issues (Acute) DVT prophylaxis (Acute) Foot pain, right (Acute) Neutropenia (Acute) Colloid cyst of brain (Acute) Pancytopenia (Acute) Headache (Acute) Dizziness (Acute) Arm pain, left (Acute) Chest pain (Acute) a. Etiology not identified. History of Surgical Procedure (Chronic) a. Cholecystectomy. b. Two hernia surgeries. Stenosis, pylorus (Chronic) a. As an . Medical History (Updated 12/24/22 @ 14:40 by Gurdeep Kumar NP) Obstructive sleep apnea Surgical History History of hernia repair History of tonsillectomy Hx of cholecystectomy Social History Smoking/Tobacco Use Status: Former Tobacco Use Smoking risk assessment performed?: Yes Alcohol Intake: current Alcohol Intake frequency: a few times a month Drug use: Never Substance use type: does not use Do you feel safe at home: Yes Do you feel safe in your relationship?: Yes Exam Const General: cooperative, healthy appearing, no acute distress and well groomed Orientation: alert, awake and oriented x3 HENMT Head: normal to inspection Ears: hearing grossly normal bilaterally and TM's normal bilaterally Mouth: oral mucosae normal and moist mucous membranes Throat: posterior oropharynx normal Eyes Visual Zaman: normal visual zaman by confrontation Alignment and Position: alignment normal Periorbital: periorbital findings normal Eyelids: eyelids normal Sclera: sclerae normal Cornea: corneas normal Pupils: PERRL EOM: EOM intact bilaterally Neck Neck: normal visual inspection, full ROM, no lymphadenopathy and no meningeal signs Resp Effort & Inspection: normal respiratory effort and able to speak in complete sentences Auscultation: clear to auscultation bilaterally Cardio Rate: regular rate Rhythm: regular rhythm Heart Sounds: S1 normal and S2 normal Neuro General: patient alert, patient awake, patient oriented x3, gait normal, tone normal, moves all extremities, CN's II-XI intact bilaterally and not confused Cognition: normal cognition Speech: speech normal Motor: muscle tone normal throughout, strength 5/5 throughout, no pronator drift, no movement abnormalities noted and no fasciculations Sensory Exam: no sensory deficits noted Coordination: Romberg test normal, Does not sway with eyes open, rapid alternating movement UE normal and rapid alternating movement LE normal Course Vital Signs Vital signs: Vital Signs Temperature 36.8 C 12/24/22 11:35 Pulse 83 12/24/22 11:35 Respiratory Rate 17 12/24/22 11:35 Blood Pressure 140/85 12/24/22 11:35 Pulse Oximetry 97 12/24/22 11:35 Temperature 36.8 C 12/24/22 11:35 Temperature Source Oral 12/24/22 11:35 Pulse 83 12/24/22 11:35 Respiratory Rate 15 12/24/22 11:38 Respiratory Effort Normal 12/24/22 11:38 Respiratory Depth Normal 12/24/22 11:38 Respiratory Pattern Normal 12/24/22 11:38 Blood Pressure 140/85 12/24/22 11:35 Blood Pressure Position Sitting 12/24/22 11:35 Pulse Oximetry 97 12/24/22 11:35 Oxygen Delivery Method Room Air 12/24/22 11:35 Oxygen Flow Rate 0 12/24/22 11:35 Pain Level 2 12/24/22 11:35
[2022-12-24 12:48] LABS: Abs Immature Grans 0.04 10^3/uL (0.0-0.06); Absolute Basophil Count 0.05 10^3/uL (0.0-0.2); Absolute Eosinophil Count 0.18 10^3/uL (0.0-0.7); Absolute Lymphocyte Count 2.27 10^3/uL (1.2-3.4); Absolute Monocyte Count 0.62 10^3/uL (0.1-0.8); Absolute Neutrophil Count 5.69 10^3/uL (1.2-6.7); Basophils % 0.6; HCT 47.1 % (40.0-50.0); HGB 15.8 g/dL (13.5-17.5); Immature Grans % 0.5; Lymphocytes % 25.6; MCH 29.4 pg (27.0-33.0); MCHC 33.5 % (32.0-36.0); MCV 88 fL (80-95); MPV 10.7 fL (8.0-11.0); Neutrophils % 64.3; Platelet Count 279 10^3/uL (130-400); RBC 5.37 10^6/uL (4.36-5.78); RDW 12.4 % (11.8-14.1); RDW-SD 39.5 fL; WBC 8.85 10^3/uL (4.4-10.8)
[2022-12-24 13:02] LABS: PTT Activated 25.6 sec (21.5-31.9); Prothrombin Time 9.7 sec (9.3-11.0)
[2022-12-24 13:13] LABS: ALT 21 U/L (16-63); AST 17 U/L (15-37); Albumin 4.2 g/dL (3.4-5.0); Alkaline Phosphatase 73 U/L (46-116); Anion Gap 8.1 mmol/L (3-11); BUN 15 mg/dL (7-18); Bilirubin, Total 0.4 mg/dL (0.2-1.0); CO2 30.9 mmol/L (21.0-32.0); CREATININE 0.9 mg/dL (0.70-1.30); Calcium 8.9 mg/dL (8.5-10.1); Chloride 101 mmol/L (98-107); Estimated GFR 106.01 (mL/min/1.73m2); Glucose 99 mg/dL (74-106); Magnesium 1.9 mg/dL (1.8-2.4); Potassium 4.1 mmol/L (3.5-5.1); Sodium 140 mmol/L (136-145); Total Protein 7.4 g/dL (6.4-8.2); Troponin I < 50 ng/L (<or=60)
[2022-12-24 14:47] VITALS: BP 116/67; PULSE 75; RESP 16; TEMP 36.6; O2SAT 97
--- NOTE | 2022-12-24 16:07 | NUR.NOTE ---
Nursing Note: Referral faxed to PCP for dizzy/DORCAS.
== END 2022-12-24 14:49 | disposition home or self-care (01) ==
PROVIDERS: Emergency Provider Nurse Practitioner Family; PCP Family Medicine
DX: R42 Dizziness and giddiness (principal); H53.8 Other visual disturbances; Z86.73 Personal history of transient ischemic attack (TIA), and cerebral infarction without residual deficits
CPT/HCPCS: 36415; 70544; 70547; 80053; 93005; 99285; 70551; 83735; 84484; 85025; 85610; 85730; 93010; 99284

== ENCOUNTER 2023-01-13 17:24 | Outpatient (CLI) | payer MEDICAID, SELFPAY ==
[2023-01-13 14:59] LABS: Abs Immature Grans 0.03 10^3/uL (0.0-0.06); Absolute Basophil Count 0.06 10^3/uL (0.0-0.2); Absolute Eosinophil Count 0.22 10^3/uL (0.0-0.7); Absolute Lymphocyte Count 2.57 10^3/uL (1.2-3.4); Absolute Monocyte Count 0.54 10^3/uL (0.1-0.8); Absolute Neutrophil Count 6.12 10^3/uL (1.2-6.7); Basophils % 0.6; Eosinophils % 2.3; HCT 45.4 % (40.0-50.0); Immature Grans % 0.3; Lymphocytes % 26.9; MCH 29.6 pg (27.0-33.0); MCV 90 fL (80-95); MPV 10.6 fL (8.0-11.0); Monocytes % 5.7; Neutrophils % 64.2; Platelet Count 280 10^3/uL (130-400); RBC 5.07 10^6/uL (4.36-5.78); RDW 12.4 % (11.8-14.1); RDW-SD 40.5 fL; WBC 9.54 10^3/uL (4.4-10.8)
[2023-01-13 15:21] LABS: ALT 25 U/L (16-63); AST 17 U/L (15-37); Albumin 4.1 g/dL (3.4-5.0); Alkaline Phosphatase 69 U/L (46-116); Anion Gap 5.9 mmol/L (3-11); BUN 17 mg/dL (7-18); Bilirubin, Total 0.4 mg/dL (0.2-1.0); CO2 32.1 mmol/L (21.0-32.0); CREATININE 1.2 mg/dL (0.70-1.30); Calcium 8.7 mg/dL (8.5-10.1); Chloride 102 mmol/L (98-107); Estimated GFR 75.06 (mL/min/1.73m2); Glucose 95 mg/dL (74-106); Potassium 4.3 mmol/L (3.5-5.1); Sodium 140 mmol/L (136-145); Total Protein 7.3 g/dL (6.4-8.2)
[2023-01-16 16:31] LABS: PMLR Result see interpretation
== END 2023-01-13 17:25 | disposition home or self-care (01) ==
LOC: LBO 17:25
PROVIDERS: PCP Family Medicine; Visit Provider Nurse Practitioner Adult Health
DX: C92.41 Acute promyelocytic leukemia, in remission (principal)
CPT/HCPCS: 36415; 80053; 81315; 85025

== ENCOUNTER 2023-05-01 04:22 | Outpatient (CLI) | payer MEDICAID, SELFPAY ==
[2023-05-01 11:39] LABS: Abs Immature Grans 0.04 10^3/uL (0.0-0.06); Absolute Basophil Count 0.05 10^3/uL (0.0-0.2); Absolute Eosinophil Count 0.13 10^3/uL (0.0-0.7); Absolute Lymphocyte Count 2.22 10^3/uL (1.2-3.4); Absolute Monocyte Count 0.69 10^3/uL (0.1-0.8); Basophils % 0.6; Eosinophils % 1.6; HCT 46.6 % (40.0-50.0); HGB 15.9 g/dL (13.5-17.5); Immature Grans % 0.5; Lymphocytes % 26.7; MCH 29.8 pg (27.0-33.0); MCHC 34.1 % (32.0-36.0); MCV 87 fL (80-95); MPV 9.9 fL (8.0-11.0); Monocytes % 8.3; Neutrophils % 62.3; Platelet Count 286 10^3/uL (130-400); RBC 5.33 10^6/uL (4.36-5.78); RDW 12.5 % (11.8-14.1); RDW-SD 39.9 fL; WBC 8.33 10^3/uL (4.4-10.8)
[2023-05-01 12:02] LABS: ALT 30 U/L (16-63); AST 19 U/L (15-37); Albumin 4.2 g/dL (3.4-5.0); Alkaline Phosphatase 73 U/L (46-116); Anion Gap 8.5 mmol/L (3-11); BUN 23 mg/dL (7-18); Bilirubin, Total 0.6 mg/dL (0.2-1.0); CO2 28.5 mmol/L (21.0-32.0); Calcium 8.6 mg/dL (8.5-10.1); Chloride 99 mmol/L (98-107); Estimated GFR 93.42 (mL/min/1.73m2); Glucose 99 mg/dL (74-106); Potassium 4.4 mmol/L (3.5-5.1); Sodium 136 mmol/L (136-145); Total Protein 7.9 g/dL (6.4-8.2)
== END 2023-05-01 04:23 | disposition home or self-care (01) ==
LOC: LBO 04:22
PROVIDERS: PCP Family Medicine; Visit Provider Nurse Practitioner Adult Health
DX: C92.41 Acute promyelocytic leukemia, in remission (principal)
CPT/HCPCS: 36415; 80053; 85025

== ENCOUNTER 2023-06-02 02:39 | Outpatient (CLI) | payer MEDICAID, SELFPAY ==
[2023-06-02 12:41] LABS: Abs Immature Grans 0.03 10^3/uL (0.0-0.06); Absolute Basophil Count 0.06 10^3/uL (0.0-0.2); Absolute Eosinophil Count 0.28 10^3/uL (0.0-0.7); Absolute Lymphocyte Count 2.15 10^3/uL (1.2-3.4); Absolute Monocyte Count 0.62 10^3/uL (0.1-0.8); Absolute Neutrophil Count 5.41 10^3/uL (1.2-6.7); Basophils % 0.7; Eosinophils % 3.3; HCT 45.1 % (40.0-50.0); HGB 15.3 g/dL (13.5-17.5); Immature Grans % 0.4; Lymphocytes % 25.1; MCH 29.8 pg (27.0-33.0); MCHC 33.9 % (32.0-36.0); MCV 88 fL (80-95); MPV 10.2 fL (8.0-11.0); Monocytes % 7.3; Neutrophils % 63.2; Platelet Count 266 10^3/uL (130-400); RBC 5.13 10^6/uL (4.36-5.78); RDW 12.4 % (11.8-14.1); RDW-SD 40.1 fL; WBC 8.55 10^3/uL (4.4-10.8)
[2023-06-02 13:13] LABS: ALT 30 U/L (16-63); AST 22 U/L (15-37); Alkaline Phosphatase 69 U/L (46-116); Anion Gap 7.1 mmol/L (3-11); BUN 18 mg/dL (7-18); Bilirubin, Total 0.6 mg/dL (0.2-1.0); CO2 29.9 mmol/L (21.0-32.0); Calcium 8.9 mg/dL (8.5-10.1); Chloride 101 mmol/L (98-107); Estimated GFR 93.42 (mL/min/1.73m2); Glucose 94 mg/dL (74-106); Potassium 4.3 mmol/L (3.5-5.1); Sodium 138 mmol/L (136-145); Total Protein 7.3 g/dL (6.4-8.2)
[2023-06-05 17:31] LABS: PMLR Result see interpretation; Specimen Type EDTA Whole Blood
== END 2023-06-02 02:40 | disposition home or self-care (01) ==
PROVIDERS: PCP Family Medicine; Visit Provider Nurse Practitioner Adult Health
DX: C92.41 Acute promyelocytic leukemia, in remission (principal)
CPT/HCPCS: 36415; 80053; 81315; 85025

== ENCOUNTER 2023-10-09 04:54 | Outpatient (CLI) | payer BC, MEDICARE, SELFPAY ==
[2023-10-14 14:57] LABS: PMLR Result see interpretation; Specimen Type EDTA Whole Blood
== END 2023-10-09 04:55 | disposition home or self-care (01) ==
PROVIDERS: PCP Family Medicine; Visit Provider Nurse Practitioner Adult Health
DX: C92.41 Acute promyelocytic leukemia, in remission (principal)
CPT/HCPCS: 36415; 81315

== ENCOUNTER 2023-10-13 04:49 | Outpatient (CLI) | payer MEDICARE, BC, SELFPAY ==
[2023-10-13 09:41] LABS: Abs Immature Grans 0.03 10^3/uL (0.0-0.06); Absolute Basophil Count 0.06 10^3/uL (0.0-0.2); Absolute Eosinophil Count 0.31 10^3/uL (0.0-0.7); Absolute Lymphocyte Count 2.35 10^3/uL (1.2-3.4); Absolute Monocyte Count 0.66 10^3/uL (0.1-0.8); Absolute Neutrophil Count 5.38 10^3/uL (1.2-6.7); Basophils % 0.7; Eosinophils % 3.5; HCT 45.2 % (40.0-50.0); HGB 15.4 g/dL (13.5-17.5); Immature Grans % 0.3; Lymphocytes % 26.7; MCHC 34.1 % (32.0-36.0); MCV 88 fL (80-95); MPV 10.3 fL (8.0-11.0); Monocytes % 7.5; Neutrophils % 61.3; Platelet Count 267 10^3/uL (130-400); RBC 5.14 10^6/uL (4.36-5.78); RDW 12.1 % (11.8-14.1); RDW-SD 39.5 fL; WBC 8.79 10^3/uL (4.4-10.8)
[2023-10-13 10:02] LABS: ALT 27 U/L (16-63); AST 18 U/L (15-37); Albumin 3.9 g/dL (3.4-5.0); Alkaline Phosphatase 68 U/L (46-116); Anion Gap 8.1 mmol/L (3-11); BUN 16 mg/dL (7-18); Bilirubin, Total 0.4 mg/dL (0.2-1.0); CO2 29.9 mmol/L (21.0-32.0); Calcium 8.8 mg/dL (8.5-10.1); Chloride 101 mmol/L (98-107); Estimated GFR 92.84 (mL/min/1.73m2); Glucose 97 mg/dL (74-106); Potassium 4.3 mmol/L (3.5-5.1); Sodium 139 mmol/L (136-145); Total Protein 7.5 g/dL (6.4-8.2)
[2023-10-16 13:41] LABS: PMLR Result see interpretation; Specimen Type EDTA Whole Blood
== END 2023-10-13 04:50 | disposition home or self-care (01) ==
PROVIDERS: PCP Family Medicine; Visit Provider Internal Medicine Hematology & Oncology
DX: C92.41 Acute promyelocytic leukemia, in remission (principal)
CPT/HCPCS: 36415; 80053; 81315; 85025

== ENCOUNTER 2024-02-06 09:19 | Emergency (ER) | payer MEDICARE, SELFPAY ==
[2024-02-06 09:25] VITALS: BP 133/84; PULSE 75; RESP 18; TEMP 36.6; O2SAT 97
--- NOTE | 2024-02-06 10:12 | W.ED.GENAD ---
Discharge Plan Disposition Patient Disposition: Home Condition: Good Discharge Details Clinical Impression: Visual changes, Headache Primary Care Provider: Deyvi Mario ED Provider: Ely Cabrales Home Meds and New Rx's Prescriptions: No Action citalopram 10 mg tablet 10 mg PO DAILY Patient Comments: TAKE ONE TABLET BY MOUTH EVERY DAY Discharge Instructions Instructions: General Headache (ED) Additional Instructions: Take [id number]-[id number] medications for the concern here for any worsening symptoms such as difficult to hear speech. Memory use. You will receive a call from the neurologist WITH a follow up appointment. Call your primary care and your childbirth and infant care teacher at [facility] The CT scan is being sent to [facility] Return here for any new or worrisome symptoms. Discharge Data Discharge Physician: Ely Cabrales [facility] General Date/Time Provider Initiated Documentation: 02/06/24 10:12. Limitations to Documentation: no limitations. Information obtained by: patient. HPI Narrative: Time seen was 10:10 AM in bed 11. The patient is a 48-year-old male who is right-hand dominant who was diagnosed with a rare form of leukemia 2 years ago and is followed at [facility] He tells me that he had a small stroke with his initial presentation of his leukemia. He has mild residual memory issues and occasionally intermittent visual changes since his stroke. He wears reading glasses and had an eye exam approximately a month ago. He tells me that he woke up this morning with right-sided headache which was 7 out of 10 at maximum and is currently 5 out of 10 after taking Tylenol. He also states he feels slightly dizzy and has visual disturbances that come and go and last about 30 seconds. He states he has had 12 episodes today. He is also complaining of slight lightheadedness and an uneasy stomach and decreased appetite with nausea. He tells me he is concerned that he has recurrent leukemia. He was treated with arsenic and another medication but is not currently on any chemotherapeutic agents and does not know what type of leukemia he had. He is declining any more pain medication. He denies any aggravating or alleviating factors. He denies any stiffness or trauma. He describes his visual disturbance as darkening around the periphery of his vision. It is intermittent as described above. He denies any fevers or chills. No problems with his speech or gait. Related Data Home Medications Medication Instructions Recorded Confirmed citalopram 10 mg tablet 10 mg PO DAILY 02/06/24 02/06/24 Allergies Allergy/AdvReac Type Severity Reaction Status Date / Time ANIMALS Allergy Intermediate Anaphylaxis Uncoded 02/06/24 10:04 General Stated Complaint: Headache TJ: 3 Review of Systems Narrative: see hpi Exam Narrative Exam Narrative: The patient is a well-developed well-nourished male who is alert and oriented in no acute distress. His GCS is 15. He is normotensive. He is not tachycardic tachypneic or febrile. He has a normal O2 sat of 97% on room air. He is not clinically intoxicated. Const General: cooperative, healthy appearing, comfortable, no acute distress, well developed, well groomed and well hydrated Nutritional Appearance: average body habitus and well nourished Orientation: alert, awake and oriented x3 HENMT Head: normal to inspection, normocephalic and atraumatic Ears: hearing grossly normal bilaterally and external ears normal General nose exam: external nose normal, nares normal and no nasal discharge Face and sinus: normal facial exam, sinuses nontender and face symmetric Mouth: oral mucosae normal, lip normal, tongue normal, oropharynx normal, moist mucous membranes and other (Normal phonation. The patient is handling secretions.) Throat: posterior oropharynx normal and uvula midline Eyes General: appearance normal, both eyes and all related structures Eyelids: eyelids normal Conjunctivae: conjunctivae normal Sclera: sclerae normal Cornea: corneas normal Pupils: PERRL EOM: EOM intact bilaterally and No nystagmus Neck Neck: normal visual inspection, full ROM, no lymphadenopathy, no meningeal signs, trachea midline and supple Lymphatic: no lymphadenopathy noted Other: No carotid bruits Chest Chest: normal inspection of the chest Resp Effort & Inspection: normal respiratory effort, able to speak in complete sentences, no audible wheezes, no nasal flaring, no respiratory distress, no retractions, no stridor, not tachypneic, no tracheal deviation, no use of accessory muscles, No prolonged expiratory phase and other (Normal inspiratory to expiratory ratio.) Auscultation: clear to auscultation bilaterally, no rales, no rhonchi, no wheezes and no rubs Tactile Fremitus: tactile fremitus absent Cardio Jugular venous pressure: no JVD Palpation: normal PMI Rate: regular rate Rhythm: regular rhythm Heart Sounds: S1 normal, S2 normal, no gallops, no murmurs and no rubs GI Inspection: normal to inspection and non-distended Palpation: soft, no hepatosplenomegaly, no guarding and nontender Percussion: normal to percussion Auscultation: normal bowel sounds General: No CVA tenderness Back/Spine/Pelvis Back: no CVA tenderness and No back tenderness Cervical Spine: normal cervical lordosis, cervical ROM normal, No cervical muscular tenderness, No pain with cervical ROM, No cervical spinal tenderness and No step off deformity Thoracic/Lumbar Spine: thoracic and lumbar spine normal to inspection, No thoracic spinal tenderness and No lumbar spinal tenderness Pelvis: no pain with anterior-posterior compression and no pain with lateral compression Skin General skin exam: no rashes or lesions noted, turgor normal, no petechiae, no purpura and other (Skin is normal for ethnicity.) Lesions: no lesions Rashes: no rashes Trauma: no lacerations or abrasions Neuro General: patient alert, patient awake, patient oriented x3, moves all extremities, no meningeal signs, no focal motor deficits and CN's II-XI intact bilaterally Cranial Nerves: CN's II-XI intact bilaterally, PERRL, accommodation normal, EOM intact bilaterally, no nystagmus, facial strength normal, tongue midline, hearing normal and no nystagmus Cognition: normal cognition Speech: speech normal Gait: normal gait Motor: muscle tone normal throughout and strength 5/5 throughout Sensory Exam: no sensory deficits noted Pupils: Normal pupillary reactivity/response: bilateral Other: He has normal [id number]-zk-[id number] bilaterally. He has a negative Romberg sign. He has normal speech and gait. Motor function is 5 out of 5 in his upper and lower extremities. His reflexes are 1-2+ and symmetric in his bicep brachial radialis patella and ankle jerks. No Babinski is present. Cranial nerves II through XII are intact. No sensory deficits. Moving all of his extremities normally Extrem General: normal to inspection, full ROM, capillary refill normal, no clubbing, cyanosis or edema and no calf tenderness Psych Appearance: grossly normal Affect: normal affect Attitude: cooperative Thought Process: normal Thought Content: normal Insight: insight good Judgment: judgment good Other: The patient appears to have capacity make medical decisions. Course Vital Signs Vital signs: Vital Signs Temperature 36.6 C 02/06/24 09:25 Pulse 75 02/06/24 09:25 Respiratory Rate 18 02/06/24 09:25 Blood Pressure 133/84 02/06/24 09:25 Pulse Oximetry 97 02/06/24 09:25 Temperature 36.6 C 02/06/24 09:25 Temperature Source Temporal Artery Scan 02/06/24 09:25 Pulse 75 02/06/24 09:25 Respiratory Rate 18 02/06/24 09:25 Respiratory Effort Normal, Non-Labored 02/06/24 10:06 Blood Pressure 133/84 02/06/24 09:25 Blood Pressure Position Sitting 02/06/24 09:25 Pulse Oximetry 97 02/06/24 09:25 Oxygen Delivery Method Room Air 02/06/24 09:25 Oxygen Flow Rate 0 02/06/24 09:25 Pain Level 5 02/06/24 10:06 Medical Decision Making This is a 48-year-old [id number]-[id number] male who presents with a right-sided headache and visual disturbance. He has a history of leukemia and had a headache and a small stroke as his initial presentation. He has a normal neurologic exam. He is certainly could have a migraine although the visual disturbance is not typical of migraine. He has no history of migraines. My plan is to obtain blood work including a CBC and comprehensive metabolic panel noncontrast head CT to rule out bleeding. He does not have any evidence of meningitis including fever or stiff neck. He is declining any further medications. Medical Records Medical records reviewed: Yes I reviewed the patient's medical records. Imaging Data Radiologic Study: Imaging: CT Scan (Noncontrast head CT ) Radiologist's impression: No acute intracranial findings on this noninfused CT scan of the brain. Lab Data Lab results reviewed: Yes I reviewed the patient's lab results. Lab results narrative: I have compared his CBC today to his previous. He was neutropenic and today has a normal white count with normal differential. Quality:SDOH Health Related Social Needs: No Data to Display Critical Care Time Critical Care Time Critical Care Time: Yes Total Critical Care Time: 52 Attestation: This includes time at the bedside and updating the patient on the results of his labs and radiographs. Includes reviewing the patient's labs and comparing them to his previous labs. This includes review of radiographs and old records. PFSH All Active Problems (Updated 02/06/24 @ 11:55 by Ely Cabrales MD) Headache (Acute) Visual changes (Acute) Pericarditis (Acute) Chest pain (Acute) White matter abnormality on MRI of brain (Acute) Abnormal CT of the abdomen (Acute) Lung nodules (Acute) Chronic diarrhea (Acute) Neutropenic fever (Acute) Discharge planning issues (Acute) DVT prophylaxis (Acute) Foot pain, right (Acute) Neutropenia (Acute) Colloid cyst of brain (Acute) Pancytopenia (Acute) Headache (Acute) Dizziness (Acute) Arm pain, left (Acute) Chest pain (Acute) a. Etiology not identified. History of Surgical Procedure (Chronic) a. Cholecystectomy. b. Two hernia surgeries. Stenosis, pylorus (Chronic) a. As an infant. Medical History (Updated 02/06/24 @ 11:55 by Ely Cabrales MD) Obstructive sleep apnea Surgical History History of tonsillectomy History of hernia repair Hx of cholecystectomy Social History Smoking/Tobacco Use Status: Former Tobacco Use Smoking risk assessment performed?: Yes Alcohol Intake: current Alcohol Intake frequency: a few times a month Drug use: Never Substance use type: does not use Do you feel safe at home: Yes Do you feel safe in your relationship?: Yes
--- NOTE | 2024-02-06 10:30 | DI.CT_ITS ---
Exam(s) CT HEAD WO EXAM: CT HEAD WO CLINICAL HISTORY: headache and visual disturbance. TECHNIQUE: Imaging Protocol: Axial computed tomography images with coronal and sagittal reformatted images were created and reviewed COMPARISON: CT CT HEAD WO from 08/16/2022 MR MR BRAIN WO from 12/24/2022 MRI brain December 2022 also reviewed. FINDINGS: There are no skull fractures. There is no fluid in the visualized paranasal sinuses. There is no evidence of intracranial hemorrhage, mass effect, or shift of midline structures. There are no extra-axial fluid collections. The ventricles are not enlarged or shifted and there is no blo od within the ventricular system nor within the basal cisterns. IMPRESSION: No acute intracranial findings on this noninfused CT scan of the brain. RADIATION DOSE DELIVERED: Total DLP DATA REPOSITORY: All CT scans at this facility are submitted to the National Radiology Data Registry (NRDR) Dose Index Registry (DIR) with the [employer] (ACR). RADIATION OPTIMIZATION: All CT scans at this facility use at least one of these dose optimization te chniques: automated exposure control; mA and/or kV adjustment per patient size (includes targeted exa ms where dose is matched to clinical indication); or iterative reconstruction.
[2024-02-06 10:57] LABS: Abs Immature Grans 0.03 10^3/uL (0.0-0.06); Absolute Basophil Count 0.06 10^3/uL (0.0-0.2); Absolute Eosinophil Count 0.15 10^3/uL (0.0-0.7); Absolute Lymphocyte Count 1.75 10^3/uL (1.2-3.4); Absolute Monocyte Count 0.74 10^3/uL (0.1-0.8); Absolute Neutrophil Count 5.19 10^3/uL (1.2-6.7); Basophils % 0.8; Eosinophils % 1.9; HCT 45.6 % (40.0-50.0); HGB 15.4 g/dL (13.5-17.5); Immature Grans % 0.4; Lymphocytes % 22.1; MCHC 33.8 % (32.0-36.0); MCV 89 fL (80-95); MPV 10.4 fL (8.0-11.0); Monocytes % 9.3; Neutrophils % 65.5; Platelet Count 259 10^3/uL (130-400); RBC 5.14 10^6/uL (4.36-5.78); RDW 12.4 % (11.8-14.1); RDW-SD 40.4 fL; WBC 7.92 10^3/uL (4.4-10.8)
[2024-02-06 11:20] LABS: ALT 41 U/L (16-63); AST 26 U/L (15-37); Albumin 3.9 g/dL (3.4-5.0); Alkaline Phosphatase 61 U/L (46-116); Anion Gap 8.4 mmol/L (3-11); BUN 18 mg/dL (7-18); Bilirubin, Total 0.5 mg/dL (0.2-1.0); CO2 28.6 mmol/L (21.0-32.0); Calcium 8.7 mg/dL (8.5-10.1); Chloride 103 mmol/L (98-107); Estimated GFR 92.84 (mL/min/1.73m2); Glucose 92 mg/dL (74-106); Potassium 4.3 mmol/L (3.5-5.1); Sodium 140 mmol/L (136-145); Total Protein 7.4 g/dL (6.4-8.2)
--- NOTE | 2024-02-06 11:51 | NUR.NOTE ---
Nursing Note:PT needs follow up in one week with [facility] for right sided headache & visual disturbances. Mikayla, ED
== END 2024-02-06 11:59 | disposition home or self-care (01) ==
PROVIDERS: Emergency Provider Emergency Medicine Emergency Medical Services; PCP Family Medicine
DX: R51.9 Headache, unspecified (principal); H53.9 Unspecified visual disturbance; R11.0 Nausea; Z85.6 Personal history of leukemia; Z86.73 Personal history of transient ischemic attack (TIA), and cerebral infarction without residual deficits; Z87.891 Personal history of nicotine dependence
CPT/HCPCS: 36415; 80053; 99284; 70450; 85025

== ENCOUNTER → 2024-03-23 08:10 | Outpatient (BNVA) | payer MEDICARE, SELFPAY | PROVIDERS: PCP Family Medicine; Referring Provider Emergency Medicine Emergency Medical Services; Visit Provider Psychiatry & Neurology Neurology | DX: G62.9 Polyneuropathy, unspecified (principal); R51.9 Headache, unspecified; G89.29 Other chronic pain; R42 Dizziness and giddiness; H53.9 Unspecified visual disturbance | CPT/HCPCS: 99215; G2212 ==

== ENCOUNTER → 2024-04-01 12:37 | Outpatient (BNVA) | payer MEDICARE, SELFPAY | PROVIDERS: PCP Family Medicine; Referring Provider Family Medicine; Visit Provider Psychiatry & Neurology Neurology | DX: R42 Dizziness and giddiness (principal); G62.9 Polyneuropathy, unspecified; R51.9 Headache, unspecified; G89.29 Other chronic pain; H53.9 Unspecified visual disturbance; G56.22 Lesion of ulnar nerve, left upper limb; G56.21 Lesion of ulnar nerve, right upper limb; G56.02 Carpal tunnel syndrome, left upper limb | CPT/HCPCS: 95912; 95923; 99214 ==

== ENCOUNTER 2024-05-14 01:55 | Outpatient (CLI) | payer MEDICARE, SELFPAY ==
[2024-05-14 13:50] LABS: Abs Immature Grans 0.06 10^3/uL (0.0-0.06); Absolute Basophil Count 0.06 10^3/uL (0.0-0.2); Absolute Eosinophil Count 0.15 10^3/uL (0.0-0.7); Absolute Lymphocyte Count 2.15 10^3/uL (1.2-3.4); Absolute Monocyte Count 0.72 10^3/uL (0.1-0.8); Absolute Neutrophil Count 5.78 10^3/uL (1.2-6.7); Basophils % 0.7 %; Eosinophils % 1.7 %; HCT 42.4 % (40.0-50.0); HGB 14.7 g/dL (13.5-17.5); Immature Grans % 0.7 %; Lymphocytes % 24.1 %; MCH 30.2 pg (27.0-33.0); MCHC 34.7 % (32.0-36.0); MCV 87 fL (80-95); MPV 10.1 fL (8.0-11.0); Monocytes % 8.1 %; Neutrophils % 64.7 %; Platelet Count 259 10^3/uL (130-400); RBC 4.87 10^6/uL (4.36-5.78); RDW 12.6 % (11.8-14.1); RDW-SD 39.9 fL; WBC 8.92 10^3/uL (4.4-10.8)
[2024-05-14 14:00] LABS: Hemoglobin A1C 5.1 % (<5.7)
[2024-05-14 14:54] LABS: TSH (W/Ref FT4) 1.19 uIU/mL (0.36-3.74); Vitamin B12 460 pg/mL (193-986)
[2024-05-18 13:47] LABS: PMLR Result see interpretation; Specimen Type EDTA Whole Blood
== END 2024-05-14 01:56 | disposition home or self-care (01) ==
PROVIDERS: Psychiatry & Neurology Neurology; PCP Nurse Practitioner Family; Visit Provider Internal Medicine Hematology & Oncology
DX: R73.9 Hyperglycemia, unspecified (principal); R53.83 Other fatigue; G62.9 Polyneuropathy, unspecified; C92.41 Acute promyelocytic leukemia, in remission
CPT/HCPCS: 36415; 81315; 82607; 83036; 84443; 85025

== ENCOUNTER 2024-05-24 11:07 | Emergency (ER) | payer MEDICARE, SELFPAY ==
[2024-05-24] VITALS (14 sets, daily range): BP systolic 111–125; BP diastolic 62–80; PULSE 60–78; RESP 16–18; TEMP 36.8; O2SAT 97–100
[2024-05-24] MEDS: Normal Saline 1,000 ML 1000 ML IV (11:40)
--- NOTE | 2024-05-24 11:40 | ED.GENADUL_ITS ---
Discharge Plan Disposition Patient Disposition: Home Condition: Stable Discharge Details Clinical Impression: Blunt abdominal trauma, Abdominal wall contusion Primary Care Provider: YASH HA ED Provider: Oc Ortiz Home Meds and New Rx's Prescriptions: Continued bupropion HCl 150 mg tablet extended release 24 hr 150 mg PO QAM escitalopram oxalate 10 mg tablet 10 mg PO DAILY Discharge Instructions Additional Instructions: Your CAT scan did not show any concerning findings, you have a abdominal wall bruise If not better in 1 to 2 weeks follow-up with your primary care provider If you feel more ill or have new symptoms such as persistent vomiting or chest pain return to the emergency department for reevaluation HPI General Mode of arrival: ambulatory . Date/Time Provider Initiated Documentation: 05/24/24 11:12 . Limitations to Documentation: no limitations . Information obtained by: patient . History of Present Illness 48 year old M presents to the emergency department with the chief complaint of right flank pain, described as moderate, Quality is described as aching, Patient started experiencing this day(s) (1) and it has been constant. No relieving factors improve symptom(s), No exacerbating factors reported . Patient notes no other symptoms.. Patient did receive the following treatments prior to arrival, none Related Data Home Medications ?Medication ?Instructions ?Recorded ?Confirmed bupropion HCl 150 mg 24 hr tablet, 150 mg PO QAM 03/23/24 05/24/24 extended release escitalopram oxalate 10 mg tablet 10 mg PO DAILY 03/23/24 05/24/24 Allergies Allergy/AdvReac Type Severity Reaction Status Date / Time ANIMALS Allergy Intermediate Anaphylaxis Uncoded 05/24/24 11:18 General Stated Complaint: Abd Prob TJ: 3 Review of Systems All systems reviewed & are unremarkable except as noted in HPI and below Constitutional Constitutional: Denies chills, Denies fever(s) and Denies weakness Cardiovascular Cardiovascular: Denies chest pain and Denies dyspnea Respiratory Respiratory: Denies cough and Denies dyspnea Gastrointestinal Gastrointestinal: Reports abdominal pain Musculoskeletal Musculoskeletal: Denies joint swelling Neurologic Neurologic: Denies weakness Exam Const General: no acute distress Orientation: alert HENMT Head: normal to inspection Ears: external ears normal General nose exam: external nose normal Mouth: moist mucous membranes Eyes General: appearance normal, both eyes and all related structures Neck Neck: normal visual inspection Chest Chest: no tenderness Resp Effort & Inspection: normal respiratory effort and able to speak in complete sentences Cardio Rate: regular rate GI Palpation: soft and tender Skin General skin exam: no rashes or lesions noted Neuro General: patient alert and patient oriented x3 Extrem General: normal to inspection Psych Mental Status: mental status grossly normal Course Vital Signs Vital signs: Vital Signs Temperature 36.8 C 05/24/24 11:19 Pulse 78 05/24/24 11:19 Respiratory Rate 16 05/24/24 11:19 Blood Pressure 125/80 05/24/24 11:19 Pulse Oximetry 97 05/24/24 11:19 Temperature 36.8 C 05/24/24 11:19 Temperature Source Temporal Artery Scan 05/24/24 11:19 Pulse 78 05/24/24 11:19 Respiratory Rate 16 05/24/24 11:19 Respiratory Effort Normal, Splinting 05/24/24 11:22 Blood Pressure 125/80 05/24/24 11:19 Blood Pressure Position Sitting 05/24/24 11:19 Pulse Oximetry 97 05/24/24 11:19 Oxygen Delivery Method Room Air 05/24/24 11:19 Oxygen Flow Rate 0 05/24/24 11:19 Pain Level 7 05/24/24 11:19 Medical Decision Making 48-year-old male with a history of leukemia in remission comes in after he was cutting down a tree and the branch fell and hit him in the right oblique area. He did not hit his head or have loss of consciousness. This happened yesterday. He had some right oblique and right lower abdomen pain since so came here for evaluation. He denies any chest pain, headache, neck pain, back pain. He is alert and oriented x 4 and arrival. Does have a hematoma on exam on his right oblique area. He has no significant tenderness in the abdomen. I suspect abdominal wall hematoma but will obtain CBC, CMP and abdomen pelvis CT to exclude intra-abdominal pathology. He has no chest tenderness and has no signs of trauma to the head and no midline CT or L-spine tenderness so do not feel additional imaging indicated. pt stable, has small flank contusion on CT otherwise negative ct and labs benign, he is stable for d/c, advised to f/u with his pcp and return precautions given. he has no new pain and has only minimal oblique area pain Differential Diagnosis Differential Diagnosis: hematoma, blunt abdominal sugery Imaging Data Radiologic Study: Attestation: I personally reviewed and interpreted this imaging study as follows: Imaging: CT Scan Radiologist's impression: IMPRESSION: 1. Small soft tissue contusion along the right lateral flank. 2. No displaced rib fracture. 3. No acute abdominal or pelvic organ injury. Quality:[facility] Health Related Social Needs: No Data to Display PFSH All Active Problems (Updated 05/24/24 @ 14:12 by Oc Ortiz MD) Abdominal wall contusion (Acute) Blunt abdominal trauma (Acute) Carpal tunnel syndrome of left wrist (Acute) Ulnar neuropathy at elbow of right upper extremity (Acute) Ulnar neuropathy at elbow of left upper extremity (Acute) Transient vision disturbance (Acute) Chronic headache (Acute) Peripheral neuropathy (Acute) Pericarditis (Acute) Chest pain (Acute) White matter abnormality on MRI of brain (Acute) Abnormal CT of the abdomen (Acute) Lung nodules (Acute) Chronic diarrhea (Acute) Neutropenic fever (Acute) Discharge planning issues (Acute) DVT prophylaxis (Acute) Foot pain, right (Acute) Neutropenia (Acute) Colloid cyst of brain (Acute) Pancytopenia (Acute) Headache (Acute) Dizziness (Acute) Arm pain, left (Acute) Chest pain (Acute) a. Etiology not identified. History of Surgical Procedure (Chronic) a. Cholecystectomy. b. Two hernia surgeries. Stenosis, pylorus (Chronic) a. As an infant. 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
[2024-05-24 11:58] LABS: Abs Immature Grans 0.04 10^3/uL (0.0-0.06); Absolute Basophil Count 0.04 10^3/uL (0.0-0.2); Absolute Eosinophil Count 0.16 10^3/uL (0.0-0.7); Absolute Lymphocyte Count 1.78 10^3/uL (1.2-3.4); Absolute Monocyte Count 0.58 10^3/uL (0.1-0.8); Absolute Neutrophil Count 5.55 10^3/uL (1.2-6.7); Basophils % 0.5 %; HCT 43.6 % (40.0-50.0); HGB 14.7 g/dL (13.5-17.5); Immature Grans % 0.5 %; Lymphocytes % 21.8 %; MCH 30.2 pg (27.0-33.0); MCHC 33.7 % (32.0-36.0); MCV 90 fL (80-95); MPV 10.1 fL (8.0-11.0); Monocytes % 7.1 %; Neutrophils % 68.1 %; Platelet Count 267 10^3/uL (130-400); RBC 4.87 10^6/uL (4.36-5.78); RDW 12.5 % (11.8-14.1); RDW-SD 41.1 fL; WBC 8.15 10^3/uL (4.4-10.8)
[2024-05-24 12:24] LABS: PTT Activated 25.6 sec (23.6-32.8); Prothrombin Time 9.9 sec (9.1-11.1)
[2024-05-24 12:32] LABS: ALT 26 U/L (16-63); AST 22 U/L (15-37); Albumin 3.8 g/dL (3.4-5.0); Alkaline Phosphatase 61 U/L (46-116); Anion Gap 4.4 mmol/L (3-11); BUN 16 mg/dL (7-18); Bilirubin, Total 0.42 mg/dL (0.2-1.0); CO2 29.6 mmol/L (21.0-32.0); Calcium 8.6 mg/dL (8.5-10.1); Chloride 105 mmol/L (98-107); Estimated GFR 92.84 (mL/min/1.73m2); Glucose 97 mg/dL (74-106); Lipase 43 U/L (16-77); Magnesium 1.9 mg/dL (1.8-2.4); Potassium 4.6 mmol/L (3.5-5.1); Sodium 139 mmol/L (136-145); Total Protein 7.1 g/dL (6.4-8.2)
[2024-05-24 12:34] LABS: Bilirubin Negative (Negative); Blood Negative (Negative); Clarity Clear (Clear); Glucose Negative (Negative); Ketones Negative (Negative); Leukocyte Esterase Negative (Negative); Nitrite Negative (Negative); Urobilinogen 0.2 mg/dL (Up to 0.2); pH 6.5 (5-8)
[2024-05-24] MEDS: Omnipaque 350 MG/ML 100 ML BTL IJ (12:57)
[2024-05-24] MEDS: Normal Saline - Diluent 50 ML VIAL IJ (13:00)
--- NOTE | 2024-05-24 13:11 | DI.CT_ITS ---
Exam(s) CT ABDOMEN PELVIS W EXAM: CT ABDOMEN PELVIS W CLINICAL HISTORY: tree hit right flank, pain, ?hematoma TECHNIQUE: Imaging Protocol: Axial computed tomography images with coronal and sagittal reformatted images were created and reviewed. CONTRAST MATERIAL: Intravenous: Omnipaque 350 Contrast volume:100 mL Oral: No COMPARISON: CT CT CHEST PE ABD PELVIS W from 02/11/[address] CHEST PE CTA from 05/10/2021 FINDINGS: ABDOMEN: Lung Bases: Normal where visualized. Liver: Normal density. No measurable mass. Portal, Superior Mesenteric, and Splenic Veins: Unremarkable. Gallbladder and Biliary Tract: Status post cholecystectomy. Pancreas: Normal density, no abnormal calcifications or inflammatory process. Spleen: Normal. Adrenals: No masses seen. Kidneys: Normal size, contour and axis. No radiodense stones or obstructive uropathy. No masses seen. Abdominal Aorta: Abdominal portion non-dilated. Atherosclerotic calcifications are present. Bowel: No obstruction or bowel wall thickening. Appendix is unremarkable. The stomach is incompletely distended limiting evaluation. Peritoneal Cavity: No ascites, collection or mesenteric inflammatory response. No free air. Lymph Nodes: Within normal limits. Bones: Within normal limits for the patient's age. No displaced rib fracture. Soft Tissues: There is mild infiltration of the subcutaneous fat along the right lateral flank likely reflecting a contusion. PELVIS: Bladder: Symmetric distention, no gross wall thickening. Reproductive Organs: Unremarkable as visualized. Lymph Nodes: Within normal limits. Bones: Within normal limits for the patient's age. IMPRESSION: 1. Small soft tissue contusion along the right lateral flank. 2. No displaced rib fracture. 3. No acute abdominal or pelvic organ injury. RADIATION DOSE DELIVERED: Total DLP DATA REPOSITORY: All CT scans at this facility are submitted to the National Radiology Data Registry (NRDR) Dose Index Registry (DIR) with the [employer] (ACR). RADIATION OPTIMIZATION: All CT scans at this facility use at least one of these dose optimization te chniques: automated exposure control; mA and/or kV adjustment per patient size (includes targeted exa ms where dose is matched to clinical indication); or iterative reconstruction.
[2024-05-24] MEDS: Acetaminophen 500 MG TAB 1000 MG PO (14:22)
== END 2024-05-24 14:24 | disposition home or self-care (01) ==
PROVIDERS: Emergency Provider Emergency Medicine; PCP Nurse Practitioner Family
DX: S30.1XXA Contusion of abdominal wall, initial encounter (principal); S39.81XA Other specified injuries of abdomen, initial encounter; W22.8XXA Striking against or struck by other objects, initial encounter; Y93.H2 Activity, gardening and landscaping
CPT/HCPCS: 80053; 83690; 86850; 86900; 86901; 96360; 96361; 99285; 74177; 81003; 83735; 85025; 85610; 85730; 99283; J3490

== ENCOUNTER → 2024-11-16 09:34 | Outpatient (BNVA) | payer MEDICARE, SELFPAY | PROVIDERS: PCP Nurse Practitioner Family; Referring Provider Nurse Practitioner Family; Visit Provider Psychiatry & Neurology Neurology | DX: G62.9 Polyneuropathy, unspecified (principal); R51.9 Headache, unspecified; G89.29 Other chronic pain; G56.22 Lesion of ulnar nerve, left upper limb; G56.21 Lesion of ulnar nerve, right upper limb; G56.02 Carpal tunnel syndrome, left upper limb; G25.0 Essential tremor; R42 Dizziness and giddiness | CPT/HCPCS: 99214 ==

== ENCOUNTER 2024-12-07 00:45 | Outpatient (CLI) | payer MEDICARE, SELFPAY ==
[2024-12-07 09:58] LABS: Abs Immature Grans 0.05 10^3/uL (0.0-0.06); Absolute Basophil Count 0.04 10^3/uL (0.0-0.2); Absolute Eosinophil Count 0.32 10^3/uL (0.0-0.7); Absolute Lymphocyte Count 2.48 10^3/uL (1.2-3.4); Absolute Monocyte Count 0.64 10^3/uL (0.1-0.8); Absolute Neutrophil Count 4.23 10^3/uL (1.2-6.7); Basophils % 0.5 %; Eosinophils % 4.1 %; HCT 47.8 % (40.0-50.0); HGB 16.2 g/dL (13.5-17.5); Immature Grans % 0.6 %; MCH 29.9 pg (27.0-33.0); MCHC 33.9 % (32.0-36.0); MCV 88 fL (80-95); MPV 10.2 fL (8.0-11.0); Monocytes % 8.2 %; Neutrophils % 54.6 %; Platelet Count 285 10^3/uL (130-400); RBC 5.41 10^6/uL (4.36-5.78); RDW 12.4 % (11.8-14.1); RDW-SD 40.1 fL; WBC 7.76 10^3/uL (4.4-10.8)
[2024-12-07 10:39] LABS: ALT 22 U/L (16-63); AST 16 U/L (15-37); Albumin 3.8 g/dL (3.4-5.0); Alkaline Phosphatase 94 U/L (46-116); BUN 14 mg/dL (7-18); Calcium 8.8 mg/dL (8.5-10.1); Chloride 101 mmol/L (98-107); Estimated GFR 92.26 (mL/min/1.73m2); Glucose 96 mg/dL (74-106); Potassium 4.4 mmol/L (3.5-5.1); Sodium 135 mmol/L (136-145); Total Protein 7.7 g/dL (6.4-8.2)
[2024-12-10 12:48] LABS: PMLR Result see interpretation; Specimen Type EDTA WHOLE BLOOD
== END 2024-12-07 00:46 | disposition home or self-care (01) ==
PROVIDERS: PCP Nurse Practitioner Family; Visit Provider Internal Medicine Hematology & Oncology
DX: C92.41 Acute promyelocytic leukemia, in remission (principal)
CPT/HCPCS: 36415; 80053; 81315; 85025

== ENCOUNTER 2024-12-23 11:48 | Outpatient (CLI) | payer MEDICARE, SELFPAY ==
--- NOTE | 2024-12-23 08:45 | DI.RAD_ITS ---
Exam(s) XR WRIST RT COMPLETE EXAM: XR WRIST RT COMPLETE CLINICAL HISTORY: wrist pain. TECHNIQUE: 2D digital imaging was performed of the right wrist. Three views were obtained. PA, lat eral and oblique views were obtained. COMPARISON: CR RIGHT WRIST COMPLETE from 11/26/2007 FINDINGS: BONES: No acute fracture is present. No bony destructive lesion is seen. JOINTS: The carpal bones are normally aligned. SOFT TISSUE: Normal. IMPRESSION: Unremarkable radiographs of the right wrist. DATA REPOSITORY: RADIATION DOSE DELIVERED:
== END 2024-12-23 11:49 | disposition home or self-care (01) ==
LOC: DIORS 15:21
PROVIDERS: PCP Nurse Practitioner Family; Referring Provider Nurse Practitioner Family; Visit Provider Student in an Organized Health Care Education/Training Program
DX: M19.031 Primary osteoarthritis, right wrist (principal)
CPT/HCPCS: 99213; 73110

== ENCOUNTER 2025-03-24 08:14 | Emergency (ER) | payer OTHER, SELFPAY ==
[2025-03-24 08:15] VITALS: BP 158/81; PULSE 79; RESP 16; TEMP 36.3; O2SAT 99
--- NOTE | 2025-03-24 08:30 | DI.RAD_ITS ---
Exam(s) XR HIP LT COMPLETE AP PELVIS EXAM: XR HIP LT COMPLETE AP PELVIS CLINICAL HISTORY: pain with radiation, chiropracter questions disloc. TECHNIQUE: 2D digital imaging was performed. Two views. COMPARISON: CT CT ABDOMEN PELVIS W from 05/24/2024 FINDINGS: BONES: No acute fracture is present. No bony destructive lesion is seen. There is sacralization of the left L5 transverse process. JOINTS: No dislocation present. The SI joints and pubic symphysis are intact. No significant degenera tive changes of the hips. There is spurring at the upper left SI joint. SOFT TISSUE: Normal. IMPRESSION: No acute abnormality. DATA REPOSITORY: RADIATION DOSE DELIVERED:
--- NOTE | 2025-03-24 08:53 | ED.GENADUL_ITS ---
Discharge Plan Disposition Patient Disposition: Home Condition: Good Discharge Details Clinical Impression: Acute pain of left hip Primary Care Provider: YASH HA ED Provider: Carrie Pena Home Meds and New Rx's Prescriptions: New gabapentin 300 mg capsule 300 mg PO TID Qty: 30 0RF Continued escitalopram oxalate 10 mg tablet 10 mg PO DAILY meloxicam 15 mg tablet 15 mg PO DAILY Qty: 90 0RF bupropion HCl 300 mg tablet extended release 24 hr 300 mg PO QAM Discharge Instructions Instructions: Hip Pain ED Additional Instructions: Your x-ray, CT and labs are reassuring here today. No evidence to suggest a fracture, dislocation, subluxation or recurrence of your leukemia. As we discussed, this could be associated with compression of that nerve that caused the pain down the anterior aspect of your thigh. This is compression of the lateral femoral cutaneous nerve. Please consider stopping wearing your belt and evaluate for anything else that may cause compression over this area. Referral for physical therapy is attached. You may continue with Tylenol and ibuprofen as discomfort. As this is a nerve pain, I have prescribed you gabapentin to help with the pain. Please take this as directed. This can cause some sedation so please take only as directed and do not drink alcohol using this medication. Please follow-up with your primary care in the next 1 to 2 weeks for reevaluation. If you develop any new or worsening symptoms please seek care urgently once again. Stand Alone Forms: Physical Therapy Referral Referrals: YASH HA, SHINGLE PACKER [Primary Care Provider] - Discharge Data Discharge Date/Time-TO BE ENTERED AT DEPARTURE: 03/24/25 12:54 HPI General Date/Time Provider Initiated Documentation: 03/24/25 08:39 . Limitations to Documentation: no limitations . Information obtained by: patient and RN notes reviewed . History of Present Illness 49 year old M presents to the emergency department with the chief complaint of left hip pain, described as severe, with intensity rated at 8. Quality is described as aching and sharp, and is localized to the left and lower extremity. Patient extremity. Patient started experiencing this day(s) and it has been constant. Immobilization improves symptom(s), Movement worsens symptoms . Patient notes no other symptoms.; denies chest pain, cough, diaphoresis, loss of appetite, malaise, nausea/vomiting, rash, shortness of breath and weakness (pain but no real weakness). Patient did receive the following treatments prior to arrival, other (APAP, chiropracter) Related Data Home Medications ?Medication ?Instructions ?Recorded ?Confirmed escitalopram oxalate 10 mg tablet 10 mg PO DAILY 03/23/24 03/24/25 bupropion HCl 300 mg 24 hr tablet, 300 mg PO QAM 11/25/24 03/24/25 extended release meloxicam 15 mg tablet 15 mg PO DAILY pain #90 tabs 12/23/24 03/24/25 gabapentin 300 mg capsule 300 mg PO TID #30 caps 03/24/25 Previous Rx's ?Medication ?Instructions ?Recorded meloxicam 15 mg tablet 15 mg PO DAILY pain #90 tabs 12/23/24 gabapentin 300 mg capsule 300 mg PO TID #30 caps 03/24/25 Allergies Allergy/AdvReac Type Severity Reaction Status Date / Time ANIMALS Allergy Intermediate Anaphylaxis Uncoded 03/24/25 08:21 General Stated Complaint: Orthopedic TJ: 3 Review of Systems Constitutional Constitutional: Reports as per HPI, Denies chills, Denies fever(s), Denies headache(s) and Denies weakness ENT Ears, Nose, Mouth, and Throat: Denies headache(s) Cardiovascular Cardiovascular: Reports as per HPI Respiratory Respiratory: Reports as per HPI and Denies cough Musculoskeletal Musculoskeletal: Reports as per HPI and Denies tingling Integumentary/Breasts Skin/Breast: Reports as per HPI, Denies rash and Denies wounds Neurologic Neurologic: Reports as per HPI, Denies headache(s), Denies tingling, Denies paresthesias and Denies weakness Exam Const General: cooperative, healthy appearing, comfortable, no acute distress, well developed and well groomed Nutritional Appearance: average body habitus and well nourished Orientation: alert and awake Resp Effort & Inspection: normal respiratory effort, able to speak in complete sentences and no respiratory distress Cardio Rate: regular rate Rhythm: regular rhythm Skin General skin exam: no rashes or lesions noted Lesions: no lesions Rashes: no rashes Trauma: no lacerations or abrasions Neuro General: patient alert and patient awake Cognition: normal cognition Speech: speech normal Motor: muscle tone normal throughout Sensory Exam: no sensory deficits noted Extrem General: normal to inspection, full ROM, capillary refill normal, no pedal edema, no calf tenderness and abnormal gait (antalgic) Left lower extremity: full ROM, normal capillary refill and no joint enlargement; no cyanosis and no edema Upper/lower leg/hip images: 2 1. Patient is area maximal discomfort with pain that radiating anteriorly to the knee. No posterior pain. 2+ distal pulses. Sensation is intact. He has good range of motion although he does have pain at maximal is over this area when he is abducting the thigh. Forage motion of the knee with no pain at the knee itself but this does induce some discomfort in the hip. He has no pain over the greater trochanter. No rash, erythema or swelling. No midline tenderness with palpation over the spine. Course Vital Signs Vital signs: Vital Signs Temperature 36.3 C L 03/24/25 08:15 Pulse 79 03/24/25 08:15 Respiratory Rate 16 03/24/25 08:15 Blood Pressure 158/81 H 03/24/25 08:15 Pulse Oximetry 99 03/24/25 08:15 Temperature 36.3 C L 03/24/25 08:15 Temperature Source Temporal Artery Scan 03/24/25 08:15 Pulse 79 03/24/25 08:15 Respiratory Rate 16 03/24/25 08:15 Blood Pressure 158/81 H 03/24/25 08:15 Blood Pressure Position Sitting 03/24/25 08:15 Pulse Oximetry 99 03/24/25 08:15 Oxygen Delivery Method Room Air 03/24/25 08:15 Oxygen Flow Rate 0 03/24/25 08:15 Pain Level 8 03/24/25 08:15 Medical Decision Making Patient is a pleasant 49-year-old gentleman with a past medical history significant for pancytopenia, neutropenic fever, CATE, presenting today with chief complaint of left hip pain. Reports he has had the pain for the past several days the pain has been quite severe to the point that he is having difficulty sleeping. Pain made significantly worse with any type of movement, particularly flexion either hip. He does have chronic low back pain but states that this feels baseline and unchanged. Was seen by his chiropractor's concern for subluxation of the left hip. Patient denies any groin pain. Pain does radiate from the lateral aspect of the left hip laterally down the anterior aspect of the left thigh. No numbness or tingling. No known trauma. States he does not do a lot of lifting for work. Has not had pain like this historically. 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 I did confirm the loss blood work I can see is from December of this year. Has not had any fevers or chills. Denies any systemic symptoms that he had had previously with his leukemia. On exam, patient appears nontoxic. Appears uncomfortable with movement but when he is being still, appears quite comfortable. He is hemodynamically stable. He is 2+ distal pulses. Sensation is intact throughout. He is good range of motion of the ankle and the knee but flexion of the knee does increase his discomfort in the left hip. Pain seems to be more in the lateral gluteal region rather than directly over the hip or into the groin at all. He has no pain with axial loading of the hip. No pain directly over the greater trochanter to suggest bursitis. No abdominal pain or CVA tenderness. No rashes or swelling. No objective evidence of trauma. Will start with x-ray. Patient did take ibuprofen prior to arrival, will augment this with Tylenol. Based on the location of the discomfort, consider myalgia paresthetica, patient does wear a belt but denies this being overly tight. X-ray was obtained, no acute abnormality. Reevaluated the patient continues to still be very uncomfortable. With the patient's history of leukemia and insidious onset, will obtain a CT scan to evaluate for any potential bony abnormalities as well as obtain baseline blood work. I did discuss this with the patient who is in agreement. Lab works reassuring. No leukocytosis. Stable H&H without any abnormalities on the differential for CBC. CMP without significant abnormality. CT was reviewed by radiologist who noted some bony islands but no acute pathology in the bone or evidence to suggest any lytic lesions. I discussed these findings with the patient. He does wear a belt routinely and the location of the pain is significant for lateral cutaneous nerve impingement and subsequent discomfort. Patient I discussed treatment options. He will be referred to physical therapy, has good luck with them in the past. Will also trial the patient on gabapentin as the description of the pain certainly sounds to be nerve mediated. I believe this will offer better analgesic for the patient. Strict return precautions were discussed. Encourage close follow-up with primary care. All his questions and concerns were addressed and he is in agreement this plan. This documentation was generated using [employer] system, please disregard any oddities of phrase or misspellings. Quality:SDOH Health Related Social Needs: 2 No Data to Display PFSH All Active Problems (Updated 03/24/25 @ 12:37 by JUNE Cruz) Acute pain of left hip (Acute) Arthritis of right wrist (Acute) Essential tremor (Acute) Carpal tunnel syndrome of left wrist (Acute) Ulnar neuropathy at elbow of right upper extremity (Acute) Ulnar neuropathy at elbow of left upper extremity (Acute) Transient vision disturbance (Acute) Chronic headache (Acute) Peripheral neuropathy (Acute) Pericarditis (Acute) Chest pain (Acute) White matter abnormality on MRI of brain (Acute) Abnormal CT of the abdomen (Acute) Lung nodules (Acute) Chronic diarrhea (Acute) Neutropenic fever (Acute) Discharge planning issues (Acute) DVT prophylaxis (Acute) Foot pain, right (Acute) Neutropenia (Acute) Colloid cyst of brain (Acute) Pancytopenia (Acute) Headache (Acute) Dizziness (Acute) Arm pain, left (Acute) Chest pain (Acute) a. Etiology not identified. History of Surgical Procedure (Chronic) a. Cholecystectomy. b. Two hernia surgeries. Stenosis, pylorus (Chronic) a. As an . 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 [employer] Do you feel safe at home: Yes Do you feel safe in your relationship?: Yes PAWSS Have you Been Recently Intoxicated or Drunk Within the Last 30 days?: No Have you Ever Experienced Previous Episodes of Alcohol Withdrawal?: No Have you ever Experienced Withdrawal Seizures?: No Have you ever Experienced Delirium Tremens(DT)s?: No Have you ever undergone Alcohol Rehabilitation Treatment (i.e, inpt ot outpatient treatment programs)?: No Have you ever Experienced Blackouts?: No Have you ever Combined Alcohol with other Downers within the last 90 days?: No Have you ever Combined Alcohol with any other Substance of Abuse during the last 90 days?: No Result: 0
[2025-03-24] MEDS: Acetaminophen 500 MG TAB 1000 MG PO (09:29)
--- NOTE | 2025-03-24 10:15 | DI.CT_ITS ---
Exam(s) CT LOWER EXTREMITY LT WO EXAM: CT LOWER EXTREMITY LT WO CLINICAL HISTORY: hip/pelvic pain left, hx leukemia. TECHNIQUE: Imaging Protocol: Axial computed tomography images with coronal and sagittal reformatted images were created and reviewed. CONTRAST MATERIAL: Intravenous: Omnipaque 350 Contrast volume:structured data in ml Contrast route:IV - COMPARISON: CT CT CHEST PE ABD PELVIS W from 02/11/[address] CHEST PE CTA from 05/10/[address] ABDOMEN PELVIS W from 05/24/2024 CR XR HIP LT COMPLETE AP PELVIS from 03/24/2025 FINDINGS: Bones: There is no evidence of fracture or dislocation. No cellulitic or osteomyelitic changes are identified. There are 2 small rounded areas of low density in the right ileum which appear stable. Additional lo w-density lesion is noted in the right iliac wing. There is an area of sclerosis in the left ilium w hich appears stable. There is a bone island in left femoral head and femoral neck. Joints: There is no significant joint space narrowing of the hip joints. Mild periarticular spurrin g. There is spurring at the superior left SI joint. Soft Tissues: The bladder is overly distended but unremarkable. Appendix is visualized and is not d istended. IMPRESSION: No acute abnormality of the pelvis or left hip. Stable sclerotic foci which likely represent bone islands. Stable small areas of lucency in the left ilium since 2020. RADIATION DOSE DELIVERED: 271.56mGy.cm Total DLP DATA REPOSITORY: All CT scans at this facility are submitted to the National Radiology Data Registry (NRDR) Dose Index Registry (DIR) with the [employer] (A[employer]). RADIATION OPTIMIZATION: All CT scans at this facility use at least one of these dose optimization te chniques: automated exposure control; mA and/or kV adjustment per patient size (includes targeted exa ms where dose is matched to clinical indication); or iterative reconstruction.
[2025-03-24 10:37] LABS: Abs Immature Grans 0.03 10^3/uL (0.0-0.06); Absolute Basophil Count 0.06 10^3/uL (0.0-0.2); Absolute Eosinophil Count 0.25 10^3/uL (0.0-0.7); Absolute Lymphocyte Count 1.96 10^3/uL (1.2-3.4); Absolute Monocyte Count 0.59 10^3/uL (0.1-0.8); Absolute Neutrophil Count 4.62 10^3/uL (1.2-6.7); Basophils % 0.8 %; Eosinophils % 3.3 %; HCT 43.5 % (40.0-50.0); HGB 14.8 g/dL (13.5-17.5); Immature Grans % 0.4 %; Lymphocytes % 26.1 %; MCH 29.9 pg (27.0-33.0); MCV 88 fL (80-95); MPV 10.4 fL (8.0-11.0); Monocytes % 7.9 %; Neutrophils % 61.5 %; Platelet Count 252 10^3/uL (130-400); RBC 4.95 10^6/uL (4.36-5.78); RDW 12.4 % (11.8-14.1); RDW-SD 39.8 fL; WBC 7.51 10^3/uL (4.4-10.8)
[2025-03-24 10:55] LABS: ALT 22 U/L (16-63); AST 16 U/L (15-37); Albumin 3.8 g/dL (3.4-5.0); Alkaline Phosphatase 64 U/L (46-116); Anion Gap 1.9 mmol/L (3-11); BUN 15 mg/dL (7-18); Bilirubin, Total 0.3 mg/dL (0.2-1.0); CO2 31.1 mmol/L (21.0-32.0); CREATININE 0.9 mg/dL (0.70-1.30); Calcium 8.7 mg/dL (8.5-10.1); Chloride 105 mmol/L (98-107); Glucose 91 mg/dL (74-106); Potassium 4.7 mmol/L (3.5-5.1); Sodium 138 mmol/L (136-145); Total Protein 6.8 g/dL (6.4-8.2)
[2025-03-24 11:35] VITALS: BP 131/75; PULSE 65; O2SAT 97
[2025-03-24 12:39] VITALS: BP 127/70; PULSE 73; RESP 14; O2SAT 97
[2025-03-24] MEDS: Lidocaine 5% Patch 1 PATCH TP (12:50)
== END 2025-03-24 12:54 | disposition home or self-care (01) ==
PROVIDERS: Emergency Provider Physician Assistant; PCP Nurse Practitioner Family
DX: M25.552 Pain in left hip (principal); Z85.6 Personal history of leukemia
CPT/HCPCS: 99284; 99285; 36415; 80053; 73502; 73700; 85025